=== PATIENT | male | born 1960 | race Caucasian/White ===

== ENCOUNTER 2017-12-25 15:15 | Emergency (ER) | payer OTHER ==
[~2017-12-25] VITALS: Ht 162.6 cm; Wt 74.8 kg
[~2017-12-25 15:15] MED LIST: ALLO100; AMLO10 PO; AMLO5 PO; AMLODIPINE-BEN1 EACH PO; CHLO10 PO; CHLO25 PO; Dilantin 100 m100 MG PO; LEVE500 PO; NIX59 ML EXT; PHENY100ER; THIA100 PO; Therapeutic M1 EAC5 PO
[2017-12-25] MEDS ORDERED: NIX59 ML TOP (15:50)
[2018-10-08] MEDS ORDERED: AMLO5 PO (09:29)
[2018-10-08] MEDS ORDERED: LEVE500 PO (09:29)
[2018-10-08] MEDS ORDERED: ZESTRIL40 MG PO (09:29)
[2018-10-08] MEDS ORDERED: AMIT75 PO (09:30)
[2018-10-08] MEDS ORDERED: MICROZIDE12.5 MG PO (09:30)
[2018-10-08] MEDS ORDERED: GABA300 (09:30)
[2018-10-08] MEDS ORDERED: Hair, Skin & N1 EACH PO (09:31)
[2018-10-08] MEDS ORDERED: VENL37.5ER PO (09:31)
[2018-10-08] MEDS ORDERED: Calci-Chew500 MG PO (09:31)
[2018-10-08] MEDS ORDERED: CRANBERRY250 MG PO (09:31)
== END 2017-12-25 16:00 | disposition home or self-care (01) ==
LOC: ER 15:15
DX: B86 Scabies (principal); F17.210 Nicotine dependence, cigarettes, uncomplicated; Z88.5 Allergy status to narcotic agent; Z59.0 Homelessness
CPT/HCPCS: 99283

== ENCOUNTER 2018-01-08 17:49 | Emergency (ER) | payer OTHER ==
[~2018-01-08] VITALS: Ht 172.7 cm; Wt 72.6 kg
[~2018-01-08 17:49] MED LIST changes: +NIX59 ML TOP
[2018-01-08] MEDS ORDERED: HYDHCL25 PO (17:59)
[2018-01-08] MEDS ORDERED: NIX59 ML EXT (17:59)
[2018-10-08] MEDS ORDERED: LEVE500 PO (09:29)
[2018-10-08] MEDS ORDERED: AMLO5 PO (09:29)
[2018-10-08] MEDS ORDERED: ZESTRIL40 MG PO (09:29)
[2018-10-08] MEDS ORDERED: GABA300 (09:30)
[2018-10-08] MEDS ORDERED: MICROZIDE12.5 MG PO (09:30)
[2018-10-08] MEDS ORDERED: AMIT75 PO (09:30)
[2018-10-08] MEDS ORDERED: VENL37.5ER PO (09:31)
[2018-10-08] MEDS ORDERED: CRANBERRY250 MG PO (09:31)
[2018-10-08] MEDS ORDERED: Hair, Skin & N1 EACH PO (09:31)
[2018-10-08] MEDS ORDERED: Calci-Chew500 MG PO (09:31)
== END 2018-01-08 18:15 | disposition home or self-care (01) ==
LOC: ER 17:49
DX: B85.2 Pediculosis, unspecified (principal); L29.9 Pruritus, unspecified; F17.210 Nicotine dependence, cigarettes, uncomplicated; Z88.5 Allergy status to narcotic agent; Z59.0 Homelessness
CPT/HCPCS: 99283

== ENCOUNTER 2018-01-26 00:13 | Emergency (ER) | payer OTHER ==
[~2018-01-26] VITALS: Ht 162.6 cm; Wt 63.5 kg
[~2018-01-26 00:13] MED LIST changes: +HYDHCL25 PO
[2018-01-26 00:48] LABS: BASOPHILS ABSOLUTE AUTO 0.09 K/mm3 (0.00-0.23); BASOPHILS PERCENT AUTO 1 % (0-2); EOSINOPHILS ABSOLUTE AUTO 0.71 K/mm3 (0.00-0.68); EOSINOPHILS PERCENT AUTO 7 % (0-6); Hematocrit 37.5 % (37.0-53.0); Hemoglobin 12.2 g/dL (13.5-17.5); IMMATURE GRAN PERCENT AUTO 2 % (0-1); LYMPHOCYTES PERCENT AUTO 20 % (21-46); MONOCYTES ABSOLUTE AUTO 0.83 K/mm3 (0.16-1.47); MONOCYTES PERCENT AUTO 9 % (4-13); Mean Corpuscular HGB 31.3 pg (26.0-34.0); Mean Corpuscular HGB Conc 32.5 g/dL (31.5-36.5); Mean Corpuscular Volume 96 fL (80-100); NEUTROPHILS ABSOLUTE AUTO 5.97 K/mm3 (1.96-9.15); NEUTROPHILS PERCENT AUTO 61 % (41-73); Platelet Count 527 K/mm3 (150-400); RDW Coefficient Variation 13.8 % (11.7-14.2); RDW Standard Deviation 49.1 fL (35.1-46.3)
[2018-01-26 01:02] LABS: International Normalized Ratio 1.02; Prothrombin Time Results 10.6 Sec (9.7-11.5)
[2018-01-26 01:11] LABS: Alanine Aminotransfer (ALT/SGP 22 U/L (12-78); Albumin, Blood 2.4 g/dL (3.4-5.0); Albumin/Globulin Ratio 0.4 (0.8-1.8); Alk Phos 78 U/L (50-136); Anion Gap 10 mmol/L (6-16); Aspartate Aminotrans (AST/SGOT 31 U/L (12-37); Bilirubin, Total 0.1 mg/dL (0.1-1.0); Blood Urea Nitrogen 15 mg/dL (8-24); CO2, Blood 26 mmol/L (21-32); Calcium, Blood 8.2 mg/dL (8.5-10.1); Chloride, Blood 104 mmol/L (98-108); Creatinine, Blood 0.83 mg/dL (0.60-1.20); Ethanol (Alcohol), Blood, Med 247 mg/dL; Globulin, Blood 5.9 g/dL (2.2-4.0); Glomerular Filtration Rate >60 (60-); Glucose, Blood 102 mg/dL (70-99); Potassium, Blood 3.8 mmol/L (3.5-5.5); Salicylate 2.7 mg/dL (2.8-20.0); Sodium, Blood 140 mmol/L (136-145); Total Protein, Blood 8.3 g/dL (6.4-8.2); Troponin I <0.015 ng/mL (0.000-0.040)
[2018-01-26 01:15] LABS: Thyroid Stimulating Hormone 0.892 uIU/mL (0.360-4.800)
[2018-01-26 01:22] LABS: Acetaminophen, Random <2.0 ug/mL (10.0-30.0)
[2018-01-26 04:37] LABS: Source, Urine Clean Catch
[2018-01-26 04:41] LABS: Bilirubin, Urine Neg (Neg); Blood, Urine Neg (Neg); Glucose Qualitative, Urine Neg (Neg); Ketones, Urine Neg (Neg); Leukocyte Esterase, Urine Neg (Neg); Nitrite, Urine Neg (Neg); Protein, Urine Neg (Neg); Urobilinogen, Urine NORM (Normal)
[2018-01-26 04:52] LABS: Appearance, Urine Clear (Clear); Color, Urine Yellow (P-Yellow)
[2018-01-26 04:59] LABS: U Amphetamine Screen Not Detected; U Barbituate Screen Not Detected; U Benzodiazapine Screen DETECTED; U Buprenorphine Screen Not Detected; U Cannabinoids Screen DETECTED; U Cocaine Screen Not Detected; U Methadone Screen Not Detected; U Methamphetamine Screen Not Detected; U Opiates Screen Not Detected; U Oxycodone Screen Not Detected; U Phencyclidine Screen Not Detected; U Propoxyphene Screen Not Detected
[2018-10-08] MEDS ORDERED: ZESTRIL40 MG PO (09:29)
[2018-10-08] MEDS ORDERED: LEVE500 PO (09:29)
[2018-10-08] MEDS ORDERED: AMLO5 PO (09:29)
[2018-10-08] MEDS ORDERED: AMIT75 PO (09:30)
[2018-10-08] MEDS ORDERED: MICROZIDE12.5 MG PO (09:30)
[2018-10-08] MEDS ORDERED: GABA300 (09:30)
[2018-10-08] MEDS ORDERED: CRANBERRY250 MG PO (09:31)
[2018-10-08] MEDS ORDERED: Hair, Skin & N1 EACH PO (09:31)
[2018-10-08] MEDS ORDERED: VENL37.5ER PO (09:31)
[2018-10-08] MEDS ORDERED: Calci-Chew500 MG PO (09:31)
== END 2018-01-26 06:06 | disposition home or self-care (01) ==
LOC: ER 00:13
PROVIDERS: Emergency Medicine
DX: T68.XXXA Hypothermia, initial encounter (principal); F10.129 Alcohol abuse with intoxication, unspecified; F17.210 Nicotine dependence, cigarettes, uncomplicated; Z88.5 Allergy status to narcotic agent; Y90.8 Blood alcohol level of 240 mg/100 ml or more
CPT/HCPCS: 36415; 80053; 81003; 82550; 83690; 84443; 84484; 85025; 85610; 85730; 96361; 96374; 99285; G0480; J2405; J7030

== ENCOUNTER 2018-02-08 14:08 | Inpatient (IN) | payer OTHER ==
[~2018-02-08] VITALS: Ht 162.6 cm; Wt 75.5 kg
[2018-02-08 15:45] LABS: BASOPHILS ABSOLUTE AUTO 0.06 K/mm3 (0.00-0.23); BASOPHILS PERCENT AUTO 1 % (0-2); EOSINOPHILS ABSOLUTE AUTO 0.26 K/mm3 (0.00-0.68); EOSINOPHILS PERCENT AUTO 2 % (0-6); Hematocrit 27.3 % (37.0-53.0); Hemoglobin 8.6 g/dL (13.5-17.5); IMMATURE GRAN ABSOLUTE AUTO 0.27 K/mm3 (0.00-0.10); IMMATURE GRAN PERCENT AUTO 2 % (0-1); LYMPHOCYTES ABSOLUTE AUTO 1.32 K/mm3 (0.84-5.20); LYMPHOCYTES PERCENT AUTO 11 % (21-46); MONOCYTES PERCENT AUTO 7 % (4-13); Mean Corpuscular HGB 29.5 pg (26.0-34.0); Mean Corpuscular HGB Conc 31.5 g/dL (31.5-36.5); Mean Corpuscular Volume 94 fL (80-100); Mean Platelet Volume 9.3 fL (9.1-12.4); NEUTROPHILS ABSOLUTE AUTO 8.93 K/mm3 (1.96-9.15); NEUTROPHILS PERCENT AUTO 77 % (41-73); Platelet Count 675 K/mm3 (150-400); RDW Coefficient Variation 16.2 % (11.7-14.2); RDW Standard Deviation 55.9 fL (35.1-46.3); Red Blood Cell Count 2.92 M/mm3 (4.30-5.90); White Blood Cell Count 11.64 K/mm3 (4.00-11.30)
[2018-02-08 15:57] LABS: Alanine Aminotransfer (ALT/SGP 28 U/L (12-78); Albumin, Blood 1.7 g/dL (3.4-5.0); Albumin/Globulin Ratio 0.3 (0.8-1.8); Alk Phos 120 U/L (50-136); Anion Gap 8 mmol/L (6-16); Aspartate Aminotrans (AST/SGOT 47 U/L (12-37); Bilirubin, Total 0.3 mg/dL (0.1-1.0); Blood Urea Nitrogen 21 mg/dL (8-24); Bun/Creatinine Ratio 16.8 (12.0-20.0); CO2, Blood 28 mmol/L (21-32); Calcium, Blood 8.5 mg/dL (8.5-10.1); Chloride, Blood 102 mmol/L (98-108); Creatinine, Blood 1.25 mg/dL (0.60-1.20); Glomerular Filtration Rate >60 (60-); Glucose, Blood 98 mg/dL (70-99); Potassium, Blood 3.7 mmol/L (3.5-5.5); Sodium, Blood 138 mmol/L (136-145); Total Protein, Blood 7.7 g/dL (6.4-8.2)
[2018-02-08 17:59] LABS: Percent Saturation 6.5 % (20.0-50.0)
[2018-02-09 05:01] LABS: BASOPHILS ABSOLUTE AUTO 0.06 K/mm3 (0.00-0.23); BASOPHILS PERCENT AUTO 1 % (0-2); EOSINOPHILS ABSOLUTE AUTO 0.27 K/mm3 (0.00-0.68); EOSINOPHILS PERCENT AUTO 2 % (0-6); Hematocrit 26.3 % (37.0-53.0); Hemoglobin 8.4 g/dL (13.5-17.5); IMMATURE GRAN ABSOLUTE AUTO 0.29 K/mm3 (0.00-0.10); IMMATURE GRAN PERCENT AUTO 3 % (0-1); LYMPHOCYTES ABSOLUTE AUTO 1.53 K/mm3 (0.84-5.20); LYMPHOCYTES PERCENT AUTO 13 % (21-46); MONOCYTES PERCENT AUTO 6 % (4-13); Mean Corpuscular HGB 29.3 pg (26.0-34.0); Mean Corpuscular HGB Conc 31.9 g/dL (31.5-36.5); Mean Corpuscular Volume 92 fL (80-100); Mean Platelet Volume 9.2 fL (9.1-12.4); NEUTROPHILS ABSOLUTE AUTO 8.79 K/mm3 (1.96-9.15); NEUTROPHILS PERCENT AUTO 76 % (41-73); Platelet Count 663 K/mm3 (150-400); RDW Coefficient Variation 16.5 % (11.7-14.2); Red Blood Cell Count 2.87 M/mm3 (4.30-5.90); White Blood Cell Count 11.64 K/mm3 (4.00-11.30)
[2018-02-09 05:13] LABS: Albumin, Blood 1.6 g/dL (3.4-5.0); Anion Gap 9 mmol/L (6-16); Blood Urea Nitrogen 14 mg/dL (8-24); Bun/Creatinine Ratio 16.5 (12.0-20.0); CO2, Blood 25 mmol/L (21-32); Calcium, Blood 8.1 mg/dL (8.5-10.1); Chloride, Blood 102 mmol/L (98-108); Creatinine, Blood 0.85 mg/dL (0.60-1.20); Glomerular Filtration Rate >60 (60-); Glucose, Blood 83 mg/dL (70-99); Potassium, Blood 3.7 mmol/L (3.5-5.5); Sodium, Blood 136 mmol/L (136-145)
[2018-02-10 04:53] LABS: BASOPHILS ABSOLUTE AUTO 0.06 K/mm3 (0.00-0.23); BASOPHILS PERCENT AUTO 1 % (0-2); EOSINOPHILS ABSOLUTE AUTO 0.23 K/mm3 (0.00-0.68); EOSINOPHILS PERCENT AUTO 2 % (0-6); Hematocrit 27.2 % (37.0-53.0); Hemoglobin 8.7 g/dL (13.5-17.5); IMMATURE GRAN ABSOLUTE AUTO 0.25 K/mm3 (0.00-0.10); IMMATURE GRAN PERCENT AUTO 2 % (0-1); LYMPHOCYTES PERCENT AUTO 15 % (21-46); MONOCYTES ABSOLUTE AUTO 0.79 K/mm3 (0.16-1.47); MONOCYTES PERCENT AUTO 6 % (4-13); Mean Corpuscular HGB 29.2 pg (26.0-34.0); Mean Corpuscular Volume 91 fL (80-100); NEUTROPHILS ABSOLUTE AUTO 9.22 K/mm3 (1.96-9.15); NEUTROPHILS PERCENT AUTO 75 % (41-73); Platelet Count 612 K/mm3 (150-400); RDW Coefficient Variation 16.7 % (11.7-14.2); RDW Standard Deviation 56.7 fL (35.1-46.3); Red Blood Cell Count 2.98 M/mm3 (4.30-5.90); White Blood Cell Count 12.35 K/mm3 (4.00-11.30)
[2018-02-10 05:17] LABS: Albumin, Blood 1.7 g/dL (3.4-5.0); Anion Gap 8 mmol/L (6-16); Blood Urea Nitrogen 10 mg/dL (8-24); Bun/Creatinine Ratio 13.5 (12.0-20.0); CO2, Blood 28 mmol/L (21-32); Calcium, Blood 8.1 mg/dL (8.5-10.1); Chloride, Blood 96 mmol/L (98-108); Creatinine, Blood 0.74 mg/dL (0.60-1.20); Glomerular Filtration Rate >60 (60-); Glucose, Blood 85 mg/dL (70-99); Potassium, Blood 3.4 mmol/L (3.5-5.5); Sodium, Blood 132 mmol/L (136-145)
[2018-02-11 05:47] LABS: BASOPHILS ABSOLUTE AUTO 0.06 K/mm3 (0.00-0.23); BASOPHILS PERCENT AUTO 1 % (0-2); EOSINOPHILS ABSOLUTE AUTO 0.31 K/mm3 (0.00-0.68); EOSINOPHILS PERCENT AUTO 4 % (0-6); Hematocrit 27.3 % (37.0-53.0); Hemoglobin 8.7 g/dL (13.5-17.5); IMMATURE GRAN PERCENT AUTO 2 % (0-1); LYMPHOCYTES ABSOLUTE AUTO 1.37 K/mm3 (0.84-5.20); LYMPHOCYTES PERCENT AUTO 15 % (21-46); MONOCYTES ABSOLUTE AUTO 0.61 K/mm3 (0.16-1.47); MONOCYTES PERCENT AUTO 7 % (4-13); Mean Corpuscular HGB 28.6 pg (26.0-34.0); Mean Corpuscular HGB Conc 31.9 g/dL (31.5-36.5); Mean Corpuscular Volume 90 fL (80-100); Mean Platelet Volume 9.8 fL (9.1-12.4); NEUTROPHILS ABSOLUTE AUTO 6.42 K/mm3 (1.96-9.15); NEUTROPHILS PERCENT AUTO 72 % (41-73); Platelet Count 545 K/mm3 (150-400); RDW Coefficient Variation 16.7 % (11.7-14.2); Red Blood Cell Count 3.04 M/mm3 (4.30-5.90); White Blood Cell Count 8.97 K/mm3 (4.00-11.30)
[2018-02-11 06:06] LABS: Albumin, Blood 1.8 g/dL (3.4-5.0); Anion Gap 8 mmol/L (6-16); Blood Urea Nitrogen 16 mg/dL (8-24); Bun/Creatinine Ratio 20.4 (12.0-20.0); CO2, Blood 26 mmol/L (21-32); Calcium, Blood 8.5 mg/dL (8.5-10.1); Chloride, Blood 97 mmol/L (98-108); Creatinine, Blood 0.78 mg/dL (0.60-1.20); Glomerular Filtration Rate >60 (60-); Glucose, Blood 85 mg/dL (70-99); Phosphorus, Blood 4.3 mg/dL (2.5-4.9); Potassium, Blood 3.9 mmol/L (3.5-5.5); Sodium, Blood 131 mmol/L (136-145)
[2018-02-12 05:38] LABS: BASOPHILS ABSOLUTE AUTO 0.09 K/mm3 (0.00-0.23); BASOPHILS PERCENT AUTO 1 % (0-2); EOSINOPHILS ABSOLUTE AUTO 0.44 K/mm3 (0.00-0.68); EOSINOPHILS PERCENT AUTO 5 % (0-6); Hematocrit 30.3 % (37.0-53.0); Hemoglobin 9.6 g/dL (13.5-17.5); IMMATURE GRAN ABSOLUTE AUTO 0.18 K/mm3 (0.00-0.10); IMMATURE GRAN PERCENT AUTO 2 % (0-1); LYMPHOCYTES ABSOLUTE AUTO 1.76 K/mm3 (0.84-5.20); LYMPHOCYTES PERCENT AUTO 19 % (21-46); MONOCYTES ABSOLUTE AUTO 0.77 K/mm3 (0.16-1.47); MONOCYTES PERCENT AUTO 8 % (4-13); Mean Corpuscular HGB 28.5 pg (26.0-34.0); Mean Corpuscular HGB Conc 31.7 g/dL (31.5-36.5); Mean Corpuscular Volume 90 fL (80-100); Mean Platelet Volume 9.4 fL (9.1-12.4); NEUTROPHILS ABSOLUTE AUTO 6.08 K/mm3 (1.96-9.15); NEUTROPHILS PERCENT AUTO 65 % (41-73); Platelet Count 671 K/mm3 (150-400); RDW Coefficient Variation 16.8 % (11.7-14.2); RDW Standard Deviation 55.4 fL (35.1-46.3); Red Blood Cell Count 3.37 M/mm3 (4.30-5.90); White Blood Cell Count 9.32 K/mm3 (4.00-11.30)
[2018-02-12 06:02] LABS: Albumin, Blood 2.1 g/dL (3.4-5.0); Anion Gap 6 mmol/L (6-16); Blood Urea Nitrogen 26 mg/dL (8-24); Bun/Creatinine Ratio 29.3 (12.0-20.0); CO2, Blood 30 mmol/L (21-32); Calcium, Blood 9.1 mg/dL (8.5-10.1); Chloride, Blood 96 mmol/L (98-108); Creatinine, Blood 0.89 mg/dL (0.60-1.20); Glomerular Filtration Rate >60 (60-); Glucose, Blood 88 mg/dL (70-99); Phosphorus, Blood 3.9 mg/dL (2.5-4.9); Potassium, Blood 4.5 mmol/L (3.5-5.5); Sodium, Blood 132 mmol/L (136-145)
[2018-02-14 14:17] LABS: Stool Occult Blood Guaiac 1 Neg (Neg)
[2018-02-15] MEDS ORDERED: HYDCHL25 PO (14:06)
[2018-02-15] MEDS ORDERED: GABA400 PO (14:07)
[2018-02-15] MEDS ORDERED: Juven1 EACH PO (14:07)
[2018-02-15] MEDS ORDERED: GABA100 PO (14:09)
[2018-02-15] MEDS ORDERED: NICO21TP TOP (14:10)
[2018-02-15] MEDS ORDERED: METO50 PO (14:13)
[2018-02-15] MEDS ORDERED: SACC250C PO (14:14)
[2018-02-15] MEDS ORDERED: Cleocin HCl300 MG PO (14:16)
== END 2018-02-15 15:13 | disposition home or self-care (01) | DRG 872 ==
LOC: ER 14:08 → MEDS 17:17
PROVIDERS: Family Medicine; Internal Medicine; Physician Assistant
DX: A41.9 Sepsis, unspecified organism (principal); L03.116 Cellulitis of left lower limb; L03.115 Cellulitis of right lower limb; N17.9 Acute kidney failure, unspecified; E87.1 Hypo-osmolality and hyponatremia; E44.1 Mild protein-calorie malnutrition; Z68.28 Body mass index [BMI] 28.0-28.9, adult; S91.001A Unspecified open wound, right ankle, initial encounter; D63.8 Anemia in other chronic diseases classified elsewhere; F10.20 Alcohol dependence, uncomplicated; M10.9 Gout, unspecified; I10 Essential (primary) hypertension; G62.9 Polyneuropathy, unspecified; B95.61 Methicillin susceptible Staphylococcus aureus infection as the cause of diseases classified elsewhere; B95.0 Streptococcus, group A, as the cause of diseases classified elsewhere; D47.3 Essential (hemorrhagic) thrombocythemia; F17.210 Nicotine dependence, cigarettes, uncomplicated; Z59.0 Homelessness; Z88.5 Allergy status to narcotic agent
CPT/HCPCS: 36415; 73701; 80053; 80069; 82272; 82607; 82728; 82746; 83540; 83550; 83605; 85025; 87070; 87075; 87077; 87147; 87186; 87205; 93970; 96365; 99285; J0360; J0690; J1650; J2060; J7030; Q2038; Q9967

== ENCOUNTER 2018-02-19 15:16 | Emergency (ER) | payer OTHER ==
[~2018-02-19] VITALS: Ht 157.5 cm; Wt 74.0 kg
[~2018-02-19 15:16] MED LIST changes: +Cleocin HCl300 MG PO; +GABA100 PO; +GABA400 PO; +HYDCHL25 PO; +Juven1 EACH PO; +METO50 PO; +NICO21TP TOP; +SACC250C PO
[2018-02-19] MEDS ORDERED: Percocet 5-3251 EACH PO (17:39)
[2018-02-19] MEDS ORDERED: IBUP800 PO (17:39)
== END 2018-02-19 17:50 | disposition home or self-care (01) ==
LOC: ER 15:16
DX: L03.116 Cellulitis of left lower limb (principal); L03.115 Cellulitis of right lower limb; L97.819 Non-pressure chronic ulcer of other part of right lower leg with unspecified severity; I10 Essential (primary) hypertension; G40.909 Epilepsy, unspecified, not intractable, without status epilepticus; G62.9 Polyneuropathy, unspecified; F17.210 Nicotine dependence, cigarettes, uncomplicated; Z88.5 Allergy status to narcotic agent; Z79.899 Other long term (current) drug therapy
CPT/HCPCS: 99283

== ENCOUNTER 2018-02-23 09:54 | Emergency (ER) | payer OTHER ==
[~2018-02-23] VITALS: Ht 157.5 cm; Wt 73.9 kg
[~2018-02-23 09:54] MED LIST changes: +IBUP800 PO; +Percocet 5-3251 EACH PO
[2018-02-23] MEDS ORDERED: Neurontin 100100 MG PO (10:33)
== END 2018-02-23 10:53 | disposition home or self-care (01) ==
LOC: ER 09:54
DX: L97.819 Non-pressure chronic ulcer of other part of right lower leg with unspecified severity (principal); L97.829 Non-pressure chronic ulcer of other part of left lower leg with unspecified severity; I87.2 Venous insufficiency (chronic) (peripheral); G62.9 Polyneuropathy, unspecified; F17.210 Nicotine dependence, cigarettes, uncomplicated; Z88.5 Allergy status to narcotic agent; Z79.899 Other long term (current) drug therapy
CPT/HCPCS: 99282

== ENCOUNTER 2018-02-27 11:18 | Emergency (ER) | payer OTHER ==
[~2018-02-27] VITALS: Ht 160 cm; Wt 73.9 kg
[~2018-02-27 11:18] MED LIST changes: +Neurontin 100100 MG PO
[2018-02-27 12:26] LABS: BASOPHILS ABSOLUTE AUTO 0.05 K/mm3 (0.00-0.23); BASOPHILS PERCENT AUTO 1 % (0-2); EOSINOPHILS ABSOLUTE AUTO 0.83 K/mm3 (0.00-0.68); EOSINOPHILS PERCENT AUTO 8 % (0-6); Hematocrit 32.4 % (37.0-53.0); Hemoglobin 10.2 g/dL (13.5-17.5); IMMATURE GRAN ABSOLUTE AUTO 0.04 K/mm3 (0.00-0.10); IMMATURE GRAN PERCENT AUTO 0 % (0-1); LYMPHOCYTES ABSOLUTE AUTO 2.02 K/mm3 (0.84-5.20); LYMPHOCYTES PERCENT AUTO 20 % (21-46); MONOCYTES ABSOLUTE AUTO 0.93 K/mm3 (0.16-1.47); MONOCYTES PERCENT AUTO 9 % (4-13); Mean Corpuscular HGB 28.7 pg (26.0-34.0); Mean Corpuscular HGB Conc 31.5 g/dL (31.5-36.5); Mean Corpuscular Volume 91 fL (80-100); Mean Platelet Volume 9.2 fL (9.1-12.4); NEUTROPHILS ABSOLUTE AUTO 6.51 K/mm3 (1.96-9.15); NEUTROPHILS PERCENT AUTO 63 % (41-73); Platelet Count 331 K/mm3 (150-400); RDW Coefficient Variation 16.8 % (11.7-14.2); RDW Standard Deviation 57.1 fL (35.1-46.3); Red Blood Cell Count 3.55 M/mm3 (4.30-5.90); White Blood Cell Count 10.38 K/mm3 (4.00-11.30)
[2018-02-27 12:53] LABS: Alanine Aminotransfer (ALT/SGP 23 U/L (12-78); Albumin, Blood 2.7 g/dL (3.4-5.0); Albumin/Globulin Ratio 0.4 (0.8-1.8); Alk Phos 73 U/L (50-136); Anion Gap 9 mmol/L (6-16); Aspartate Aminotrans (AST/SGOT 26 U/L (12-37); Bilirubin, Total 0.3 mg/dL (0.1-1.0); Blood Urea Nitrogen 21 mg/dL (8-24); Bun/Creatinine Ratio 18.1 (12.0-20.0); CO2, Blood 26 mmol/L (21-32); Calcium, Blood 8.4 mg/dL (8.5-10.1); Chloride, Blood 102 mmol/L (98-108); Creatinine, Blood 1.16 mg/dL (0.60-1.20); Globulin, Blood 6.3 g/dL (2.2-4.0); Glomerular Filtration Rate >60 (60-); Glucose, Blood 82 mg/dL (70-99); Potassium, Blood 3.5 mmol/L (3.5-5.5); Sodium, Blood 137 mmol/L (136-145)
[2018-02-27] MEDS ORDERED: IBUP800 PO (16:06)
[2018-02-27] MEDS ORDERED: Ultram50 MG PO (16:06)
== END 2018-02-27 16:21 | disposition home or self-care (01) ==
LOC: ER 11:18
PROVIDERS: Internal Medicine
DX: L97.929 Non-pressure chronic ulcer of unspecified part of left lower leg with unspecified severity (principal); L97.919 Non-pressure chronic ulcer of unspecified part of right lower leg with unspecified severity; L03.116 Cellulitis of left lower limb; L03.115 Cellulitis of right lower limb; F17.210 Nicotine dependence, cigarettes, uncomplicated; Z88.5 Allergy status to narcotic agent; Z79.899 Other long term (current) drug therapy
CPT/HCPCS: 36415; 80053; 85025; 99283

== ENCOUNTER 2018-03-04 07:53 | Inpatient (IN) | payer OTHER ==
[~2018-03-04] VITALS: Ht 157.5 cm; Wt 73.5 kg
[~2018-03-04 07:53] MED LIST changes: +Ultram50 MG PO
[2018-03-04 08:26] LABS: BASOPHILS ABSOLUTE AUTO 0.07 K/mm3 (0.00-0.23); BASOPHILS PERCENT AUTO 0 % (0-2); EOSINOPHILS ABSOLUTE AUTO 1.36 K/mm3 (0.00-0.68); EOSINOPHILS PERCENT AUTO 8 % (0-6); Hematocrit 36.1 % (37.0-53.0); Hemoglobin 11.4 g/dL (13.5-17.5); IMMATURE GRAN ABSOLUTE AUTO 0.22 K/mm3 (0.00-0.10); IMMATURE GRAN PERCENT AUTO 1 % (0-1); LYMPHOCYTES ABSOLUTE AUTO 1.73 K/mm3 (0.84-5.20); LYMPHOCYTES PERCENT AUTO 10 % (21-46); MONOCYTES ABSOLUTE AUTO 1.26 K/mm3 (0.16-1.47); MONOCYTES PERCENT AUTO 7 % (4-13); Mean Corpuscular HGB 27.9 pg (26.0-34.0); Mean Corpuscular HGB Conc 31.6 g/dL (31.5-36.5); Mean Corpuscular Volume 89 fL (80-100); Mean Platelet Volume 9.4 fL (9.1-12.4); NEUTROPHILS ABSOLUTE AUTO 12.64 K/mm3 (1.96-9.15); NEUTROPHILS PERCENT AUTO 73 % (41-73); Platelet Count 411 K/mm3 (150-400); RDW Coefficient Variation 16.7 % (11.7-14.2); RDW Standard Deviation 54.4 fL (35.1-46.3); Red Blood Cell Count 4.08 M/mm3 (4.30-5.90); White Blood Cell Count 17.28 K/mm3 (4.00-11.30)
[2018-03-04 08:50] LABS: Alanine Aminotransfer (ALT/SGP 14 U/L (12-78); Albumin, Blood 2.7 g/dL (3.4-5.0); Albumin/Globulin Ratio 0.4 (0.8-1.8); Alk Phos 88 U/L (50-136); Anion Gap 11 mmol/L (6-16); Aspartate Aminotrans (AST/SGOT 20 U/L (12-37); Bilirubin, Total 0.3 mg/dL (0.1-1.0); Blood Urea Nitrogen 17 mg/dL (8-24); CO2, Blood 21 mmol/L (21-32); Calcium, Blood 8.7 mg/dL (8.5-10.1); Chloride, Blood 105 mmol/L (98-108); Creatinine, Blood 1.06 mg/dL (0.60-1.20); Globulin, Blood 6.7 g/dL (2.2-4.0); Glomerular Filtration Rate >60 (60-); Glucose, Blood 91 mg/dL (70-99); Potassium, Blood 2.5 mmol/L (3.5-5.5); Sodium, Blood 137 mmol/L (136-145); Total Protein, Blood 9.4 g/dL (6.4-8.2)
[2018-03-04] MEDS ORDERED: TRAM50 PO (16:28)
[2018-03-04] MEDS ORDERED: OXYC1TAB11 (16:30)
[2018-03-04] MEDS ORDERED: Percocet 5-3251 EACH PO (16:37)
[2018-03-04] MEDS ORDERED: GABA400 PO (16:38)
[2018-03-04] MEDS ORDERED: GABA100 PO (16:40)
[2018-03-04] MEDS ORDERED: HYDCHL25 PO (16:41)
[2018-03-04] MEDS ORDERED: NICO21TP (16:42)
[2018-03-04] MEDS ORDERED: METO50ER PO (16:43)
[2018-03-05 05:21] LABS: BASOPHILS ABSOLUTE AUTO 0.08 K/mm3 (0.00-0.23); BASOPHILS PERCENT AUTO 1 % (0-2); EOSINOPHILS ABSOLUTE AUTO 1.75 K/mm3 (0.00-0.68); EOSINOPHILS PERCENT AUTO 15 % (0-6); Hematocrit 31.4 % (37.0-53.0); Hemoglobin 10.2 g/dL (13.5-17.5); IMMATURE GRAN PERCENT AUTO 3 % (0-1); LYMPHOCYTES ABSOLUTE AUTO 1.81 K/mm3 (0.84-5.20); LYMPHOCYTES PERCENT AUTO 15 % (21-46); MONOCYTES ABSOLUTE AUTO 0.96 K/mm3 (0.16-1.47); MONOCYTES PERCENT AUTO 8 % (4-13); Mean Corpuscular HGB 28.6 pg (26.0-34.0); Mean Corpuscular HGB Conc 32.5 g/dL (31.5-36.5); Mean Corpuscular Volume 88 fL (80-100); Mean Platelet Volume 9.4 fL (9.1-12.4); NEUTROPHILS ABSOLUTE AUTO 6.89 K/mm3 (1.96-9.15); NEUTROPHILS PERCENT AUTO 59 % (41-73); Platelet Count 401 K/mm3 (150-400); RDW Coefficient Variation 16.7 % (11.7-14.2); RDW Standard Deviation 54.3 fL (35.1-46.3); Red Blood Cell Count 3.57 M/mm3 (4.30-5.90); White Blood Cell Count 11.79 K/mm3 (4.00-11.30)
[2018-03-05 05:49] LABS: Anion Gap 8 mmol/L (6-16); Blood Urea Nitrogen 25 mg/dL (8-24); Bun/Creatinine Ratio 27.7 (12.0-20.0); CO2, Blood 22 mmol/L (21-32); Calcium, Blood 9.1 mg/dL (8.5-10.1); Chloride, Blood 110 mmol/L (98-108); Glomerular Filtration Rate >60 (60-); Glucose, Blood 108 mg/dL (70-99); Potassium, Blood 3.2 mmol/L (3.5-5.5); Sodium, Blood 140 mmol/L (136-145)
[2018-03-06 05:39] LABS: BASOPHILS PERCENT AUTO 1 % (0-2); EOSINOPHILS ABSOLUTE AUTO 1.82 K/mm3 (0.00-0.68); EOSINOPHILS PERCENT AUTO 20 % (0-6); Hematocrit 33.8 % (37.0-53.0); Hemoglobin 10.7 g/dL (13.5-17.5); IMMATURE GRAN PERCENT AUTO 4 % (0-1); LYMPHOCYTES ABSOLUTE AUTO 1.57 K/mm3 (0.84-5.20); LYMPHOCYTES PERCENT AUTO 17 % (21-46); MONOCYTES ABSOLUTE AUTO 0.96 K/mm3 (0.16-1.47); MONOCYTES PERCENT AUTO 11 % (4-13); Mean Corpuscular HGB 27.8 pg (26.0-34.0); Mean Corpuscular HGB Conc 31.7 g/dL (31.5-36.5); Mean Corpuscular Volume 88 fL (80-100); Mean Platelet Volume 9.2 fL (9.1-12.4); NEUTROPHILS ABSOLUTE AUTO 4.26 K/mm3 (1.96-9.15); NEUTROPHILS PERCENT AUTO 47 % (41-73); Platelet Count 395 K/mm3 (150-400); RDW Coefficient Variation 16.9 % (11.7-14.2); Red Blood Cell Count 3.85 M/mm3 (4.30-5.90); White Blood Cell Count 9.11 K/mm3 (4.00-11.30)
[2018-03-06 05:59] LABS: Anion Gap 5 mmol/L (6-16); Blood Urea Nitrogen 22 mg/dL (8-24); Bun/Creatinine Ratio 25.8 (12.0-20.0); CO2, Blood 25 mmol/L (21-32); Calcium, Blood 9.1 mg/dL (8.5-10.1); Chloride, Blood 111 mmol/L (98-108); Creatinine, Blood 0.85 mg/dL (0.60-1.20); Glomerular Filtration Rate >60 (60-); Glucose, Blood 87 mg/dL (70-99); Potassium, Blood 3.7 mmol/L (3.5-5.5); Sodium, Blood 141 mmol/L (136-145)
[2018-03-07 05:28] LABS: BASOPHILS ABSOLUTE AUTO 0.09 K/mm3 (0.00-0.23); BASOPHILS PERCENT AUTO 1 % (0-2); EOSINOPHILS PERCENT AUTO 17 % (0-6); Hematocrit 31.6 % (37.0-53.0); Hemoglobin 10.1 g/dL (13.5-17.5); IMMATURE GRAN ABSOLUTE AUTO 0.51 K/mm3 (0.00-0.10); IMMATURE GRAN PERCENT AUTO 5 % (0-1); LYMPHOCYTES ABSOLUTE AUTO 1.64 K/mm3 (0.84-5.20); LYMPHOCYTES PERCENT AUTO 15 % (21-46); MONOCYTES ABSOLUTE AUTO 1.14 K/mm3 (0.16-1.47); MONOCYTES PERCENT AUTO 11 % (4-13); Mean Corpuscular HGB 27.9 pg (26.0-34.0); Mean Corpuscular Volume 87 fL (80-100); Mean Platelet Volume 9.1 fL (9.1-12.4); NEUTROPHILS ABSOLUTE AUTO 5.69 K/mm3 (1.96-9.15); NEUTROPHILS PERCENT AUTO 52 % (41-73); Platelet Count 401 K/mm3 (150-400); RDW Coefficient Variation 16.6 % (11.7-14.2); RDW Standard Deviation 53.1 fL (35.1-46.3); Red Blood Cell Count 3.62 M/mm3 (4.30-5.90); White Blood Cell Count 10.87 K/mm3 (4.00-11.30)
[2018-03-07 05:55] LABS: Anion Gap 6 mmol/L (6-16); Blood Urea Nitrogen 22 mg/dL (8-24); Bun/Creatinine Ratio 29.1 (12.0-20.0); CO2, Blood 24 mmol/L (21-32); Chloride, Blood 109 mmol/L (98-108); Creatinine, Blood 0.76 mg/dL (0.60-1.20); Glomerular Filtration Rate >60 (60-); Glucose, Blood 90 mg/dL (70-99); Potassium, Blood 4.1 mmol/L (3.5-5.5); Sodium, Blood 139 mmol/L (136-145)
[2018-03-08 12:55] LABS: Vancomycin, Trough 11.9 ug/mL (5.0-10.0)
[2018-03-09] MEDS ORDERED: GABA100 PO (10:05)
[2018-03-09] MEDS ORDERED: Acetaminophen325 M1 PO (10:07)
[2018-03-09] MEDS ORDERED: Amlodipine Besyl5 MG PO (10:08)
[2018-03-09] MEDS ORDERED: LISI20 PO (10:09)
[2018-03-09] MEDS ORDERED: IBUP600 PO (10:09)
[2018-03-09] MEDS ORDERED: Bactrim Ds Tab1 EACH PO (10:10)
== END 2018-03-09 12:18 | disposition home or self-care (01) | DRG 853 ==
LOC: ER 07:53 → MEDS 11:17 → ENPENDDIS 03-09 10:58 → MEDS 03-09 12:18
PROVIDERS: Internal Medicine; Physician Assistant
PROC: 0KDS0ZZ Extraction of Right Lower Leg Muscle, Open Approach (ICD-10-PCS; principal; 2018-03-08)
DX: A40.0 Sepsis due to streptococcus, group A (principal); L89.514 Pressure ulcer of right ankle, stage 4; E43 Unspecified severe protein-calorie malnutrition; L03.116 Cellulitis of left lower limb; L03.115 Cellulitis of right lower limb; A41.02 Sepsis due to Methicillin resistant Staphylococcus aureus; F10.21 Alcohol dependence, in remission; I10 Essential (primary) hypertension; B86 Scabies; M10.9 Gout, unspecified; G62.9 Polyneuropathy, unspecified; Z59.0 Homelessness; B96.89 Other specified bacterial agents as the cause of diseases classified elsewhere; Z68.30 Body mass index [BMI] 30.0-30.9, adult; F17.210 Nicotine dependence, cigarettes, uncomplicated; R20.8 Other disturbances of skin sensation
CPT/HCPCS: 36415; 73610; 80048; 80053; 80202; 83605; 85025; 86141; 87040; 87070; 87075; 87077; 87147; 87186; 87205; 93922; 96361; 96365; 96366; 96375; 99285; J0360; J0690; J1650; J2001; J2250; J3010; J3370; J3411; J3475; J3480; J7030; J7042; J7120

== ENCOUNTER 2018-03-27 00:21 | Day surgery (SDC) | payer OTHER ==
[~2018-03-27 00:21] MED LIST changes: +Acetaminophen325 M1 PO; +Amlodipine Besyl5 MG PO; +Bactrim Ds Tab1 EACH PO; +IBUP600 PO; +LISI20 PO; +METO50ER PO; +NICO21TP; +OXYC1TAB11; +TRAM50 PO
== END 2018-03-27 10:12 | disposition home or self-care (01) ==
LOC: WOUND 00:21
DX: Z48.00 Encounter for change or removal of nonsurgical wound dressing (principal); S81.801A Unspecified open wound, right lower leg, initial encounter; S81.802A Unspecified open wound, left lower leg, initial encounter; L97.909 Non-pressure chronic ulcer of unspecified part of unspecified lower leg with unspecified severity; L03.119 Cellulitis of unspecified part of limb; F10.20 Alcohol dependence, uncomplicated; I10 Essential (primary) hypertension; R60.0 Localized edema; L97.322 Non-pressure chronic ulcer of left ankle with fat layer exposed; L97.312 Non-pressure chronic ulcer of right ankle with fat layer exposed
CPT/HCPCS: G0463

== ENCOUNTER 2018-04-03 13:40 | Day surgery (SDC) | payer OTHER | END 2018-04-03 22:43 | disposition home or self-care (01) | LOC: WOUND 13:40 | DX: Z48.00 Encounter for change or removal of nonsurgical wound dressing (principal); S81.801A Unspecified open wound, right lower leg, initial encounter; S81.802A Unspecified open wound, left lower leg, initial encounter; L97.909 Non-pressure chronic ulcer of unspecified part of unspecified lower leg with unspecified severity; L03.119 Cellulitis of unspecified part of limb; F10.20 Alcohol dependence, uncomplicated; I10 Essential (primary) hypertension; E43 Unspecified severe protein-calorie malnutrition; F17.210 Nicotine dependence, cigarettes, uncomplicated | CPT/HCPCS: G0463 ==

== ENCOUNTER 2018-04-12 10:45 | Day surgery (SDC) | payer OTHER | END 2018-04-12 12:26 | disposition home or self-care (01) | LOC: WOUND 10:45 | DX: Z48.00 Encounter for change or removal of nonsurgical wound dressing (principal); S81.802A Unspecified open wound, left lower leg, initial encounter; L97.909 Non-pressure chronic ulcer of unspecified part of unspecified lower leg with unspecified severity; L03.119 Cellulitis of unspecified part of limb; F10.20 Alcohol dependence, uncomplicated; I10 Essential (primary) hypertension; E43 Unspecified severe protein-calorie malnutrition; R60.0 Localized edema | CPT/HCPCS: G0463 ==

== ENCOUNTER 2018-04-18 07:56 | Day surgery (SDC) | payer OTHER | END 2018-04-18 22:54 | disposition home or self-care (01) | LOC: WOUND 07:56 | DX: Z48.00 Encounter for change or removal of nonsurgical wound dressing (principal); L97.318 Non-pressure chronic ulcer of right ankle with other specified severity; L03.119 Cellulitis of unspecified part of limb; F10.20 Alcohol dependence, uncomplicated; I10 Essential (primary) hypertension; E43 Unspecified severe protein-calorie malnutrition; R60.0 Localized edema | CPT/HCPCS: G0463 ==

== ENCOUNTER → 2018-04-21 | Outpatient (CLI) | payer OTHER | END | disposition home or self-care (01) | LOC: EDSTATUS 15:04 → LAB RH 20:40 | DX: L03.119 Cellulitis of unspecified part of limb (principal) | CPT/HCPCS: 87070; 87077; 87147; 87186; 87205 ==

== ENCOUNTER → 2018-04-23 | Outpatient (CLI) | payer OTHER ==
[2018-04-23 23:16] LABS: Bilirubin, Urine Neg (Neg); Blood, Urine Neg (Neg); Glucose Qualitative, Urine Neg (Neg); Ketones, Urine Neg (Neg); Leukocyte Esterase, Urine Neg (Neg); Nitrite, Urine Neg (Neg); Protein, Urine Neg (Neg); Specific Gravity, Urine 1.015 (1.003-1.022); Urobilinogen, Urine NORM (Normal)
[2018-04-23 23:20] LABS: Appearance, Urine Clear (Clear); Color, Urine Yellow (P-Yellow)
== END | disposition home or self-care (01) ==
LOC: EDSTATUS 15:05 → LAB RH 23:11
PROVIDERS: Nurse Practitioner Family
DX: N39.0 Urinary tract infection, site not specified (principal)
CPT/HCPCS: 81003

== ENCOUNTER 2018-04-26 10:57 | Day surgery (SDC) | payer OTHER | END 2018-04-26 11:52 | disposition home or self-care (01) | LOC: WOUND 10:57 | DX: Z48.00 Encounter for change or removal of nonsurgical wound dressing (principal); L97.318 Non-pressure chronic ulcer of right ankle with other specified severity; B95.7 Other staphylococcus as the cause of diseases classified elsewhere; B95.62 Methicillin resistant Staphylococcus aureus infection as the cause of diseases classified elsewhere; F10.20 Alcohol dependence, uncomplicated; I10 Essential (primary) hypertension; E43 Unspecified severe protein-calorie malnutrition; F17.210 Nicotine dependence, cigarettes, uncomplicated; R60.0 Localized edema | CPT/HCPCS: G0463 ==

== ENCOUNTER 2018-05-18 10:30 | Day surgery (SDC) | payer OTHER | END 2018-05-18 11:24 | disposition home or self-care (01) | LOC: WOUND 10:30 | DX: Z48.00 Encounter for change or removal of nonsurgical wound dressing (principal); S91.001A Unspecified open wound, right ankle, initial encounter; L97.909 Non-pressure chronic ulcer of unspecified part of unspecified lower leg with unspecified severity; L03.119 Cellulitis of unspecified part of limb; F10.20 Alcohol dependence, uncomplicated; I10 Essential (primary) hypertension; E43 Unspecified severe protein-calorie malnutrition; R60.0 Localized edema; F17.218 Nicotine dependence, cigarettes, with other nicotine-induced disorders | CPT/HCPCS: G0463 ==

== ENCOUNTER 2018-12-18 09:05 | Day surgery (SDC) | payer OTHER ==
[~2018-12-18] VITALS: Ht 157.5 cm; Wt 103.1 kg
[~2018-12-18 09:05] MED LIST changes: +ACET325 PO; +AMIT75 PO; +CRANBERRY250 MG PO; +Calci-Chew500 MG PO; +DIPH50 PO; +GABA300; +Hair, Skin & N1 EACH PO; +MICROZIDE12.5 MG PO; +Nicoderm Cq1 EAC1 TD; +VENL37.5ER PO; +ZESTRIL40 MG PO
--- NOTE | 2018-12-18 10:10 | NUR ---
12/18/18 1010 Maddy Smalls INJECTED MYLICON INTO BX PORT FOR IRRIGATION PER .
== END 2018-12-18 10:55 | disposition home or self-care (01) ==
LOC: ORSCSDS 09:05
PROVIDERS: Surgery
PROC: 0DJD8ZZ Inspection of Lower Intestinal Tract, Via Natural or Artificial Opening Endoscopic (ICD-10-PCS; principal; 2018-12-18 10:00)
DX: Z12.11 Encounter for screening for malignant neoplasm of colon (principal); Z86.010 Personal history of colon polyps; Z86.73 Personal history of transient ischemic attack (TIA), and cerebral infarction without residual deficits; E66.01 Morbid (severe) obesity due to excess calories; Z68.41 Body mass index [BMI] 40.0-44.9, adult; G47.33 Obstructive sleep apnea (adult) (pediatric); F17.210 Nicotine dependence, cigarettes, uncomplicated; Z79.899 Other long term (current) drug therapy
CPT/HCPCS: J0330; J1980; J2405; J7120

== ENCOUNTER 2018-12-21 12:05 | Emergency (ER) | payer OTHER ==
[~2018-12-21] VITALS: Ht 157.5 cm; Wt 103.4 kg
[2018-12-21] MEDS ORDERED: IBUP600 PO (13:32)
== END 2018-12-21 13:46 | disposition home or self-care (01) ==
LOC: ER 12:05
DX: L02.414 Cutaneous abscess of left upper limb (principal); Z88.5 Allergy status to narcotic agent; Z91.013 Allergy to seafood; Z79.899 Other long term (current) drug therapy; F17.210 Nicotine dependence, cigarettes, uncomplicated
CPT/HCPCS: 10060; 87070; 87075; 87077; 87147; 87186; 87205; 99283-25

== ENCOUNTER 2019-08-29 09:44 | Inpatient (IN) | payer OTHER ==
[~2019-08-29] VITALS: Ht 157.5 cm; Wt 77.2 kg
[2019-08-29 10:41] LABS: Hematocrit 42.8 % (37.0-53.0); Hemoglobin 15.1 g/dL (13.5-17.5); Mean Corpuscular HGB 32.6 pg (26.0-34.0); Mean Corpuscular HGB Conc 35.3 g/dL (31.5-36.5); Mean Corpuscular Volume 92 fL (80-100); Mean Platelet Volume 10.4 fL (9.1-12.4); Platelet Count 444 K/mm3 (150-400); RDW Coefficient Variation 14.5 % (11.7-14.2); RDW Standard Deviation 48.3 fL (35.1-46.3); Red Blood Cell Count 4.63 M/mm3 (4.30-5.90); White Blood Cell Count 25.95 K/mm3 (4.00-11.30)
[2019-08-29 10:45] LABS: Calcium, Ionized (POC) 0.93 mmol/L (1.10-1.46); Chloride (POC) 93 mmol/L (98-108); Glucose (ISTAT POC) 85 mg/dL (70-99); Hemoglobin (POC) 17.3 g/dL (13.5-17.5); Potassium (POC) 3.3 mmol/L (3.5-5.5); Sodium (POC) 125 mmol/L (135-148); Total CO2 (POC) 19 mmol/L (21-32)
[2019-08-29 10:47] LABS: Source, Urine Catheter
[2019-08-29 10:54] LABS: Blood, Urine 2+ (Neg); Glucose Qualitative, Urine Neg (Neg); Ketones, Urine Neg (Neg); Leukocyte Esterase, Urine Neg (Neg); Nitrite, Urine Neg (Neg); Protein, Urine 1+ (Neg); Specific Gravity, Urine 1.015 (1.003-1.022); Urobilinogen, Urine 2+ (Normal)
[2019-08-29 10:59] LABS: Ethanol (Alcohol), Blood, Med <3 mg/dL
[2019-08-29 11:00] LABS: International Normalized Ratio 1.25
[2019-08-29 11:10] LABS: BAND PERCENT MAN 9 % (0-8); BASOPHILS PERCENT MAN 0 % (0-2); EOSINOPHILS PERCENT MAN 0 % (0-6); LYMPHOCYTES ABSOLUTE MAN 0.25 K/mm3 (0.84-5.20); LYMPHOCYTES PERCENT MAN 1 % (21-46); MONOCYTES ABSOLUTE MAN 0.77 K/mm3 (0.16-1.47); MONOCYTES PERCENT MAN 3 % (4-13); NEUTROPHILS ABSOLUTE MAN 24.91 K/mm3 (1.96-9.15); SEG NEUTROPHILS PERCENT MAN 87 % (41-73); TOTAL CELLS COUNTED 100
[2019-08-29 11:11] LABS: Appearance, Urine Clear (Clear); Bilirubin, Urine 1+ (Neg); Color, Urine Yellow (P-Yellow)
[2019-08-29 11:15] LABS: Bacteria Rare /hpf; Squamous Epithelial Cells Rare /hpf (Few)
[2019-08-29 11:20] LABS: Albumin, Blood 2.4 g/dL (3.4-5.0); Albumin/Globulin Ratio 0.4 (0.8-1.8); Bilirubin, Total 2.4 mg/dL (0.1-1.0); Bun/Creatinine Ratio 66.3 (12.0-20.0); Calcium, Blood 8.8 mg/dL (8.5-10.1); Globulin, Blood 5.5 g/dL (2.2-4.0); Total Protein, Blood 7.9 g/dL (6.4-8.2)
[2019-08-29 11:24] LABS: U Amphetamine Screen DETECTED; U Barbituate Screen Not Detected; U Benzodiazapine Screen Not Detected; U Buprenorphine Screen Not Detected; U Cannabinoids Screen Not Detected; U Cocaine Screen Not Detected; U Methadone Screen Not Detected; U Methamphetamine Screen DETECTED; U Opiates Screen Not Detected; U Oxycodone Screen Not Detected; U Phencyclidine Screen Not Detected; U Propoxyphene Screen Not Detected
[2019-08-29 11:40] LABS: Creatine Kinase MB 76.8 ng/mL (0.0-3.6); Creatine Kinase MB Index 7.7 (0.0-4.0)
[2019-08-29 14:13] LABS: Phosphorus, Blood 8.1 mg/dL (2.5-4.9); Uric Acid, Blood 20.1 mg/dL (3.5-7.2)
[2019-08-29 16:55] LABS: Albumin, Blood 1.8 g/dL (3.4-5.0); Albumin/Globulin Ratio 0.5 (0.8-1.8); Bilirubin, Total 1.8 mg/dL (0.1-1.0); Bun/Creatinine Ratio 69.1 (12.0-20.0); Calcium, Blood 7.6 mg/dL (8.5-10.1); Creatinine, Blood 2.46 mg/dL (0.60-1.20); Globulin, Blood 3.9 g/dL (2.2-4.0); Potassium, Blood 2.6 mmol/L (3.5-5.5)
[2019-08-29 17:01] LABS: Total Protein, Blood 5.7 g/dL (6.4-8.2)
--- NOTE | 2019-08-29 18:47 | NUR ---
iNITIAL ASSESSMENT Pt A&O times 3, cooperative confused of location and easily reorient. Pt following simple commands, follows light from side to side with eyes. Hypothermic with blankets in place and warming procedures follwed. VSS, palp pulses in bilat UE and weak palp pulses in bilat LE, no edema. 2.5 liters in total given on admit. PIVs in place and infusing bannana bag and IVF. 40 of K given IV. Zosyn given. RA with sats WNL and no s/s of SOB, claer and dim bilat with weak non productive cough. Loose brown stool on admit with no c/o n/v, NPO. Q6 hour lactulose enemas. Extremely excoriated skin in the edgar area, coccyx and lower ABD bilat red, no drainage, MRSA swabbed, cleaned with pics in chart. stage 1 decub on coccyx with mepilex applied Will cont to monitor MRSA swabbed in throat, nares and wound
--- NOTE | 2019-08-29 18:55 | NUR ---
PT UPDATE SBP in the 180s and 190s MD advised and PRN labetolol ordered and given.
[2019-08-29 19:40] LABS: PCO2 Arterial 25.3 mmHg (35-45); PO2 Arterial 103 mmHg (80-100); pH Blood Arterial 7.36 (7.35-7.45)
--- NOTE | 2019-08-29 20:25 | NUR ---
BEGIN SHIFT TOOK REPORT FROM CARROL STAUFFER. PT APPEARS IN GOOD SPIRITS, VSS, NO C/O PAIN. SKIN EXAMINED WITH ASSISTANCE. DRAINAGE NOTED FROM EXCORIATED PERIANAL AREA, COVERED WITH APPROPRIATE OINTMENT. KCL, NS INFUSING IV APPROPRIATELY. PT REQUESTS FOR ICE CHIPS, OTHERWISE CALM AND COOPERATIVE.
[2019-08-30 03:01] LABS: Adenovirus F 40/41 Not Detected (NOT DETECT); Astrovirus Not Detected (NOT DETECT); Campylobacter Sp Not Detected (NOT DETECT); Cryptosporidium Not Detected (NOT DETECT); Cyclospora Cayetanensis Not Detected (NOT DETECT); E. Coli O157 Not Detected (NOT DETECT); Entamoeba Histolytica Not Detected (NOT DETECT); Enteroaggregative E. coli-EAEC Not Detected (NOT DETECT); Enteropathogenic E. coli-EPEC Detected (NOT DETECT); Enterotoxigenic E. coli-ETEC Not Detected (NOT DETECT); Giardia Lamblia Not Detected (NOT DETECT); Norovirus GI/GII Not Detected (NOT DETECT); Plesiomonas Shigelloides Not Detected (NOT DETECT); Rotavirus A Not Detected (NOT DETECT); Salmonella Sp Not Detected (NOT DETECT); Sapovirus Not Detected (NOT DETECT); Shiga Toxin-prod E. coli-STEC Not Detected (NOT DETECT); Shigella/Enteroin E. coli-EIEC Not Detected (NOT DETECT); Vibrio Cholerae Not Detected (NOT DETECT); Vibrio Sp Not Detected (NOT DETECT); Yersinia Enterocolitica Not Detected (NOT DETECT)
[2019-08-30 03:20] LABS: Hematocrit 34.6 % (37.0-53.0); Hemoglobin 12.1 g/dL (13.5-17.5); Mean Corpuscular HGB 32.4 pg (26.0-34.0); Mean Corpuscular Volume 93 fL (80-100); Mean Platelet Volume 10.4 fL (9.1-12.4); Platelet Count 364 K/mm3 (150-400); RDW Coefficient Variation 14.4 % (11.7-14.2); RDW Standard Deviation 47.8 fL (35.1-46.3); Red Blood Cell Count 3.73 M/mm3 (4.30-5.90); White Blood Cell Count 19.46 K/mm3 (4.00-11.30)
[2019-08-30 03:34] LABS: International Normalized Ratio 1.26; Prothrombin Time Results 13.1 Sec (9.7-11.5)
[2019-08-30 03:43] LABS: Alanine Aminotransfer (ALT/SGP 74 U/L (12-78); Albumin, Blood 1.8 g/dL (3.4-5.0); Albumin/Globulin Ratio 0.4 (0.8-1.8); Alk Phos 207 U/L (50-136); Anion Gap 14 mmol/L (6-16); Aspartate Aminotrans (AST/SGOT 90 U/L (12-37); Bilirubin, Total 1.7 mg/dL (0.1-1.0); Blood Urea Nitrogen 149 mg/dL (8-24); Bun/Creatinine Ratio 68.7 (12.0-20.0); CO2, Blood 16 mmol/L (21-32); CPK Creatine Kinase 731 U/L (39-308); Calcium, Blood 7.6 mg/dL (8.5-10.1); Chloride, Blood 107 mmol/L (98-108); Creatinine, Blood 2.17 mg/dL (0.60-1.20); Glomerular Filtration Rate 33 (60-); Glucose, Blood 87 mg/dL (70-99); Magnesium, Blood 1.7 mg/dL (1.6-2.4); Phosphorus, Blood 5.6 mg/dL (2.5-4.9); Sodium, Blood 137 mmol/L (136-145); Total Protein, Blood 5.8 g/dL (6.4-8.2); Uric Acid, Blood 14.7 mg/dL (3.5-7.2); Vancomycin, Random 17.9 ug/mL
[2019-08-30 05:22] LABS: BAND PERCENT MAN 13 % (0-8); BASOPHILS PERCENT MAN 0 % (0-2); EOSINOPHILS PERCENT MAN 0 % (0-6); LYMPHOCYTES ABSOLUTE MAN 0.19 K/mm3 (0.84-5.20); LYMPHOCYTES PERCENT MAN 1 % (21-46); MONOCYTES ABSOLUTE MAN 0.77 K/mm3 (0.16-1.47); MONOCYTES PERCENT MAN 4 % (4-13); MYELOCYTE ABSOLUTE MAN 0.19 K/mm3 (0.00-0.00); MYELOCYTE PERCENT MAN 1 % (0-0); NEUTROPHILS ABSOLUTE MAN 18.29 K/mm3 (1.96-9.15); SEG NEUTROPHILS PERCENT MAN 81 % (41-73); TOTAL CELLS COUNTED 100
--- NOTE | 2019-08-30 05:27 | NUR ---
SHIFT SUMMARY PT DID WELL THROUGH NIGHT. VSS, NO C/O PAIN UNLESS CLEANING RITU-AREA. SKIN HEAVILY EXCORIATED, KEPT CLEAN AND COVERED WITH ZINC CALAZIME CREAM. X2 BM, 1 IMMEDIATELY AFTER LACTULOSE ENEMA. STOOL SAMPLE RECOVERED, POSITIVE FOR E. COLI. INFORMED DR. ARNETT OF LABS, IMPROVING MENTAL STATUS, DECIDED TO HOLD 06:00 LACTULOSE DOSE. AMMONIA IMPROVED TO 37 (FROM 104.) CIWA INITIATED R/T INCREASED ACTIVITY, REMAINS BELOW 8. PT. CONVERSATIONAL, FREQUENTLY REQUESTING ICE CHIPS, MILK SHAKE, AND PEPSI. ELECTROLYTE REPLACEMENT ORDERED, KCL STARTED, STILL WAITING FOR CALCIUM AT THIS TIME. WILL CONTINUE TO MONITOR.
--- NOTE | 2019-08-30 08:30 | NUR ---
DR. HERRING AT BEDSIDE, VERBAL ORDER TO ADVANCE DIET, CHANGED TO MEDICAL STATUS, NO TELE. DROWSY BUT AROUSABLE TO SPEECH, FOLLOWS DIRECTIONS. NS INFUSING AT 150 ML/HR. KAPOOR DRAINING CLEAR YELLOW URINE. AFEBRILE, VSS.
--- NOTE | 2019-08-30 09:31 | NUR ---
PATIENT SPEECH DIFFICULT TO UNDERSTAND D/T IMPAIRED DENTITION. ON ASPIRATION PRECAUTIONS. BEDSIDE SWALLOW EVAL COMPLETED, PATIENT SAFE FOR LIQUIDS, NO SPEECH EVAL REQUIRED. ALSO, IS EXPERIENCING VISUAL IMPAIRMENT HE DOES NOT HAVE GLASSES WITH HIM AT THIS TIME.
--- NOTE | 2019-08-30 11:30 | NUR ---
PATIENT BREATH SOUNDS DIM THROUGHOUT, TIGHT, POOR AIR MOVEMENT. SPOKE TO DR. HERRING BY PHONE, REVEIVED TELEPHONE ORDER BD PROTOCOL. NOTIFIED SUZANNA WITH RT, WILL GIVE TREATMENT LIAT.
--- NOTE | 2019-08-30 16:31 | NUR ---
IV ZOSYN STARTED LATE, FINISHED AT 1530. NEXT DOSE DUE AT 1600. SPOKE TO PHARMACIST, WHO STATED TO HOLD 1600 DOSE UNTIL 1800, THEN GIVE ADDITIONAL DOSES AT SCHEDULED.
--- NOTE | 2019-08-30 16:33 | NUR ---
PATIENT SLEEPING, AROUSES TO SPEECH. LUNG SOUNDS CLEARER THAN EARLIER, CAN HEAR GOOD AIR MOVEMENT THROUGHOUT. DENIES PAIN, VSS, AFEBRILE. BED ASSIGNMENT RECIEVED ON MEDICAL FLOOR.
--- NOTE | 2019-08-30 17:05 | NUR ---
NOTIFIED OF MEDICAL FLOOR BED BY Carlos Eduardo CARLISLE RN. REPORT GIVEN TO ROSMERY BRANHAM. ALL PATIENT BELONGINGS IN ROOM GATHERED; PATIENT NOTIFIED THAT HIS W/C WAS NOT FOUND IN ED, BUT WAS PICKED UP BY HIS FRIENDS. PATIENT TRANSPORTED TO ROOM 308 BY Nicho REHMAN.
--- NOTE | 2019-08-30 17:57 | NUR ---
PT ARRIVED ON THE FLOOR FROM THE ICU AROUND 5PM THIS AFTERNOON. PT TRANSFERED TO THE BED BY SLIDING. PT ALERT WITH GARBLED, MUMBLED SPEECH. PT HAS KAPOOR CATHETER AND RECTAL TUBE IN PLACE. CALL LIGHT IN REACH, WILL CONTINUE TO MONITOR.
[2019-08-31 05:15] LABS: Hematocrit 32.2 % (37.0-53.0); Hemoglobin 11.1 g/dL (13.5-17.5); Mean Corpuscular HGB 33.1 pg (26.0-34.0); Mean Corpuscular HGB Conc 34.5 g/dL (31.5-36.5); Platelet Count 313 K/mm3 (150-400); RDW Coefficient Variation 14.8 % (11.7-14.2); RDW Standard Deviation 51.5 fL (35.1-46.3); Red Blood Cell Count 3.35 M/mm3 (4.30-5.90); White Blood Cell Count 11.83 K/mm3 (4.00-11.30)
[2019-08-31 05:16] LABS: Mean Corpuscular Volume 96 fL (80-100)
[2019-08-31 05:42] LABS: Anion Gap 11 mmol/L (6-16); Blood Urea Nitrogen 97 mg/dL (8-24); Bun/Creatinine Ratio 57.1 (12.0-20.0); CO2, Blood 19 mmol/L (21-32); Calcium, Blood 7.9 mg/dL (8.5-10.1); Chloride, Blood 110 mmol/L (98-108); Glomerular Filtration Rate 44 (60-); Glucose, Blood 111 mg/dL (70-99); Sodium, Blood 140 mmol/L (136-145); Vancomycin, Random 18.4 ug/mL
[2019-08-31 05:46] LABS: Potassium, Blood 2.4 mmol/L (3.5-5.5)
--- NOTE | 2019-08-31 05:57 | NUR ---
GI: PATIENT PULLED OUT RECTAL TBE, IT WAS FOUND LAYING ON THE BEDSIDE TABLE FULLY INFLATTED. THER IS BLOOD ON RECTAL AREA AND TUBE BUT NO ACTIVE BLEEDING SINCE TUBE WAS PULLED. PATIENT DENIES PAIN BUT REPORTS NAUSEA. CIWA SCORE AT THIS TIME WAS 9, IV ATIVAN 1MG WAS GIVEN. ZOFRAN WAS GIVEN FOR NAUSEA. DR BYRD WAS NOTIFIED, NO NEW ORDERS OBTAINED.
--- NOTE | 2019-08-31 06:10 | NUR ---
SHIFT SUMMARY: PATIENT HAD A LARGE LIQUID BROWN BM AFTER RECTAL TUBE WAS PULLED, NO BLEEDING OBSERVED. RECTUM IS EXCORIATED, BARRIER CREAM IS APPLIED, GROIN IS ALSO EXCORIATED. KAPOOR REMAINS IN PLACE. PATIENT HAD GOOD EFFECT FROM IV ATIVAN, LAST CIWA WAS 0, DOWN FROM 9. ALSO HAD GOOD EFFECT FRON ZOFRAN, NO VOMITING AND PATIENT IS SLEEPING AT THIS TIME. POTASIUM IS CRITICAL AT 2.[address] TENORIO IS CALLED AND MESSAGE WAS LEFT FOR RETURN CALL.
--- NOTE | 2019-08-31 06:41 | NUR ---
CRITICAL LAB RESULTS: ODERS OBTAINED FOR POTASIUM 20 MEQ IV X1 NOW WERE OBTAINED.
--- NOTE | 2019-08-31 15:01 | NUR ---
CIWA 9 1 MG ATIVAN GIVEN FROM CIWA OF 9.
--- NOTE | 2019-08-31 17:20 | NUR ---
SHIFT SUMMARY PT IN STABLE CONDITION. CONTINUES TO BE DISORIENTED WITH GARBLED SPEECH. UNCLEAR OF BASELINE. PT RECIEVED BED BATH, SKIN CARE, & DRESSING CHANGES THIS SHIFT. RITU AREA VERY PAINFUL TO TOUCH. PT RECIEVED 60MEQ K THIS SHIFT. ANTIBIOTICS PER EMAR. PT TOLERATING WELL. PT HAS SIGNIFICANT EXP WHEEZES WITH MOVEMENTS. PT STATES NO NEEDS AT THIS TIME. DENIES PAIN AT THIS TIME. STATES LITTLE NAUSEA. CIWAS 9 OR LESS. PT TREATED WITH 1MG PO ATIVAN ONCE THIS SHIFT. PT TACHYCARDIC, BUT HAS BEEN RUNNING THAT WAY THIS VISIT. OTHER VITALS STABLE. NO OTHER CHANGES IN ASSESSMENT AT THIS TIME.
[2019-09-01 04:50] LABS: Bun/Creatinine Ratio 50.8 (12.0-20.0); Calcium, Blood 7.9 mg/dL (8.5-10.1); Creatinine, Blood 1.32 mg/dL (0.60-1.20); Potassium, Blood 2.6 mmol/L (3.5-5.5)
--- NOTE | 2019-09-01 06:14 | NUR ---
SHIFT SUMMARY PT HAS APPEARED TO REST COMFORTABLY THROUGHOUT THE SHIFT. WE HAVE REPOSITIONED OR PT HAS MANAGED TO CHANGE POSITIONS SELF EVERY 2 HOURS AND KEPT HIS SKIN CLEAN AND DRY, BUT HE HAS SOME SEVERE EXCORIATION IN THE RITU AREA. HE FOLLOWS DIRECTIONS AND CAN ANSWER YES/NO QUESTIONS, BUT HAS DIFFICULTY COMMUNICATING VERBALLY WITH STAFF. WILL CONTINUE TO MONITOR.
--- NOTE | 2019-09-01 10:45 | NUR ---
RECTAL TUBE/STOOL SAMPLES TIMBER TREATMENT PLANT OPERATOR CALLED DR. HERRING FOR ORDER OF RECTAL TUBE DUE TO PT ESCORIATED SKIN WHICH HAS WORSENED OVERNIGHT DUE TO LIQUID STOOLS. PT STOOLS ARE BLACK & SLIGHTLY JELLY, SO ORDER FOR OCCULT STOOL SAMPLE & RULE OUT C.DIFF ALSO ORDERED PER DR. HERRING. SILVADINE APPLIED TO OPEN AREAS & BARRIER CREAM APPLIED TO INTACT SKIN THROUGHOUT RITU & BUTTOCK AREA. PT TOLERATED PROCEDURE WELL. IMMEDIATE OUTPUT SEEN IN TUBE. TUBE SECURED IN PLACE. PT EDUCATED ON LEAVING TUBE ALONE & REASON FOR PLACEMENT. WILL CONTINUE TO MONITOR.
[2019-09-01 13:51] LABS: Stool Occult Blood Guaiac 1 Pos (Neg)
--- NOTE | 2019-09-01 17:36 | NUR ---
SHIFT SUMMARY RECTAL TUBE PLACED & DRAINING DARK BROWNISH/BLACK LIQUID STOOL. SKIN AROUND TUBE APPLIED WITH SILVADINE & BARRIER CREAM. OCCULT STOOL POSITIVE. H&H STABLE AT THIS TIME. PT PULLED IV FROM L ARM. IV INTACT. NO BLEEDING/HEMATOMA NOTED. PT CONTINUES TO BE TACHYCARDIC AT 104. OTHER VITALS STABLE. DR. FRANCOIS CALLED & NOTIFIED OF POSITIVE OCCULT STOOL. PT MORE ALERT & MENTATION IMPROVING. SPEECH STILL GARBLED, BUT PT SPEAKING MORE CLEARLY. PT RECIEVED 2 20MEQ KCL IV BAGS & 1 MAG INFUSION. PO K ALSO ADDED. KAPOOR INTACT & DRAINING WELL. NO OTHER CHANGES IN ASSESSMENT AT THIS TIME. WILL CONTINUE TO MONITOR UNTIL TURNOVER IS COMPLETE.
--- NOTE | 2019-09-01 23:56 | NUR ---
ANXIETY/PAIN: PATIENT IS REPORTING BILATERAL FOOT PAIN WITH NUMBNESS AND TINGKING. SCORING A 3 ON CIWA SCALE FOR AGGITAION AND ANXIETY. RECTAL TUBE IS IN PLACE WITH NO LEAKING AT THIS TIME. ATIVAN IS GIVEN FOR ANXIETY, AGGITATION AND PAIN, HEAT THERAPY IS ALSO UTILIZED.
--- NOTE | 2019-09-02 00:22 | NUR ---
PAIN: DR PALOMINO IS NOTIFIED OF NEUROPATHIC FOOT PAIN CAUSING ANXIETY AND AGGITAION. GABAPENTIN 100MG PO TID IS ORDERED.
[2019-09-02 05:05] LABS: Anion Gap 10 mmol/L (6-16); Blood Urea Nitrogen 42 mg/dL (8-24); Bun/Creatinine Ratio 40.4 (12.0-20.0); CO2, Blood 23 mmol/L (21-32); Chloride, Blood 109 mmol/L (98-108); Creatinine, Blood 1.04 mg/dL (0.60-1.20); Glomerular Filtration Rate >60 (60-); Glucose, Blood 88 mg/dL (70-99); Sodium, Blood 142 mmol/L (136-145)
[2019-09-02 05:08] LABS: Magnesium, Blood 1.1 mg/dL (1.6-2.4)
--- NOTE | 2019-09-02 05:40 | NUR ---
CRITICAL LABS: MAG IS 1.1 DR PALOMINO IS NOTIFIED. ORDER FOR MAGNISIUM 2G IV X1 NOW IS OBTAINED.
--- NOTE | 2019-09-02 05:42 | NUR ---
SHIFT SUMMARY: PATIENT HAD GOOD EFFECT FROM ATIVAN. SPEECH HAS IMPROVED LESS GARBLED AND PATIENT IS ABLE TO MAKE NEEDS KNOWN. NO FURTHER LEAKING OBSERVED FROM RECTAL TUBE, WILL CONTINUE TO MONITOR. MAGNESIUM IS INFUSING PER MD ORDER FOPOR MAG LEVEL CRITICAL AT 1.0. BED ALARM IS ON FOR SAFETY.
[2019-09-02 08:30] LABS: Hematocrit 32.5 % (37.0-53.0); Hemoglobin 10.6 g/dL (13.5-17.5)
--- NOTE | 2019-09-02 15:51 | NUR ---
Initial Visit: Pt admitted 4 days ago. Seen by palliative care for symptom managment and advanced care planning. Pt with history of substance abuse and alcoholism. Positive UA for meth this hospitalization. Pt alert, appears to be oriented. His speech is garbled, however, I was able to make out a little of what he was saying in response to my questions. Pt is not sleeping at night. Reports that he has difficulty falling asleep and staying asleep. He has taken 2 doses of gabapentin for neuropathic foot pain - which he reports has not helped so far today. Pt has friends; he is unsure if they know if he is in the hospital. His friends do not have phones or phone numbers. Pt is short of breath; respirations 20+ at time of visit, wheezes evident. This may be a change from this morning and nurse notified for further assessment. Call placed to Dr. Cooper. Report of pain and insomnia. He will place orders for melatonin and later Tylenol if liver ultrasound permits. Updated nursing on conversation with Dr. Cooper and new medications RN can expect to see ordered for symptom management. Palliative to follow for symptoms; additionally discuss advanced care planning when appropriate. Pt appeared exhausted and ill.
--- NOTE | 2019-09-02 17:16 | NUR ---
Shift Summary A/O to self, president, and place. Does not call, but is not impulsive. Pt slept mostly through the day, easily awakens to name. Silvadine and creams applied to groin and buttocks. Rectal tube and loja patent and draining. Bowels continue to be black with a tint of red. Abd US done (see results). Pt states he uses recreational drugs (meth, marijuana, and alcohol) intermittently. Pt c/o 07/23 BLE pain r/t chronic neuropathy, medicated per EMAR. Pt also c/o insomnia, orders in EMAR for this. No other acute changes this shift.
--- NOTE | 2019-09-03 05:02 | NUR ---
SUMMARY: A/OX3 BUT CONFUSED TO DATE AND HAS GARBLED SPEECH MAKING IT DIFFICULT TO UNDERSTAND HIM AT TIMES. HE DOESN'T USE HIS CALL LIGHT BUT ISN'T IMPULSIVE EITHER. BED ALARM STILL ARMED FOR FALL RISK AND SAFETY. KAPOOR IS PATENT AND DRAINING, RECTAL TUBE DRAINING LIQ DARK BROWN/RED TINGED STOOL. BOTH ARE INTACT FOR FURTHER SBD PREVENTION. SILVADEEN CREAM APPLIED TO GROIN AND BUTTOCKS PER RX, NYSTATIN APPLIED TO PANNUS/SKIN FOLDS AND BARRIER CREAM APPLIED TO BUTTOCKS AND PEELING/EXCORIATED AREAS ON LEGS. IV ABX RECIEVED. UNABLE TO COLLECT SPUTUM SPECIMEN D/T POLITICAL ANTHROPOLOGIST COUGH. PT HAD FORCED EXP WHEEZE AT START OF SHIFT BUT IMPROVED T/O NOCTE. SPO2 WNL ON RA AND RESP SHALLOW BUT UNLABORED. PT DENIED PAIN/COMPLAINTS AND SLEPT MOST OF NOCTE. VSS/AFEBRILE, TACHY AT 100'S BPM IS BASELINE. NO ACUTE CHANGES. WCTM AND REPORT TO DAY RN.
[2019-09-03 05:18] LABS: Anion Gap 8 mmol/L (6-16); Blood Urea Nitrogen 25 mg/dL (8-24); Bun/Creatinine Ratio 26.6 (12.0-20.0); CO2, Blood 22 mmol/L (21-32); Calcium, Blood 7.9 mg/dL (8.5-10.1); Chloride, Blood 111 mmol/L (98-108); Creatinine, Blood 0.94 mg/dL (0.60-1.20); Glomerular Filtration Rate >60 (60-); Glucose, Blood 91 mg/dL (70-99); Magnesium, Blood 1.2 mg/dL (1.6-2.4); Sodium, Blood 141 mmol/L (136-145)
--- NOTE | 2019-09-03 08:43 | NUR ---
Physician notified Dr. Cooper notified RE no H&H ordered this morning. Also notified of this RN's decision to hold Heparin. Physician ok'd. Orders received.
[2019-09-03 09:27] LABS: Hematocrit 29.1 % (37.0-53.0); Hemoglobin 9.2 g/dL (13.5-17.5)
--- NOTE | 2019-09-03 15:25 | NUR ---
Physician notified Dr. Cooper notified of RR 31 HR 124 and 93% RA. Also about 300 cc dark red clots in rectal tube bag and about 150-200 on the bed. Orders for stat H&H received. Physician will be in to assess patient.
[2019-09-03 15:51] LABS: Hematocrit 25.4 % (37.0-53.0); Hemoglobin 8.2 g/dL (13.5-17.5)
--- NOTE | 2019-09-03 15:55 | NUR ---
Physician notified Dr. Cooper notified of stat H&H of 8.2. Morning H&H was 9.2. Orders to transfer to PCU.
--- NOTE | 2019-09-03 16:39 | NUR ---
Transferred to U-13 Gave report to CARROL Roque. Pt A/Ox3. 20g LH running WO LR. 20g RAC SL. Rectal tube is out and pt declining reinsertion, Dr. Cooper aware. Belongings, silvadine, and nystatin brought down by RN. Pt c/o dizziness when HOB is elevated and also requesting for warm blankets.
--- NOTE | 2019-09-03 18:21 | NUR ---
SHIFT SUMMARY ASSUMED CARE APPROXIMATELY 1430. PT ALERT AND ORIENTED TO SELF, SITUATION, PLACE, AND FOLLOWING DIRECTIONS. PT FORGETFUL AT TIMES AND WITHDRAWN. VS STABLE. PT DENIES PAIN. PT TRANSFERRED TO PCU DUE TO ACTIVE GI BLEED. FIRST UNIT OF PRBC IS TRANSFUSING. PT EDUCATED ON NEED FOR TRANSFUSION AND PT CONSENTED. PT INCONTINENT OF BOWEL WITH LIQUID MAROON STOOL. ATTENDS IN PLACE. KAPOOR PATENT AND DRAINING. MULTIPLE WOUNDS THROUGHOUT SEE PICTURES AND PREVIOUS ASSESSMENT. WILL CONTINUE TO MONITOR AND REPORT TO ONCOMING RN. CALL LIGHT IN REACH.
--- NOTE | 2019-09-03 20:04 | NUR ---
1930 FIRST UNIT BLOOD INFUSING WITHOUT ISSUE, DENIES PAIN OR NAUSEA, HAPPY AND COOPERATIVE.
[2019-09-04 05:25] LABS: Hematocrit 32.9 % (37.0-53.0); Hemoglobin 10.9 g/dL (13.5-17.5)
--- NOTE | 2019-09-04 05:34 | NUR ---
SHIFT SUMMARY: 58 Y/O OBESE MALE RESTED COMFORTABLY ALL SHIFT, PATIENT RECEIVED TWO UNITS PRBC THIS SHIFT, HG=10.9 THIS AM, THREE BLOODY STOOLS LAST NIGHT NOTED (ENTIRE LINEN AND ATTENDS CHANGED, ALERT AND ORIENTED X 4, ABLE TO FOLLOW ALL SIMPLE VERBAL COMMANDS, PT WAS GIVEN LASIX 40MG AFTER LAST UNIT PRBC (LUNG SOUNDS CLEAR, SLIGHT WHEEZING UPPER LOBES PRIOR WHICH SINCE HAS RESULTED IN LUNG SOUNDS CLEAR THROUGHOUT WITH PATIENT RESTING COMFORTABLY AND IN NO RESPIRATORY DISTRESS), TELEMETRY REFLECTS NSR PER DONTA CLAIMS AUDITOR, DENIES PAIN OR NAUSEA, KAPOOR OUTPUT 1000 ML AFTER LASIX, BED LOW POSITION WITH CALL LIGHT AT SIDE.
[2019-09-04 05:45] LABS: Anion Gap 6 mmol/L (6-16); Blood Urea Nitrogen 20 mg/dL (8-24); Bun/Creatinine Ratio 19.8 (12.0-20.0); CO2, Blood 26 mmol/L (21-32); Chloride, Blood 108 mmol/L (98-108); Creatinine, Blood 1.01 mg/dL (0.60-1.20); Glomerular Filtration Rate >60 (60-); Glucose, Blood 109 mg/dL (70-99); Magnesium, Blood 1.2 mg/dL (1.6-2.4); Potassium, Blood 3.8 mmol/L (3.5-5.5); Sodium, Blood 140 mmol/L (136-145)
--- NOTE | 2019-09-04 08:00 | NUR ---
PT LAYING IN BED AWAKE A/OX3, PLEASANT AND COOPERATIVE WITH CARE, FOLLOWS COMMANDS WELL, STATES HIS PAIN IS OK, SLEEPING WHEN LEFT UNDISTURBED, LUNGS ARE CLEAR DIM T/O, HAS A WET LOOSE COUGH, HRR, TELE IN PLACE RUNNING ST IN THE 120S PER MONITOR, SEE STRIP, EDEMA NOTED TO THIGHS, RITU AREA, SCROTUM, IV SITE X2 PIV, SITES ARE CLEAR AND PATENT, BTX4 ABD ROUND FIRM NONTENDER, VOIDS VIA KAPOOR CATH DRAINING CLEAR YELLOW URINE, SKIN HAS MUTIPLE WOUNDS, DRESSINGS IN PLACE EXCEPT FOR RITU AREA, MOVES UPPER EXT WELL, CAN MOVE LEGS BUT VERY WEAK, AND REPORTS HE CAN'T STAND, DOES HELP TURN HIMSELF, SHRUTHI, CALL LIGHT IN REACH.
--- NOTE | 2019-09-04 12:31 | NUR ---
PT HAD A LOOSE MAROON AND MARK RED STOOL, INCONT, MED SIZE, DR. HERRING NOTIFIED, HAD H&H DRAWN. PT DOING OK, VS STABLE, DOES HAVE A 100.0 TEMP. CALL LIGHT IN REACH.
[2019-09-04 12:35] LABS: Hematocrit 36.3 % (37.0-53.0); Hemoglobin 11.7 g/dL (13.5-17.5)
--- NOTE | 2019-09-04 14:48 | NUR ---
PT HAD ANOTHER LARGE LIQUID STOOL WITH MARK BLOOD, AND MAROON COLORED STOOL. NOTIFIED DR. HERRING, HE ORDERED H&H Q6HR. NEXT WILL BE AT 1800. PT HAD A BATH, LINEN CHANGE, AN ENSURE WAS GIVEN HE ISN'T EATING WELL. HE WILL TAKE A NAP A THIS TIME, WILL CONTINUE TO MONITOR. CALL LIGHT IN REACH.
[2019-09-04 18:27] LABS: Hematocrit 28.5 % (37.0-53.0); Hemoglobin 9.3 g/dL (13.5-17.5)
--- NOTE | 2019-09-04 19:29 | NUR ---
pt has a temp this evening of 101.0. heart rate is down to 123 this evening. he likes laying flat in bed for his back, but breaths easier sitting up more. his resp increased to 20, and was sating 89 % on r/a, put him on 2 liters o2 via n/c. no further changes this shift. call light in reach.
--- NOTE | 2019-09-04 19:31 | NUR ---
ASSSUMED CARE RECEIVED REPORT FROM CARROL DIETZ. PT IS LYING FLAT IN BED ASLEEP. PT HAS ATTENDS, DRY AND IN PLACE, AND A KAPOOR PATENT HANGING TO GRAVITY. LR AT 150ML/HR, AND NS TKO. BED IS LOW AND LOCKED, CALL LIGHT WITHIN REACH.
--- NOTE | 2019-09-04 23:27 | NUR ---
DR COPPOLA IN ROOM TO SEE PATIENT. RECOMMENDS DOING BOTH EGD AND COLONOSCOPY; PLANS TO DO EGD TOMORROW EVENING.
[2019-09-05 00:57] LABS: Hematocrit 29.1 % (37.0-53.0); Hemoglobin 9.3 g/dL (13.5-17.5)
--- NOTE | 2019-09-05 05:44 | NUR ---
SHIFT SUMMARY PT SLEPT FOR MAJORITY OF NIGHT. HE IS BASELINE PSYCHOLOGICALLY DELAYED, BUT MENTATION HAS BEEN IMPROVING PER DOCTOR'S/NURSE'S REPORT. HE STILL IS SLIGHTLY CONFUSED, AND IS HARD TO UNDERSTAND DUE TO GARBLED SPEECH. HE IS ON 1L NC AND SAT'S MID 90'S. HE IS IN SINUS TACH. PT IS INCONTINENT AND HAD A LARGE UNFORMED BM, THAT WAS BROWN (NOT MAROON OR RED). KAPOOR BAG IS PATENT AND DRAINED URINE, ADEQUATE AMMOUNT (SEE I/O'S). HIS RITU-AREA IS EXTREEMELY EXCORIATED AND IRRITATED, NYSTATIN POWDER, AND SILVADENE APPLIED, ALONG WITH MEPIPLEX DRESSING CHANGES. HE HAS NUMEROUS WOUNDS WITH CDI DRESSINGS. HE HAS DIFFICULTY COMMUNICATING AND DOES NOT KNOW TO CALL NURSE WHEN SOILING HIMSELF. ABDON SAW PT TODAY, AND WANTS TO ATTEMPT A EGD 09/05 EVENING, AND THEN IN A FEW DAYS ATTEMPT TO DO A COLONOSCOPY. PT SAID HE UNDERSTOOD AND DIDN'T HAVE ANY QUESTIONS, BUT UNSURE IF HE TRULEY UNDERSTANDS ISSUES. PT HAS HISTORY OF MRSA IN WOUNDS AND IS IN CONTACT PRECAUTIONS. BED IS LOW AND LOCKED. PT DENIES PAIN OR DISCOMFORT FOR MAJORITY OF NIGHT, BUT WHEN CLEANING UP - HE WAS WITHDRAWING HIPS TO PAIN. CALL LIGHT WITHIN REACH.
[2019-09-05 06:58] LABS: Hematocrit 27.6 % (37.0-53.0); Hemoglobin 8.9 g/dL (13.5-17.5); Mean Corpuscular HGB 31.6 pg (26.0-34.0); Mean Corpuscular HGB Conc 32.2 g/dL (31.5-36.5); Mean Corpuscular Volume 98 fL (80-100); Mean Platelet Volume 10.8 fL (9.1-12.4); Platelet Count 193 K/mm3 (150-400); RDW Coefficient Variation 16.6 % (11.7-14.2); Red Blood Cell Count 2.82 M/mm3 (4.30-5.90); White Blood Cell Count 8.81 K/mm3 (4.00-11.30)
[2019-09-05 07:19] LABS: Anion Gap 4 mmol/L (6-16); Blood Urea Nitrogen 14 mg/dL (8-24); Bun/Creatinine Ratio 16.2 (12.0-20.0); CO2, Blood 26 mmol/L (21-32); Calcium, Blood 7.6 mg/dL (8.5-10.1); Chloride, Blood 108 mmol/L (98-108); Creatinine, Blood 0.87 mg/dL (0.60-1.20); Glomerular Filtration Rate >60 (60-); Glucose, Blood 84 mg/dL (70-99); Potassium, Blood 3.3 mmol/L (3.5-5.5); Sodium, Blood 138 mmol/L (136-145)
--- NOTE | 2019-09-05 07:30 | NUR ---
REC'D BEDSIDE FROM CISCO BRANHAM AND AM NOW ASSUMING CARE OF THIS PT.
[2019-09-05 07:32] LABS: Magnesium, Blood 1.1 mg/dL (1.6-2.4)
--- NOTE | 2019-09-05 07:57 | NUR ---
DR FRANCOIS HERE TO ASSES PT. SEE NEW ORDERS.
--- NOTE | 2019-09-05 11:36 | NUR ---
Late Entry: Pt seen and assessed last night, 09/04 @ 1600 for symptoms. He reports that he has not been sleeping well, reports 9.5/10 pain level. States that he has extreme pain in his feet and legs due to neuropathy. He states that it is distracting and does not allow him to rest. He is able to communicate better at this time. His speech is garbled, but less so than last time. There are times that are instructions are given to him to slow his speech and try to speak more clearly. He does follow directions. He makes his needs known to nurses, but does not appropriately use the call light. Pt having significant anxiety related to his illness and states that he has never been so sick before in his life. He reports feelings of hopelessness, fear, distress. His feet hurt and he is in constant pain: even if he is able to sleep for a period of time, he wakes up related to foot pain. Pt is now having a fever and nurse will give Tylenol. He has GI consult later. With pt's difficulties with low mood, continued neuropathy, anxiety, consider nortriptyline or Cymbalta to help with symptoms; if appropriate. Pt expresses desire to be more comfortable than he is currently. Will follow up with pt.
[2019-09-05 12:47] LABS: Hematocrit 29.3 % (37.0-53.0); Hemoglobin 9.3 g/dL (13.5-17.5)
--- NOTE | 2019-09-05 14:04 | NUR ---
PT UPDATE: ROUNDING ON PT TO FIND PT WAS INCONTINENT OF BOWEL. WHEN ASKING PT IF HE WAS AWARE, PT REPORTS, "SOMETIMES IT JUST HAPPENS WHEN I'M SLEEPING AND I DON'T KNOW. I DIDN'T CALL YOU BECAUSE I WASN'T SURE IF I WAS DONE YET." EDUCATED PT TO CALL IF HE IS ABLE TO PRIOR AND HOW HAVE STOOL SITTING ON THE SKIN AFFECTS SKIN INTEGRITY/WOUND HEALING. RITU AREA/CATH CARE DONE. MEDICATED CREAM/NYSTATION APPLIED. LINENS/GOWN/ATTENDS CHANGED. DRSG TO LT FLANK AREA CHANGED. REMINDED PT THAT A SPUTUM SPECIMEN IS STILL NEEDED. AT THIS TIME, PT HAS A WET, NON-PRODUCTIVE COUGH. PT MADE NPO AT THIS TIME FOR EXPECTED EGD THIS EVENING.
--- NOTE | 2019-09-05 16:23 | NUR ---
EGD: PT BEING TAKEN PER LEILA TO HAVE EGD DONE.
--- NOTE | 2019-09-05 17:38 | NUR ---
09/05/19 1731 Berhane Chaudhry See Anesthesia record MONITOR INTACT WITH CONTINUOUS PULSE OXIMETRY AND INTERMITTENT BP. Patient to ENDO 1History, Chart, Medications and Allergies reviewed before start of procedure.O2 VIA N/C INTACT THROUGHOUT SEDATION/PROCEDURE.
--- NOTE | 2019-09-05 18:10 | NUR ---
PT RETURNED FROM DAY SURGERY. POST EGD. NO SIGNS OF GASTRIC BLEEDING. VSS AT THIS TIME. PT REMAINS DROWSY. CALL LIGHT WITHIN REACH. HOLDING PO POTASSIUM R/T DROWSINESS.
--- NOTE | 2019-09-05 19:00 | NUR ---
REPORTED OFF TO CARROL WELSH WHOM WILL NOW BE ASSUMING CARE OF THIS PT.
[2019-09-05 19:42] LABS: Hematocrit 28.1 % (37.0-53.0); Hemoglobin 9.1 g/dL (13.5-17.5)
[2019-09-06 01:25] LABS: Hematocrit 27.9 % (37.0-53.0)
--- NOTE | 2019-09-06 06:17 | NUR ---
SHIFT SUMMARY ASSUMED CARE OF PT AT 1900 HRS W PT AWAKE AND ALERT LYING IN BED, BUT SHOWING SIGNS OF AND REPORTING SIGNIFICANT PAIN. PER REPORT PT WAS RECENTLY ARRIVED ON UNIT, AND ENDOSCOPY REGISTERED NURSE PUMP WAS IN PROCESS OF BEING SET UP. PT ORIENTED TO FUNCTIONING ENDOSCOPY REGISTERED NURSE PUMP BY 2000 HRS, AND VERBALIZED RELIEF SOON AFTER. PT'S BP REMAINED ELEVATED T/O SHIFT, CONSISTENT W/ HIS HX WHILE HOSPITALIZED. ALL OTHER VSS. PATIENT MEDICATED AND TREATED PER MD ORDER AND UNIT PROTOCOL, WITH ALL WOUND DRESSINGS DRY AND INTACT. WILL CONTINUE TO MONITOR UNTIL PASSING CARE AND REPORT TO ONCOMING SHIFT. BED LOW AND LOCKED, CALL LIGHT W/IN REACH, NO ISSUES AT THIS TIME.
[2019-09-06 06:18] LABS: Hematocrit 26.5 % (37.0-53.0); Hemoglobin 8.5 g/dL (13.5-17.5); Mean Corpuscular HGB 31.7 pg (26.0-34.0); Mean Corpuscular HGB Conc 32.1 g/dL (31.5-36.5); Mean Corpuscular Volume 99 fL (80-100); Mean Platelet Volume 10.6 fL (9.1-12.4); Platelet Count 227 K/mm3 (150-400); RDW Coefficient Variation 16.2 % (11.7-14.2); RDW Standard Deviation 57.9 fL (35.1-46.3); Red Blood Cell Count 2.68 M/mm3 (4.30-5.90)
[2019-09-06 06:33] LABS: Anion Gap 5 mmol/L (6-16); Blood Urea Nitrogen 9 mg/dL (8-24); Bun/Creatinine Ratio 11.9 (12.0-20.0); CO2, Blood 25 mmol/L (21-32); Calcium, Blood 7.4 mg/dL (8.5-10.1); Chloride, Blood 106 mmol/L (98-108); Creatinine, Blood 0.76 mg/dL (0.60-1.20); Glomerular Filtration Rate >60 (60-); Glucose, Blood 67 mg/dL (70-99); Potassium, Blood 3.6 mmol/L (3.5-5.5); Sodium, Blood 136 mmol/L (136-145)
--- NOTE | 2019-09-06 07:41 | NUR ---
SHIFT SUMMARY ASSUMED CARE OF PT AT 1900, PT AWAKE LYING IN BED W/ NO SIGNS OF DISTRESS. MEDICATED AND TREATED PT PER MD ORDER AND UNIT PROTOCOL W/ NO ISSUES. PT IS INCONTINENT OF BOWEL AND STATES HE DOES NOT KNOW WHEN HE HAS PASSED FECES. WOUNDS AND REDNESS TO GROIN AND RITU-AREA TREATED WITH BOTH ANTIBIOTIC CREAM AND ANTIFUNGAL POWDER. ALL WOUND DRESSINGS REMAINED INTACT AND DRY. PASSED CARE AND REPORT TO ONCOMING SHIFT, BED LOCKED AND LOW, CALL LIGHT W/IN REACH
--- NOTE | 2019-09-06 16:53 | NUR ---
PATIENT IS ALERT AND ORIENTED AND COOPERATIVE WITH CARE. HE IS SPEAKING CLEARLY TODAY. HE MAKES HIS NEEDS KNOWN. HE STARTED A CARDIAC DIET TODAY. HE IS INCONTINENT OF STOOL. HIS STOOL IS LOOSE AND MAROON. LR WAS DC'D SINCE HE IS DRINKING ON HIS OWN. HE HAD AN EPISODE OF HIGH BLOOD PRESSURE THIS AFTERNOON. RN CALLED DR. GONZALES TO SEE IF HE WANTED THE IV FLUIDS DC'D TO LOWER HIS BP, HE GAVE THE ORDER TO DC THE LR. THE PATIENT'S DRESSING ARE C/D/I AND WERE CHANGED TODAY. WILL CONTINUE TO MONITOR.
[2019-09-07 03:43] LABS: Hematocrit 25.1 % (37.0-53.0); Mean Corpuscular HGB 31.5 pg (26.0-34.0); Mean Corpuscular HGB Conc 31.9 g/dL (31.5-36.5); Mean Corpuscular Volume 99 fL (80-100); Mean Platelet Volume 10.7 fL (9.1-12.4); Platelet Count 267 K/mm3 (150-400); RDW Coefficient Variation 15.4 % (11.7-14.2); RDW Standard Deviation 55.7 fL (35.1-46.3); Red Blood Cell Count 2.54 M/mm3 (4.30-5.90); White Blood Cell Count 8.56 K/mm3 (4.00-11.30)
[2019-09-07 03:58] LABS: Anion Gap 5 mmol/L (6-16); Blood Urea Nitrogen 12 mg/dL (8-24); Bun/Creatinine Ratio 13.6 (12.0-20.0); CO2, Blood 27 mmol/L (21-32); Calcium, Blood 7.2 mg/dL (8.5-10.1); Chloride, Blood 106 mmol/L (98-108); Creatinine, Blood 0.88 mg/dL (0.60-1.20); Glomerular Filtration Rate >60 (60-); Glucose, Blood 144 mg/dL (70-99); Potassium, Blood 3.4 mmol/L (3.5-5.5); Sodium, Blood 138 mmol/L (136-145)
[2019-09-07 04:16] LABS: Magnesium, Blood 1.1 mg/dL (1.6-2.4)
--- NOTE | 2019-09-07 07:33 | NUR ---
SHIFT SUMMARY ASSUMED CARE OF PT AT 1900 HRS, PT AWAKE AND ALERT IN BED, NO SIGNS OF DISTRESS. MEDICATED AND TREATED PT PER UNIT PROTOCOL AND MD ORDER, INCLUDING TURN/REPOSITION Q2HR, AND FREQUENT INCONTINENCE CHECKS. PT WAS INCONTINENT OF BLOODY LOOSE STOOL 4 TIMES THIS SHIFT, EACH TIME WIPED CLEAN AND DRY, AND NEW APPLICATIONS OF SULFA CREAM AND NYSTANTIN POWDER. PT'S O2 WAS TITRATED IN RESPONSE TO SATURATION LEVELS BETWEEN 0-4 L IN NO APPARENT PATTERN, TO MAINTAIN SATURATION AT OR ABOVE 92%. PT'S URINE FROM CATHETER WAS CLEAR AND OSBALDO-YELLOW. AROUND MIDNGHT PT C/O PRESSURE/PAIN/BLOATING IN ABD; MD ORDERED MEDICATION PROVIDED RELIEF. OTHERWISE, NO ISSUES. PASSED CARE AND REPORT TO ONCOMING SHIFT W/ PT'S BED LOCKED AND LOW, AND CALL LIGHT IN REACH.
--- NOTE | 2019-09-07 08:00 | NUR ---
pt pleasant coop talkative here with gi bleed. pain in foot r/t gout per pt. 07/23, wants down to 5 if can. states gabapentin helps most. med per emar. h/r. reg, no murmer noted. per tele s/tach at 109. lungs wheezy t/o with dim bases. on r.a. at this time. resp shallow, at 20/min. bt x4 last bm this am.some dark bloody stool noted. wheel chair at baseline. homeless. bed in low position, call lite in reach, call approp
--- NOTE | 2019-09-07 13:05 | NUR ---
SPOKE TO DR GONZALES PT BP 166/97 P 114, PT BELIEVES PROB FROM PAIN IN ABD. MEDICATED FOR PAIN. WILL MONITOR. PT RESP 28-30. LUNGS TIGHT WHEEZY DIM BASES, DOES NOT SOUND MUCH AIR MOVEMENT. ORDERS FOR BP PROTOCOL. CALLED RT TO SEE LIAT. ON 2L 02 AND SAT 92% AT THIS TIME.
[2019-09-07 16:08] LABS: Hemoglobin 8.2 g/dL (13.5-17.5)
--- NOTE | 2019-09-07 17:18 | NUR ---
called dr farnsworth re [facility]. orders pending
--- NOTE | 2019-09-07 17:59 | NUR ---
PT PLEASANT TODAY. GOT HIM SET UP ON BREATHING TX. DOING BETTER. LUNGS OPENED UP. HAD SOMEWHAT PANIC ATTACK THIS AM. PRESENTS R/T SOB FEELING. BREATHING TX IMPROVED PROBLEM. STATES BETTER TODAY. HAD MORE BM THIS JUSTIN. LOOSE, BUT BROWN/GREEN THIS JUSTIN. NO BLOOD RED OR BLACK SEEN. ORDERS PENDING FOR DIFFERENT MED FOR RED RITU AREA EXCORIATED SKIN. NO OTHER CONCERNS AT THIS TIME. BED IN LOW POSITION, CALL LITE IN [facility], CALLS APPROP.
[2019-09-08 03:56] LABS: Anion Gap 6 mmol/L (6-16); Blood Urea Nitrogen 12 mg/dL (8-24); Bun/Creatinine Ratio 15.6 (12.0-20.0); CO2, Blood 28 mmol/L (21-32); Calcium, Blood 7.7 mg/dL (8.5-10.1); Chloride, Blood 106 mmol/L (98-108); Creatinine, Blood 0.77 mg/dL (0.60-1.20); Glomerular Filtration Rate >60 (60-); Glucose, Blood 124 mg/dL (70-99); Potassium, Blood 3.9 mmol/L (3.5-5.5); Sodium, Blood 140 mmol/L (136-145)
[2019-09-08 04:00] LABS: Magnesium, Blood 1.1 mg/dL (1.6-2.4)
--- NOTE | 2019-09-08 06:19 | NUR ---
SHIFT SUMMARY ASSUMED CARE OF PT AT 1900 HRS, PT AWAKE LYING IN BED W/ NO SIGNS OF DISTRESS. MEDICATED AND TREATED PT PER UNIT PROTOCOL AND MD ORDER. PT TURNED AND REPOSITIONED Q2 HRS PER PROTOCOL EXCEPT WHEN PT REPOSITIONED SELF. PT WAS INCONTINENT OF BOWEL 3X THIS SHIFT, FECES ARE LOOSE, BROWN W/ SCANT SIGNS OF MARK BLOOD. AT 2320 PT WAS ADAMANT ABOUT GETTING SLEEP AND REFUSED ABX TX AT THAT TIME, BUT WAS PLEASANT AND COOPERATIVE AT ALL OTHER INTERVENTIONS. PT RECEIVED ONE BREATHING TREATMENT AROUND 0400 FOR SOB. WILL CONTINUE TO MONITOR AND WILL PASS CARE AND REPORT TO ONCOMING SHIFT. BED LOW AND LOCKED, CALL LIGHT W/IN REACH
--- NOTE | 2019-09-08 10:15 | NUR ---
ASSUMED CARE APPROXIMATELY 0700; PT ALERT; NEEDS SOME TIME TO RESPOND TO QUESTIONS, BUT RESPONDS APPROPRIATELY; PT WILL BE ON FULL LIQUIDS AFTER BREAKFAST TRAY AND IS SCHEDULED FOR SCOPE PROCEDURE FOR 09/09/19; PT IN WC BASELINE; STATES HE IS ON RA BASELINE; PT ON 1L NC, BUT FREQUENTLY HAS IT ON HIS HEAD HE SATES IT BOTHERS HIM; CALL LIGHT IN REACH; BED IN LOWEST POSITION
--- NOTE | 2019-09-08 10:23 | NUR ---
STATUS CHANGE PT BEING TRANSFERRED TO MEDICAL FLOOR; REPORT CALLED TO RUBEN Husain RN
--- NOTE | 2019-09-08 10:50 | NUR ---
PATIENT TRANSFERRED FROM PCU 13 TO ROOM 354. REPORT RECIVED FROM CARROL HEDRICK. PATIENT IS W/C BOUND AT BASELINE AND A Q2 TURN. SKIN IS DRY AND PEELING, MULTIPLE MEPILEX'S IN PLACE COVERING WOUNDS TO ELBOWS AND BUTTOCKS. KAPOOR IN PLACE AND PATENT. 20G IV TO R HAND WNL, TKO BETWEEN ABX. ST ON TELE PER PCU NURSE, RATE 110-120. VSS, ON RA. ORIENTED TO ROOM AND USE OF CALL LIGHT. FALL PRECAUTIONS IN PLACE PER UNIT PROTOCOL. NICOTINE PATCH PLACED TO L SHOULDER. PATIENT DENIES ANY NEEDS AT THIS TIME.
--- NOTE | 2019-09-08 11:42 | NUR ---
PATIENT HAD LOOSE STOOL WITH LARGE AMOUNT OF BRIGHT RED BLOOD. DR. GONZALES NOTIFIED OF THIS AND HE PLANS TO RECHECK HEMOGLOBIN LATER TODAY.
[2019-09-08 14:20] LABS: Hematocrit 23.9 % (37.0-53.0); Hemoglobin 7.4 g/dL (13.5-17.5)
--- NOTE | 2019-09-08 20:22 | NUR ---
TRANSFER TO PCU AT 2015 ACCOMPANIED BY MEDICAL UNIT CHARGE NURSE AND PROCEDURE NURSE.
--- NOTE | 2019-09-09 00:10 | NUR ---
PCU ARRIVAL / CARE ASSUMPTION PT BROUGHT TO PCU RM 04 FROM MEDICAL FLOOR BY HOSP BED @ APPROX 2014 D/T CONERN R/T PRE EXISTING GIB. PT A&O X4, PLEASANT AND COOPERATIVE. VSS. SPO2 > 92% ON 1L NC. MONITOR SHOWS ST, HR 100-110. PT W/ SMALL, LOOSE MAROON COLORED BM UPON ARRIVAL TO UNIT. RITU CARE & ATTENDS CHANGE PROVIDED. PT'S GROIN AREA NOTED TO BE RED, CREAM APPLIED PER EMAR. WILL CONTINUE TO MONITOR AND PROVIDE CARE.
[2019-09-09 03:36] LABS: Hemoglobin 8.7 g/dL (13.5-17.5); Mean Corpuscular HGB 31.6 pg (26.0-34.0); Mean Corpuscular HGB Conc 31.1 g/dL (31.5-36.5); Mean Corpuscular Volume 102 fL (80-100); Mean Platelet Volume 10.4 fL (9.1-12.4); NRBC ABSOLUTE 0.03 K/mm3 (0.00-0.02); NRBC Auto 0.4 /100 WBC (0.0-0.2); Platelet Count 357 K/mm3 (150-400); RDW Standard Deviation 59.7 fL (35.1-46.3); Red Blood Cell Count 2.75 M/mm3 (4.30-5.90); White Blood Cell Count 8.03 K/mm3 (4.00-11.30)
[2019-09-09 03:55] LABS: Anion Gap 3 mmol/L (6-16); Blood Urea Nitrogen 11 mg/dL (8-24); Bun/Creatinine Ratio 16.3 (12.0-20.0); CO2, Blood 31 mmol/L (21-32); Calcium, Blood 8.3 mg/dL (8.5-10.1); Chloride, Blood 105 mmol/L (98-108); Creatinine, Blood 0.68 mg/dL (0.60-1.20); Glomerular Filtration Rate >60 (60-); Glucose, Blood 90 mg/dL (70-99); Magnesium, Blood 1.3 mg/dL (1.6-2.4); Potassium, Blood 4.7 mmol/L (3.5-5.5); Sodium, Blood 139 mmol/L (136-145)
--- NOTE | 2019-09-09 06:21 | NUR ---
SHIFT SUMMARY PT A&O X4. VSS. 1 SMALL MAROON COLORED BM UPON ARRIVAL TO UNIT FROM MEDICAL FLOOR W/ NO FURTHER BM'S OR BLEEDING THIS SHIFT. HGB STABLE. PT GROIN RED W/ OPEN AREAS, SKIN CARE W/ CREAMS PER EMAR. PT SKIN T/O EXTREMITIES PEELING. SKIN CARE PERFORMED T/O. PT DENIES PAIN/DISCOMFORT. PT FULL LIQUID DIET UNTTIL 0600 THIS AM, NOW WATER AND ICE ONLY W/ PLAN FOR NPO @ 1400 FOR SCOPE. WILL CONTINUE TO MONITOR AND PROVIDE CARE UNTL REPORT OFF TO DAY SHIFT RN.
--- NOTE | 2019-09-09 12:08 | NUR ---
[facility] visit conducted. Patient is lying in bed and alert. Patient mumbles and is very hard to understand. I was able to understand that patient is open to having a prayer. I gladly provided prayer. Patient would agress with certain places in the prayer by saying, "Yes." Patient then mumbled after the prayer but about all I picked up is that patient said he is "sick." I will continue to remain available to patient and family.
--- NOTE | 2019-09-09 13:30 | NUR ---
PT AWAKE DURING SHIFT REPORT. NPO EXCEPT WATER AND ICE CHIPS TO PREPARE FOR SCOPE PREP. BOWEL PREP STARTED AT 0900, BUT PT NONCOMPLIANT AND WANTING TO "REST" BEFORE STARTING IT. ATTEMPTED EVERY FEW MINUTES TO ENCOURAGE PT TO DRINK. PT ONLY DRINKING 1/2 GOLYTELY AND HAVING FIRST BM; SOFT STOOL. 1328 DR COPPOLA NOTIFIED OF PT'S NONCOMPLIANCE. DR COPPOLA TO COME IN AND TALK WITH PT.
--- NOTE | 2019-09-09 15:40 | NUR ---
ASSUMED CARE: PT CODED IN PCU. VISUAL COMMUNICATIONS INSTRUCTOR REPORTS THAT COMPUTER TECHNOLOGY TEACHER TOLD HER TO CHECK PT DUE TO ASYSTOLE ON MONITOR. WHEN SHE ARRIVED PT WAS AGONAL BREATHING, CODE CALLED. REPORT RECIEVED FROM CARROL GARCIA. JOSE STATES SHE WILL NOTIFY DR COPPOLA DUE TO PT SUPPOSED TO HAVE SCOPE THIS AFTERNOON. WHEN PT ARRIVED TO ICU 10 HE HAD ETT IN PLACE 7.5, 25 AT TEETH. AC 14/500/5/25%. OG DROPPED WITH GREEN GASTRIC SECRETIONS NOTED. KAPOOR IN PLACE. RECTAL TUBE IN PLACE WITH ADELA RED LIQUID STOOL NOTED. PT WITH WOUNDS BILATERAL INNER THIGHS. BILATERAL WRIST RESTRAINTS PLACED AND LEVOPHED STARTED PER VERBAL ORDER FROM DR CORREA DUE TO HYPOTENSION. DR CORREA AWARE AND PLANNING TO PLACE CENTRAL LINE. PROPOFOL HELD AT THIS TIME DUE TO BLOOD PRESSURES.
--- NOTE | 2019-09-09 16:07 | NUR ---
1406 DR COPPOLA NOTIFIED OF PT STATUS AND TX TO ICU. PT WILL NOT BE HAVING SCOPE TODAY, PREVIOUSLY SCHEDULED.
--- NOTE | 2019-09-09 17:30 | NUR ---
DR CORREA CAME TO BEDSIDE AND ATTEMPTED CENTRAL LINE TO BILATERAL JUGULAR BETWEEN 1545 AND 1630. COULD NOT FEED CATHETER ON RIGHT SIDE DUE TO RESISTANCE. LEFT SIDE WAS ABLE TO FEED CATH BUT NO BLOOD RETURN. RT NOTED WHEEZING, 1ST UNIT PRBCS RUNNING. ADMINISTERED NEB TREATMENT WHILE DR CORREA ORDER STAT CXR. DR HERE TO VIEW XRAY, NO PNEUMO NOTED. DR REQUESTED PICC LINE. PICC RN NOTIFIED. GUEVARA RN, PLACED PICC LINE TO LEFT ARM. LEVOPHED SWITCHED TO PICC LINE AND TITRATING PER AFFECT. TITRATING PROPOFOL TO AFFECT
[2019-09-09 17:39] LABS: Hematocrit 26.8 % (37.0-53.0); Hemoglobin 8.5 g/dL (13.5-17.5); Mean Corpuscular HGB 30.8 pg (26.0-34.0); Mean Corpuscular HGB Conc 31.7 g/dL (31.5-36.5); Mean Corpuscular Volume 97 fL (80-100); Mean Platelet Volume 10.3 fL (9.1-12.4); NRBC ABSOLUTE 0.09 K/mm3 (0.00-0.02); NRBC Auto 0.9 /100 WBC (0.0-0.2); Platelet Count 390 K/mm3 (150-400); RDW Coefficient Variation 16.2 % (11.7-14.2); RDW Standard Deviation 57.1 fL (35.1-46.3); Red Blood Cell Count 2.76 M/mm3 (4.30-5.90)
[2019-09-09 17:58] LABS: Alanine Aminotransfer (ALT/SGP 26 U/L (12-78); Albumin, Blood 1.2 g/dL (3.4-5.0); Albumin/Globulin Ratio 0.3 (0.8-1.8); Alk Phos 183 U/L (50-136); Anion Gap 5 mmol/L (6-16); Aspartate Aminotrans (AST/SGOT 37 U/L (12-37); Bilirubin, Total 0.5 mg/dL (0.1-1.0); Blood Urea Nitrogen 9 mg/dL (8-24); CO2, Blood 32 mmol/L (21-32); Calcium, Blood 7.6 mg/dL (8.5-10.1); Chloride, Blood 102 mmol/L (98-108); Creatinine, Blood 0.69 mg/dL (0.60-1.20); Globulin, Blood 4.2 g/dL (2.2-4.0); Glomerular Filtration Rate >60 (60-); Glucose, Blood 98 mg/dL (70-99); Potassium, Blood 4.9 mmol/L (3.5-5.5); Sodium, Blood 139 mmol/L (136-145); Total Protein, Blood 5.4 g/dL (6.4-8.2)
[2019-09-09 18:05] LABS: BAND PERCENT MAN 9 % (0-8); BASOPHILS PERCENT MAN 0 % (0-2); EOSINOPHILS PERCENT MAN 1 % (0-6); LYMPHOCYTES ABSOLUTE MAN 0.73 K/mm3 (0.84-5.20); LYMPHOCYTES PERCENT MAN 7 % (21-46); METAMYELOCYTE ABSOLUTE MAN 1.26 K/mm3 (0.00-0.00); METAMYELOCYTE PERCENT MAN 12 % (0-0); MONOCYTES ABSOLUTE MAN 0.42 K/mm3 (0.16-1.47); MONOCYTES PERCENT MAN 4 % (4-13); MYELOCYTE ABSOLUTE MAN 0.42 K/mm3 (0.00-0.00); MYELOCYTE PERCENT MAN 4 % (0-0); NEUTROPHILS ABSOLUTE MAN 7.35 K/mm3 (1.96-9.15); PROMYELOCYTE ABSOLUTE MAN 0.21 K/mm3 (0.00-0.00); PROMYELOCYTE PERCENT MAN 2 % (0-0); SEG NEUTROPHILS PERCENT MAN 61 % (41-73); TOTAL CELLS COUNTED 100
[2019-09-09 18:07] LABS: Magnesium, Blood 1.1 mg/dL (1.6-2.4)
--- NOTE | 2019-09-09 19:01 | NUR ---
Post cardiac arrest. pt to ICU review of patients history with staff and physicians. Past contact with patient he does not have family but friends who do not always have their phones turned on. Prognosis poor. Review with intesivist etical care if decisions need to be made for end of life.
--- NOTE | 2019-09-09 19:33 | NUR ---
SHIFT SUMMARY: PT IN ICU 10 POST CODE. INTUBATED, VENT SETTINGS AC 14/500/5/35%. PROPOFOL AT 25 MCG/KG/MIN. LEVOPHED OFF. SECOND UNIT OF BLOOD RUNNING AT THIS TIME. OG AND RECTAL TUBES IN PLACE. KAPOOR CATH IN PLACE. PT HAS FLUTTERED EYE LIDS AND AND MOVED HAND WHEN PRESSED, OTHERWISE NONRESPONSIVE TO STIMULI. BILATERAL WRIST RESTRAINTS IN PLACE. DR CORREA DISCUSSED CASE WITH PALLIATIVE CARE AND AWARE THAT ETHICS CONSULT MAY BE NEEDED DUE TO BEING UNABLE TO FIND FAMILY AT THIS TIME. REPORT GIVEN TO NIGHT RN, AWARE THAT SCDS NEED PLACED.
[2019-09-09 21:09] LABS: Hematocrit 27.8 % (37.0-53.0); Hemoglobin 9.4 g/dL (13.5-17.5)
[2019-09-10 03:51] LABS: Hematocrit 27.7 % (37.0-53.0); Hemoglobin 9.4 g/dL (13.5-17.5); LYMPHOCYTES ABSOLUTE AUTO 1.65 K/mm3 (0.84-5.20); LYMPHOCYTES PERCENT AUTO 18 % (21-46); MONOCYTES ABSOLUTE AUTO 0.95 K/mm3 (0.16-1.47); MONOCYTES PERCENT AUTO 10 % (4-13); Mean Corpuscular HGB 31.5 pg (26.0-34.0); Mean Corpuscular HGB Conc 33.9 g/dL (31.5-36.5); NRBC ABSOLUTE 0.06 K/mm3 (0.00-0.02); NRBC Auto 0.7 /100 WBC (0.0-0.2); Platelet Count 355 K/mm3 (150-400); RDW Coefficient Variation 17.2 % (11.7-14.2); RDW Standard Deviation 57.8 fL (35.1-46.3); Red Blood Cell Count 2.98 M/mm3 (4.30-5.90)
[2019-09-10 03:54] LABS: BASOPHILS ABSOLUTE AUTO 0.04 K/mm3 (0.00-0.23); BASOPHILS PERCENT AUTO 0 % (0-2); EOSINOPHILS ABSOLUTE AUTO 0.15 K/mm3 (0.00-0.68); EOSINOPHILS PERCENT AUTO 2 % (0-6); IMMATURE GRAN ABSOLUTE AUTO 1.85 K/mm3 (0.00-0.10); IMMATURE GRAN PERCENT AUTO 20 % (0-1); Mean Corpuscular Volume 93 fL (80-100); NEUTROPHILS ABSOLUTE AUTO 4.46 K/mm3 (1.96-9.15); NEUTROPHILS PERCENT AUTO 49 % (41-73)
[2019-09-10 04:06] LABS: Anion Gap 8 mmol/L (6-16); Blood Urea Nitrogen 8 mg/dL (8-24); Bun/Creatinine Ratio 10.4 (12.0-20.0); CO2, Blood 31 mmol/L (21-32); Calcium, Blood 7.4 mg/dL (8.5-10.1); Chloride, Blood 104 mmol/L (98-108); Creatinine, Blood 0.77 mg/dL (0.60-1.20); Glomerular Filtration Rate >60 (60-); Glucose, Blood 72 mg/dL (70-99); Magnesium, Blood 1.2 mg/dL (1.6-2.4); Potassium, Blood 3.9 mmol/L (3.5-5.5); Sodium, Blood 143 mmol/L (136-145)
[2019-09-10 04:27] LABS: BAND PERCENT MAN 6 % (0-8); BASOPHILS ABSOLUTE MAN 0.18 K/mm3 (0.00-0.23); BASOPHILS PERCENT MAN 2 % (0-2); BLASTS PERCENT MAN 1 % (0-0); EOSINOPHILS ABSOLUTE MAN 0.09 K/mm3 (0.00-0.68); EOSINOPHILS PERCENT MAN 1 % (0-6); LYMPHOCYTES ABSOLUTE MAN 1.82 K/mm3 (0.84-5.20); LYMPHOCYTES PERCENT MAN 20 % (21-46); METAMYELOCYTE ABSOLUTE MAN 0.36 K/mm3 (0.00-0.00); METAMYELOCYTE PERCENT MAN 4 % (0-0); MONOCYTES ABSOLUTE MAN 0.81 K/mm3 (0.16-1.47); MONOCYTES PERCENT MAN 9 % (4-13); MYELOCYTE ABSOLUTE MAN 0.18 K/mm3 (0.00-0.00); MYELOCYTE PERCENT MAN 2 % (0-0); NEUTROPHILS ABSOLUTE MAN 5.36 K/mm3 (1.96-9.15); PROMYELOCYTE ABSOLUTE MAN 0.18 K/mm3 (0.00-0.00); PROMYELOCYTE PERCENT MAN 2 % (0-0); SEG NEUTROPHILS PERCENT MAN 53 % (41-73); TOTAL CELLS COUNTED 100
--- NOTE | 2019-09-10 07:14 | NUR ---
ASSUMED CARE: PT RESTING QUIETLY AT THIS TIME. INTUBATED, VENT SETTINGS AC 14/500/5/35%. OG, RECTAL TUBES, KAPOOR CATH, BILATERAL WRIST RESTRAINTS. RT AT BEDSIDE. NO ACUTE NEEDS OR CONCERNS AT THIS TIME.
--- NOTE | 2019-09-10 07:30 | NUR ---
SHIFT SUMMARY PT HAD AN UNEVENTFUL NIGHT. RECEIVED 2ND UNIT OF BLOOD, REPEAT HEMOGLOBIN = 9.4, AM LAB THE SAME. DID REQUIRE MAGNESIUM REPLACEMENT, OTHERWISE LABS IN GOOD CONDITION. BLOOD PRESSURE 130S-150S OVER 80S-90S AFTER 2ND UNIT OF BLOOD, DID NOT REQUIRE LEVOPHED DRIP THE REST OF NIGHT. PT REMAINED SEDATED THROUGH NIGHT, DID HAVE TO INCREASE MIMIMNALLY FOR VENTILATOR COMPLIANCE. NO S/S OF BLEEDING THROUGH RECTAL TUBE NOR NG. AT LOWER SEDATION LEVEL, PT. WAS LOCALIZING TO PRESSURE APPLIED TO FINGERNAILS, MOVING ALL EXTREMETIES, TRACKING MY VOICE I MOVE AROUND ROOM. VSS. NO S/S OF PAIN. IT HAS BEEN A PLEASURE TAKING CARE OF THIS PATIENT.
--- NOTE | 2019-09-10 10:12 | NUR ---
SEDATION VACATION DONE WHILE REPOSITIONING PT. EYES OPEN AND BLINKS BUT DOES NOT TRACK. EYES MOVE WHEN TURNING HEAD BUT DOES NOT SEEM PURPOSEFUL. IS NOT FOLLOWING INSTRUCTIONS. DISCUSSED WITH DR CORREA WHO INSTRUCTS TO KEEP SEDATION OFF AT THIS TIME FOR FURTHER MONITORING OF RESPONSIVENESS. SOCCER PLAYER AWARE
--- NOTE | 2019-09-10 10:34 | NUR ---
PROPOFOL REMAINS OFF, BLINKING EYES, NOT TRACKING OR RESPONDING TO PRESSURE OR STIMULI. NOT FOLLOWING COMMANDS OR MOVING FINGERS OR HANDS. WILL MOVE FEET WHEN STIMULI APPLIED TO SOLE OF FOOT. LOCALIZES AND PULLS AWAY FOOT.
--- NOTE | 2019-09-10 11:22 | NUR ---
DR CORREA MADE AWARE OF PT'S CONTINUING DESATURATION AT 88-LOW 90S. INSTRUCTED TO INCREASE FIO2 TO 40%. DR WENT INTO ROOM TO DO NEURO EXAM AND GRIMACING AND LOCALIZING TO STIMULUS NOTED IN FACE AND FEET. DR AWARE OF INCREASING BLOOD PRESSURES AND INSTRUCTED TO RESTART PROPOFOL. GTT RUNNING AT 30MCG/KG/MIN AT THIS TIME. CALL TO INFECTION CONTROL TO CONFIRM NEED FOR ISOLATION. INSTRUCTED THAT ISOLATION NEEDS TO REMAIN UNTIL SECOND SWAB CLEARED
--- NOTE | 2019-09-10 18:04 | NUR ---
SHIFT SUMMARY: PT REMAINING ON VENT, AC 14/500/5/35%. PROPOFOL AT 40 MCG/KG/MIN. HYPERTENSIVE WITH STIMULATION. LARGE AMOUNTS OF ORAL SECRETIONS. ORAL BLEEDING NOTED, DRS AWARE. PLAN IS FOR COLONOSCOPY TOMORROW AFTERNOON WITH PREP TO START TOMORROW AM. DR CORREA TOLD CHARGE THAT HE WAS PLANNING TO HOLD OFF FEEDS UNTIL TOMORROW. DR COPPOLA AWARE AND STATES WE CAN START WATER FLUSHES TOMORROW THEN NPO IN AFTERNOON. PALLIATIVE CARE TO SPEAK WITH [facility] JACOBS IN PREPARATION FOR ETHICS CONSULT NEEDED IF PT'S NEURO STATUS REMAINS DIMINISHED. CONTINUES TO BE REACTIVE TO NOXIOUS STIMULI, GRIMACE OF BROWS NOTED AND LOCALIZING OF FEET. NO MOVEMENT OF HANDS NOTED
--- NOTE | 2019-09-10 19:00 | NUR ---
ASSUMED CARE ASSUMED CARE OF PATIENT. REMAINS INTUBATED- AC 14, TV 500, PEEP 5, FIO2 30%. RR 14. COPIOUS THICK ORAL SECRETIONS NOTED. SEDATED WITH PROPOFOL @ 45MCG/KG/MIN. WITHDRAWS BLE AND OPENS EYES SLIGHTLY TO NOXIOUS STIMULI. NO REPSONSE NOTED IN UPPER EXTREMITIES. PUPILS 2MM, SLUGGISH WITH DOWNWARD GAZE NOTED. BILATERAL SOFT WRIST RESTRAINTS IN PLACE TO PREVENT SELF-EXTUBATION. MONITOR SHOWS NSR, RATE 90s. BP STABLE AT THIS TIME, BUT PT HAS HAD PERIODS OF HYPERTENSION. AFEBRILE. OG TO LIS WITH SCANT DRAINAGE. KAPOOR PATENT AND DRAINING YELLOW URINE. RECTAL TUBE IN PLACE WITH BROWN LIQUID STOOL. PAS TO BLE. LR INFUSING @ 100CC/HR PER ORDER. 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 SEE SHIFT ASSESSMENT FOR FULL ASSESSMENT.
--- NOTE | 2019-09-11 04:17 | NUR ---
SEDATION VACATION PROPOFOL TITRATED DOWN TO 20MCG/KG/MIN AT THIS TIME. WILL CONTINUE TO TITRATE DOWN FOR WEANING TRIAL TOLERATED.
[2019-09-11 04:32] LABS: BASOPHILS ABSOLUTE AUTO 0.16 K/mm3 (0.00-0.23); BASOPHILS PERCENT AUTO 2 % (0-2); Hematocrit 28.7 % (37.0-53.0); Hemoglobin 9.3 g/dL (13.5-17.5); LYMPHOCYTES ABSOLUTE AUTO 0.98 K/mm3 (0.84-5.20); LYMPHOCYTES PERCENT AUTO 11 % (21-46); MONOCYTES ABSOLUTE AUTO 0.59 K/mm3 (0.16-1.47); MONOCYTES PERCENT AUTO 6 % (4-13); Mean Corpuscular HGB 30.6 pg (26.0-34.0); Mean Corpuscular HGB Conc 32.4 g/dL (31.5-36.5); Mean Corpuscular Volume 94 fL (80-100); Mean Platelet Volume 10.2 fL (9.1-12.4); NRBC ABSOLUTE 0.05 K/mm3 (0.00-0.02); NRBC Auto 0.5 /100 WBC (0.0-0.2); Platelet Count 390 K/mm3 (150-400); RDW Coefficient Variation 16.5 % (11.7-14.2); RDW Standard Deviation 56.7 fL (35.1-46.3); Red Blood Cell Count 3.04 M/mm3 (4.30-5.90); White Blood Cell Count 9.28 K/mm3 (4.00-11.30)
[2019-09-11 04:33] LABS: EOSINOPHILS ABSOLUTE AUTO 0.22 K/mm3 (0.00-0.68); EOSINOPHILS PERCENT AUTO 2 % (0-6); IMMATURE GRAN ABSOLUTE AUTO 1.63 K/mm3 (0.00-0.10); IMMATURE GRAN PERCENT AUTO 18 % (0-1); NEUTROPHILS PERCENT AUTO 61 % (41-73)
[2019-09-11 04:45] LABS: Anion Gap 8 mmol/L (6-16); Blood Urea Nitrogen 8 mg/dL (8-24); Bun/Creatinine Ratio 8.8 (12.0-20.0); CO2, Blood 30 mmol/L (21-32); Calcium, Blood 7.6 mg/dL (8.5-10.1); Chloride, Blood 105 mmol/L (98-108); Creatinine, Blood 0.91 mg/dL (0.60-1.20); Glomerular Filtration Rate >60 (60-); Glucose, Blood 80 mg/dL (70-99); Potassium, Blood 3.5 mmol/L (3.5-5.5); Sodium, Blood 143 mmol/L (136-145)
--- NOTE | 2019-09-11 04:50 | NUR ---
SEDATION PT WITH INCREASED WORK OF BREATHING NOTED AND HYPERTENSION. WILL HOLD OFF ON SPONTANEOUS BREATHING TRIAL FOR NOW. PROPOFOL INCREASED TO 50MCG/KG/MIN.
[2019-09-11 04:53] LABS: BAND PERCENT MAN 9 % (0-8); BASOPHILS PERCENT MAN 0 % (0-2); EOSINOPHILS ABSOLUTE MAN 0.27 K/mm3 (0.00-0.68); EOSINOPHILS PERCENT MAN 3 % (0-6); LYMPHOCYTES ABSOLUTE MAN 1.11 K/mm3 (0.84-5.20); LYMPHOCYTES PERCENT MAN 12 % (21-46); METAMYELOCYTE ABSOLUTE MAN 0.09 K/mm3 (0.00-0.00); METAMYELOCYTE PERCENT MAN 1 % (0-0); MONOCYTES ABSOLUTE MAN 0.09 K/mm3 (0.16-1.47); MONOCYTES PERCENT MAN 1 % (4-13); NEUTROPHILS ABSOLUTE MAN 7.51 K/mm3 (1.96-9.15); PROMYELOCYTE ABSOLUTE MAN 0.18 K/mm3 (0.00-0.00); PROMYELOCYTE PERCENT MAN 2 % (0-0); SEG NEUTROPHILS PERCENT MAN 72 % (41-73); TOTAL CELLS COUNTED 100
--- NOTE | 2019-09-11 06:26 | NUR ---
SHIFT SUMMARY NO ACUTE CHANGES DURING NOC. REMAINS INTUBATED- AC 14, TV 500, PEEP 5, FIO2 30%. SEDATED WITH PROPOFOL BETWEEN 20-50MCG/KG/MIN DURING SHIFT- NOW INFUSING @ 50MCG/KG/MIN. WITHDRAWS BLE TO NOXIOUS STIMULI AND OPENS EYES MINIMALLY. NO OTHER SPONTANEOUS MOVEMENT NOTED. EYES WITH DOWNWARD GAZE. NO GAG REFLEX. SLIGHT COUGH NOTED WITH SUCTIONING. BILATERAL SOFT WRIST RESTRAINTS REMAIN IN PLACE. OG TO LIS WITH 200CC LIGHT PINKISH DRAINAGE. RECTAL TUBE WITH SMALL AMOUNT OF RUST-COLORED LIQUID STOOL. KAPOOR PATENT AND DRAINING TO GRAVITY. LR INFUSING @ 100CC/HR PER ORDER. OCCASIONALLY HYPERTENSIVE DURING NOC. MONITOR SHOWS NSR-ST, 80S-100s. AFEBRILE. WILL REPORT TO DAY SHIFT RN WHEN AVAILABLE.
--- NOTE | 2019-09-11 08:01 | NUR ---
CARE OF PT ASSUMED AT 0710. PT SEDATED ON PROPOFOL AT 50MCG FOR MECH VENT. PT SPONT OPENS EYES. CORNEAL REFLEX INTACT. PT DOES NOT MAKE ANY PURPOSEFUL MOVEMENTS, DOES NOT RESPOND TO STERNAL RUB. PT HAS INTACT PLANTAR REFLEX. PT HAS COUGH, GAG, AND SWALLOW. EYES DO NOT TRACT, EYES IN EITHER UPWARD OR DOWNWARD GAZE. PROPOFOL PLACED ON STANDBY TO FURTHER EVALUATE NEURO STATUS. LUNGS COARSE T/O WITH RHONCHI. GOLYTELY TO START AT 0900 TODAY FOR COLONOSCOPY. STOOL IS MAROON/ORANGE COLORED PER RECTAL TUBE. BT'S ARE HYPERACTIVE.
--- NOTE | 2019-09-11 08:44 | NUR ---
PROPOFOL PLACED ON STANDBY TO ASSESS NEUROLOGICAL STATUS. AFTER 10MIN, PT HYPERTENSIVE, NO PURPOSEFUL MOVEMENT, DOES NOT TRACK W EYES, RIGID, FLUSHED WITH HTN (SBP 190). TACHYCARDIA 110. SATS 88%. PT DOES HOWEVER RESPOND TO PAIN (WITHDRAWAL). COPIOUS AMT OF THICKER WHITE SPUTUM SX'D FROM ETT. PROPOFOL PLACED AT 30MCG. UNA INQUIRE ABOUT PRN FENT/ATIVAN TO SUPPLIMENT PROPOFOL. PT DID APPEAR TO BE IN PAIN WHEN OFF PROPOFOL.
--- NOTE | 2019-09-11 09:18 | NUR ---
DR VELASCO AT BEDSIDE. FULL UPDATE GIVEN. EEG TO BE ORDERED. COLONSCOPY PLANNED FOR AFTER 4, PREP STARTED.
--- NOTE | 2019-09-11 13:01 | NUR ---
THERE HAS BEEN AN INCREASE IN ETT SECRETIONS WITH IN PROPOFOL DOSE, WHICH IS AT 30MCG. PT MOVES LEGS SPONT. NO MOVEMENT IN ARMS NOTED, MOVEMENT TO HEAD AND SHOULDERS NOTED. GOLYTELY GIVEN OVER 3 OVERS VIA OG TUBE. SMALL AMT OF DARK MAROON BLOOD TO RECTAL TUBE. ABD FIRM AND DISTENDED W HYPERACTIVE BT'S T/O.
[2019-09-11 14:35] LABS: Hematocrit 33.8 % (37.0-53.0); Hemoglobin 10.7 g/dL (13.5-17.5)
--- NOTE | 2019-09-11 14:45 | NUR ---
DURING 1400 PRIOR TO TURN PT HAD COPIOUS AMT OF DARK EMESIS. OG PLACED TO CONT SUCTION; 2L VERY DARK ADELA RED GASTRIC CONTENTS SX'D OVER JUST 5MIN. THERE IS APPROX 1L BLACK/RED STOOL TO RECTAL TUBE. DR COPPOLA CALLED AND NOTIFIED. COLONOSCOPY CANCELLED FOR TODAY, REGLAN TO BE ORDERED ALONG WITH PREP REPEATED TOMORROW OVER A LONGER PERIOD OF TIME; 6 HRS. PT W TMAX OF 102.7. TYLENOL GIVEN BUT LATER SX'D D/T EMESIS. ICE PACKS TO UNDERARMS, NECK, AND GROIN. GOWN REMOVED. DR VELASCO NOTIFIED. BLOOD CX'S ORDERED AND SENT. H&H CHECKED; WNL. PROPOFOL INCREASED TO 45MCG PT WAS MORE RIDGID AND APPEARED UNCOMFORTABLE. FENT IVP GIVEN WELL.
--- NOTE | 2019-09-11 16:28 | NUR ---
TEMP DOWN TO 101.8, HEART RATE 120'S, BP STABLE. DR VELASCO HAS BEEN IN SEVERAL TIMES TO CHECK ON PT. OG TO LIS; OUTPUT HAS SLOWED DOWN; REMAINS DARK RED/BROWN. NEW PICTURES OF WOUNDS TAKEN TODAY. PROPOFOL AT 45MCG. NO NEW NEURO CHANGES. LUNGS REMAIN COARSE T/O WITH RHONCHI.
--- NOTE | 2019-09-11 18:05 | NUR ---
SHIFT SUMMARY NO CHANGES IN NEURO STATUS. PT MINIMALLY RESPONSIVE, RESPONDS TO PAIN;WITHDRAWALS. TMAX 102.7. ICE PACKS REMAIN ON PT. TEMP 101.8. VERY DARK BLACK/MAROON BLOOD TO OG AND FLEXISEAL BAG; APPEARS TO BE OLD BLOOD. DR COPPOLA TO COME BY LATER AND SEE PT AND ALSO WILL WRITE NEW ORDERS FOR POSSIBLE COLONSCOPY TOMORROW. MESSAGE LEFT W HAND SANDER, WELL PAGING TECH; DID NOT DEV BACK FROM HAND SANDER TODAY. NO CHANGES TO VENT SETTINGS. PT REMAINS COARSE T/O W RHONCHI. THICK COPIOUS WHITE SECRETIONS FROM ETT. AWAITING BLOOD CX RESULTS. RHYTHM TACHY T/O SHIFT, BP LABILE WITH HTN BUT WNL NOW. PROPOFOL AT 45MCG.
--- NOTE | 2019-09-11 19:00 | NUR ---
ASSUMED CARE ASSUMED CARE OF PATIENT. REMAINS INTUBATED- AC 14, TV 500, PEEP 5, FIO2 30%. CONTINUES WITH THICK ETT AND ORAL SECRETIONS. SEDATED WITH PROPOFOL @ 45MCG/KG/MIN. OPENS EYES TO NOXIOUS STIMULI. DOWNWARD GAZE NOTED. WITHDRAWS BILATERAL LOWER EXTREMITIES TO STIMULI. NO OTHER RESPONSE. NO SPONTANEOUS MOVEMENT. BILATERAL SOFT WRIST RESTRAINTS IN PLACE. FERNANDO, 2MM, SLUGGISH. NO GAG NOTED. SLIGHT COUGH REFLEX NOTED. MONITOR SHOWS ST, RATE 110-115. BP STABLE. TEMP 101.6F VIA KAPOOR TEMP PROBE. OG TO LIS WITH DARK BLACKISH-BROWN DRAINAGE. RECTAL TUBE IN PLACE WITH DARK RUST-COLORED LIQUID STOOL. KAPOOR PATENT AND DRAINING YELLOW URINE. SEE PICS ON CHART FOR SKIN ASSESSMENT. VINICIUS PICC NOTED. LR INFUSING @ 100CC/HR PER ORDER. SEE SHIFT ASSESSMENT FOR FULL ASSESSMENT.
[2019-09-12 04:38] LABS: Hematocrit 21.2 % (37.0-53.0); Hemoglobin 6.9 g/dL (13.5-17.5); Mean Corpuscular HGB 31.4 pg (26.0-34.0); Mean Corpuscular HGB Conc 32.5 g/dL (31.5-36.5); Mean Corpuscular Volume 96 fL (80-100); Platelet Count 356 K/mm3 (150-400); RDW Coefficient Variation 16.2 % (11.7-14.2); RDW Standard Deviation 56.5 fL (35.1-46.3); White Blood Cell Count 9.97 K/mm3 (4.00-11.30)
[2019-09-12 04:54] LABS: Anion Gap 8 mmol/L (6-16); Blood Urea Nitrogen 14 mg/dL (8-24); Bun/Creatinine Ratio 14.5 (12.0-20.0); CO2, Blood 29 mmol/L (21-32); Calcium, Blood 7.1 mg/dL (8.5-10.1); Chloride, Blood 107 mmol/L (98-108); Creatinine, Blood 0.96 mg/dL (0.60-1.20); Glomerular Filtration Rate >60 (60-); Glucose, Blood 102 mg/dL (70-99); Potassium, Blood 2.9 mmol/L (3.5-5.5); Sodium, Blood 144 mmol/L (136-145)
[2019-09-12 05:06] LABS: BAND PERCENT MAN 13 % (0-8); BASOPHILS ABSOLUTE MAN 0.09 K/mm3 (0.00-0.23); BASOPHILS PERCENT MAN 1 % (0-2); EOSINOPHILS ABSOLUTE MAN 0.19 K/mm3 (0.00-0.68); EOSINOPHILS PERCENT MAN 2 % (0-6); LYMPHOCYTES ABSOLUTE MAN 0.79 K/mm3 (0.84-5.20); LYMPHOCYTES PERCENT MAN 8 % (21-46); METAMYELOCYTE ABSOLUTE MAN 0.29 K/mm3 (0.00-0.00); METAMYELOCYTE PERCENT MAN 3 % (0-0); MONOCYTES ABSOLUTE MAN 0.59 K/mm3 (0.16-1.47); MONOCYTES PERCENT MAN 6 % (4-13); MYELOCYTE ABSOLUTE MAN 0.59 K/mm3 (0.00-0.00); MYELOCYTE PERCENT MAN 6 % (0-0); NEUTROPHILS ABSOLUTE MAN 7.17 K/mm3 (1.96-9.15); PROMYELOCYTE ABSOLUTE MAN 0.19 K/mm3 (0.00-0.00); PROMYELOCYTE PERCENT MAN 2 % (0-0); SEG NEUTROPHILS PERCENT MAN 59 % (41-73); TOTAL CELLS COUNTED 100
--- NOTE | 2019-09-12 06:00 | NUR ---
SHIFT SUMMARY REMAINS INTUBATED- AC 14, TV 500, PEEP 5, FIO2 30%. SEDATED WITH PROPOFOL @ 45MCG/KG/MIN T/O NOC. SHORT SEDATION VACATION DONE DURING SHIFT- PT WITH INCREASED COUGHING. RECTAL TUBE WITH 700 DARK BROWNISH TO RUST-COLORED STOOL. OG TO LIS WITH DARK BLACKISH-BROWN DRAINAGE. KAPOOR PATENT AND DRAINING YELLOW URINE. PAS TO BLE. NO CHANGE IN NEURO STATUS- PT IS STILL MINIMALLY RESPONSIVE TO NOXIOUS STIMULI. DOES OCCASIONALLY OPEN EYES SPONTANEOUSLY, BUT NOT TRACKING. CONTINUES WITH DOWNWARD GAZE. LR INFUSING @ 100CC/HR PER ORDER REGLAN IVP AND GOLYTELY PER OG STARTED PER ORDER. POSSIBLE COLONOSCOPY THIS AFTERNOON PER DR. COPPOLA. 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 WILL REPORT TO DAY SHIFT RN WHEN AVAILABLE.
--- NOTE | 2019-09-12 06:52 | NUR ---
HGB DR. COPPOLA NOTIFIED OF HGB OG 6.9. NEW ORDER RECEIVED TO TRANSFUSE 3UNITS PRBC.
--- NOTE | 2019-09-12 09:55 | NUR ---
DR VELASCO IN UNIT; FULL UPDATE GIVEN. FIRST UNIT OF THREE [facility] TRANSFUSING W/O ADVERSE REACTION. KCL 60MEQ INFUSING. PT MORE REACTIVE TO STIMULI THIS AM, BUT NO PURPOSEFUL MOVEMENT NOTED. EYES OPEN SPONT BUT DO NOT TRACK, REFLEXES INTACT. GOLYTELY STARTED AND IS BEING ADMINISTERED OVER 6HRS, REGLAN GIVEN WELL TO FACILITATE GOLYTELY.
--- NOTE | 2019-09-12 11:55 | NUR ---
SECOND UNIT OF THREE STARTED W/O ANY ADVERSE REACTION. PT SHAVED AND ETT RETAPED W RT ASSISTANCE. GOLYTELY APPEARS TO MOVING THROUGH GI TRACT THERE IS AN INCREASE IN RECTAL TUBE OUTPUT.
--- NOTE | 2019-09-12 14:28 | NUR ---
3RD UNIT OF PRBC'S STARTEDW/O ADVERSE AFFECT. PT PASSING LARGE BLOOD CLOTS AROUND RECTAL TUBE. DARK MAROON BLOOD PASSING INTO RECTAL TUBE. VS REMAIN STABLE. LUNGS COARSE T/O; NO CRACKLES NOTED
--- NOTE | 2019-09-12 15:16 | NUR ---
DR VELASCO IN TO CHECK ON PT; UPDATE GIVEN. EEG TO BE DONE TONIGHT. SOME SCATTERED WHEEZES TO R LOBE; RT AT BEDSIDE GIVEN UDN TX. PT CONT TO HAVE DARK MAROON OUTPUT; BP/HR REMAINS STABLE
--- NOTE | 2019-09-12 15:59 | NUR ---
[facility] INITIAL REFERRAL MADE TO [facility]. THEY DECLINE AT THIS TIME AND STATE TO RE-REFER THE PT IF DECISION IS MADE TO WITHDRAW PT FROM [facility].
--- NOTE | 2019-09-12 16:54 | NUR ---
KENNEDY SEDATED IN ICU 10 VENTED AND UNABLE TO PARTICIPATE IN DESCUSION FOR PROCEDURE
--- NOTE | 2019-09-12 17:07 | NUR ---
09/12/19 1707 Berhane Chaudhry History, Chart, Medications and Allergies reviewed before start of procedure. MONITOR INTACT WITH CONTINUOUS PULSE OXIMETRY AND INTERMITTENT BP. PATIENT VENTED AND ON PROPOFOL DRIP.
--- NOTE | 2019-09-12 17:13 | NUR ---
DAY SURGERY AT BEDSIDE, DR COPPOLA AT BEDSIDE. COLONOSCOPY TO START SHORTLY. PROPOFOL INCREASED TO 60MCG FOR PROCEDURE.
--- NOTE | 2019-09-12 19:00 | NUR ---
ASSUMED CARE ASSUMED CARE OF PATIENT. REMAINS INTUBATED- AC 14, TV 500, PEEP 5, FIO2 30%. SEDATED WITH PROPOFOL @ 60MCG/KG/MIN DURING COLONOSCOPY, BUT NOW THAT COLONOSCOPY IS DONE, PROPOFOL TITRATED DOWN TO 50MCG/KG/MIN. MINIMAL RESPONSIVENESS AT THIS TIME. MONITOR SHOWS NSR-ST, RATE 90-100s. BP STABLE. OG TO LIS WITH SMALL AMOUNT BROWNISH-YELLOW DRAINAGE. RECTAL TUBE DISCONTINUED DURING SCOPE. KAPOOR PATENT AND DRAINING YELLOW URINE. PAS TO BLE. FRAGILE SKIN WITH MULTIPLE ULCERATED AND EXCORIATED AREAS NOTED- SEE PICS. LR INFUSING @ 100CC/HR PER ORDER. 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 SEE SHIFT ASSESSMENT FOR FULL ASSESSMENT.
--- NOTE | 2019-09-12 19:18 | NUR ---
PT TOLERATED COLONOSCOPY WELL. SEVERAL BIOPSIES TAKEN OF ULCERATED AREAS T/O COLON AND T.I. DR COPPOLA WILL START STEROIDS IN A COUPLE DAYS. PROPOFOL AT 50MCG. NO CHANGES IN VENT SETTINGS. BEDSIDE REPORT GIVEN. DR VELASCO AT BEDSIDE; UPDATE GIVEN.
[2019-09-12 19:33] LABS: Hematocrit 30.7 % (37.0-53.0); Hemoglobin 10.2 g/dL (13.5-17.5)
[2019-09-13 04:29] LABS: Hematocrit 28.7 % (37.0-53.0); Hemoglobin 9.5 g/dL (13.5-17.5); Mean Corpuscular HGB 30.8 pg (26.0-34.0); Mean Corpuscular HGB Conc 33.1 g/dL (31.5-36.5); Mean Platelet Volume 10.1 fL (9.1-12.4); Platelet Count 423 K/mm3 (150-400); RDW Coefficient Variation 16.2 % (11.7-14.2); RDW Standard Deviation 54.7 fL (35.1-46.3); Red Blood Cell Count 3.08 M/mm3 (4.30-5.90); White Blood Cell Count 10.02 K/mm3 (4.00-11.30)
[2019-09-13 04:32] LABS: Mean Corpuscular Volume 93 fL (80-100)
[2019-09-13 04:44] LABS: Anion Gap 6 mmol/L (6-16); Blood Urea Nitrogen 10 mg/dL (8-24); CO2, Blood 28 mmol/L (21-32); Calcium, Blood 7.7 mg/dL (8.5-10.1); Chloride, Blood 111 mmol/L (98-108); Creatinine, Blood 0.91 mg/dL (0.60-1.20); Glomerular Filtration Rate >60 (60-); Glucose, Blood 77 mg/dL (70-99); Potassium, Blood 3.6 mmol/L (3.5-5.5); Sodium, Blood 145 mmol/L (136-145)
[2019-09-13 04:46] LABS: BAND PERCENT MAN 7 % (0-8); BASOPHILS PERCENT MAN 2 % (0-2); EOSINOPHILS PERCENT MAN 4 % (0-6); LYMPHOCYTES PERCENT MAN 10 % (21-46); METAMYELOCYTE PERCENT MAN 5 % (0-0); MONOCYTES PERCENT MAN 5 % (4-13); MYELOCYTE PERCENT MAN 11 % (0-0); NEUTROPHILS ABSOLUTE MAN 6.31 K/mm3 (1.96-9.15); SEG NEUTROPHILS PERCENT MAN 56 % (41-73); TOTAL CELLS COUNTED 100
--- NOTE | 2019-09-13 05:40 | NUR ---
EEG ASSOCIATE WEB DEVELOPER IN ROOM AT THIS TIME.
--- NOTE | 2019-09-13 05:50 | NUR ---
SHIFT SUMMARY NO ACUTE CHANGES DURING NOC. REMAINS INTUBATED- AC 14, TV 500, PEEP 5, FIO2 30%. RR 14-20s. CONTINUES WITH THICK SECRETIONS ORALLY AND FROM ETT. MONITOR SHOWS NSR-ST, RATE 90-100s. BP STABLE. TMAX 99.1F VIA KAPOOR TEMP PROBE. SEDATED WITH PROPOFOL @ 45MCG/KG/MIN. WITHDRAWS ALL EXTREMITES TO STIMULI. BILATERAL SOFT WRIST RESTRAINTS TO PREVENT SELF-EXTUBATION. OG TO LIS WITH LIQUID BROWN STOOL. NO STOOL DURING SHIFT. KAPOOR PATENT AND DRAINING CLEAR YELLOW URINE. PAS TO BLE. SKIN ASSESSMENT UNCHANGED. NO S/S OF BLEEDING DURING SHIFT. LR INFUSING @ 100CC/HR. EEG BEING DONE AT THIS TIME. WILL REPORT TO DAY SHIFT RN WHEN AVAILABLE.
--- NOTE | 2019-09-13 09:52 | NUR ---
0730- CARE ASSUMED FOR PT. PT RESTING WITH EYES CLOSED, ASSESSMENT COMPLETED, VENT CONTINUES AT CURRENT SETTINGS, VERBAL EDUCATION R/T ORIENTATION AND ACTIVITIES PROVIDED BY RN. SEDATION VACATION GIVEN AND PT MORE ALERT SHOWN BY OPENING EYES, MOVING FEET & LEGS, BUT DID NOT FOLLOW COMMANDS OR FOLLOW NURSE WITH EYES. EYES WERE MORE FORWARD FOCUSED AND PT BREATHING OVER VENT SO SEDATION RESTARTED AT SAME RATE.
--- NOTE | 2019-09-13 11:00 | NUR ---
PICC LINE WAS PULLED 4CM LINE BY GUEVARA PICC RN, PER DR CLAUDINE ORNELAS.
--- NOTE | 2019-09-13 15:18 | NUR ---
PT CARES DONE WITH TURNS Q2HRS, DRSG CHANGES DONE NEEDED.
--- NOTE | 2019-09-13 15:25 | NUR ---
HEART TONES DIMINISHED
--- NOTE | 2019-09-13 18:37 | NUR ---
SHIFT SUMMARY- PT IS CURRENTLY ON SPONTANEOUS BREATHING TRIALS TOLERATING WELL WITH THESE SETTINGS 27/03. LR AND PROPOFOL STOPPED AT 1030. WHILE PT WAS IN AC PT WAS TOLERATING OFF SEDATION FOR FOUR HOURS BEFORE SWITCHING TO PRESSURE SUPPORT. PT NOTED TO HAVE DECORICATE POSTURING WITH STIMULATION/TURNS. DISCUSSED POSTURING WITH DOCTOR CHOW- DR TO ROOM TO EVALUATE PT. DR CHOW DOES NOT WANT SEDATION RESTARTED BUT TO CONTINUE WITH PRESSURE SUPPORT LONG PT ABLE TO TOLERATE. DR AWARE OF INCREASED HR AND B/P AND NEW ORDERS RECEIVED. TUBE FEEDINGS STARTED WITH HVP- NOW AT GOAL RATE OF 30ML/HR. PT DOES NOT TRACK OR FOLLOW COMMANDS, STARES AT CEILING OR STRAIGHT AHEAD. PT HAS INCREASED ORAL SECRETIONS THAN ET SECRETIONS. PT GIVEN ONE TIME DOSE OF LASIX AND HAD VERY GOOD OUTPUT OF CLEAR YELLOW URINE. NO BM TODAY.
--- NOTE | 2019-09-13 20:30 | NUR ---
INITIAL ASSESSMENT PATIENT VERY AGITATED, TACHYCARDIC, TACHYPNEIC, HYPERTENSIVE SHORTLY AFTER FIRST ARRIVING ON SHIFT. NURSE TRIED TO CALM PATIENT WITH VOICE AND REASSURANCE. PATIENT SBP INCREASED UP TO 160S TO 170S, HR INCREASED UP TO 150S TO 160S, AND RRS INCREASED UP TO 40S TO 50S. PATIENT COUGHING ON VENTILATOR AND FACIAL EXPRESSION APPEARED CONCERNED. PATIENT RESTARTED ON PROPOFOL AT 20 MCG/ KG/ MINUTE. NOW PATIENT RESTING QUIETLY IN BED AND APPEARS MUCH MORE COMFORTABLE. PATIENT REMAINS RESPONSIVE TO NURSING CARE/ TOUCH. PATIENT LOCALIZING MOVEMENT TO BILAT FEET WHEN NURSE TOUCHES THEM. NO MOVEMENTS IN ARMS NOTED TO PAINFUL STIMULI. PATIENT GRIMACES SLIGHTLY WITH ORAL/ FACIAL CARE. EYE OPENING SPONTANEOUS. PATIENT DOES NOT TRACK. PUPILS 3+ AND REACT BRISKLY TO LIGHT. DOLLS EYES +. STARTLE REFLEX NOTED. COUGH AND GAG REFLEXES INTACT. PATIENT HAS NO SIGNS OF PAIN OR DISCOMFORT AT THIS TIME. PATIENT CURRENTLY HAS TEMP OF 101.1 DEGREES FAHRENHEIT. RHONCHI AUSCULTATED IN UPPER LUNGS LOBES. LOWER LUNG LOBES DIMINISHED. MODERATE AMOUNT OF THIN, CLEAR SECRETIONS BEING SUCTIONED FROM ETT. PATIENT ON SPONTANEOUS PRESSURE SUPPORT VENT SETTINGS OF 15/5, 30% FIO2 WHEN FIRST ARRIVED ON SHIFT. PATIENT PLACED ON AC 14, TV 500, PEEP 5, AND 30% FIO2 WHEN RESTARTED ON SEDATION. PATIENT IN ST, HR NOW IN THE 130S. SBP NOW IN THE 1-TEENS. PULSES STRONG. SCDS IN PLACE. 2+ EDEMA NOTED IN BILAT HANDS. 1+ EDEMA NOTED IN R ARM. ABDOMEN MODERATELY DISTENDED, SOFT, WITH HYPOACTIVE BS. OG IN PLACE. VITAL HIGH PROTEIN TF INFUSING AT GOAL RATE OF 30 MLS/ HOUR WITH 30 ML WATER FLUSH Q4H. RESIDUAL OF 85 MLS OBTAINED AND REINSTILLED. TEMP PROBE KAPOOR IN PLACE DRAINING CLEAR, YELLOW URINE. SKIN IS DRY AND PEELING. EXCORIATIONS NOTED T/O BODY BUT THE WORST ON RITU/ GROIN AREAS. NS INFUSING TKO. BED LOW, CALL LIGHT IN REACH. WILL CONTINUE TO MONITOR PATIENT FREQUENTLY THROUGHOUT SHIFT.
--- NOTE | 2019-09-14 | NUR ---
PATIENT RESTING QUIETLY UPON ENTERING ROOM. PATIENT REMAINS RESPONDING TO NURSING CARE. PATIENT REMAINS ONLY LOCALIZING MOVEMENTS TO FEET AND HEAD. NO CHANGES IN NEURO STATUS FROM INITIAL ASSESSMENT. PATIENT HAS NO SIGNS OF PAIN OR DISCOMFORT AT THIS TIME. PATIENT HAS TEMP OF 101.4 DEGREES FAHRENHEIT. PATIENT GIVEN PRN TYLENOL FOR FEVER. PATIENT REMAINS SATTING 90% AND GREATER ON SAME AC SETTINGS. LUNGS CLEAR IN UPPER LOBES AND DIMINISHED IN LOWER LOBES. SMALL AMOUNT OF THIN, CLEAR SECRETIONS BEING SUCTIONED FROM ETT. PATIENT REMAINS IN ST. HR 1-TEENS TO 120S. SBP IN THE 1-TEENS. TF RESIDUAL OF ZERO. BLOOD SUGAR 103. NO OTHER ACUTE CHANGES TO NOTE ON AT THIS TIME. WILL CONTINUE TO MONITOR.
--- NOTE | 2019-09-14 04:00 | NUR ---
NEURO STATUS REMAINS UNCHANGED. PATIENT HAS TEMP OF 100.4 DEGREES FAHRENHEIT. NO SIGNS OF PAIN OR DISCOMFORT AT THIS TIME. PATIENT REMAINS SATTING 90% AND GREATER ON SAME VENT SETTINGS. PATIENT REMAINS IN ST, HR 110 TO 1-TEENS. SBP IN THE 130S. TF RESIDUAL OF 15 MLS OBTAINED AND REINSTILLED. NO OTHER ACUTE CHANGES TO NOTE ON AT THIS TIME. WILL CONTINUE TO MONITOR.
[2019-09-14 04:42] LABS: Hematocrit 22.5 % (37.0-53.0); Hemoglobin 7.4 g/dL (13.5-17.5); Mean Corpuscular HGB 31.9 pg (26.0-34.0); Mean Corpuscular HGB Conc 32.9 g/dL (31.5-36.5); Mean Corpuscular Volume 97 fL (80-100); Mean Platelet Volume 9.6 fL (9.1-12.4); NRBC ABSOLUTE 0.03 K/mm3 (0.00-0.02); NRBC Auto 0.3 /100 WBC (0.0-0.2); Platelet Count 423 K/mm3 (150-400); RDW Coefficient Variation 15.7 % (11.7-14.2); RDW Standard Deviation 55.1 fL (35.1-46.3); Red Blood Cell Count 2.32 M/mm3 (4.30-5.90); White Blood Cell Count 9.88 K/mm3 (4.00-11.30)
[2019-09-14 04:57] LABS: Anion Gap 6 mmol/L (6-16); Blood Urea Nitrogen 16 mg/dL (8-24); Bun/Creatinine Ratio 16.4 (12.0-20.0); CO2, Blood 28 mmol/L (21-32); Calcium, Blood 7.5 mg/dL (8.5-10.1); Chloride, Blood 114 mmol/L (98-108); Creatinine, Blood 0.98 mg/dL (0.60-1.20); Glomerular Filtration Rate >60 (60-); Glucose, Blood 95 mg/dL (70-99); Magnesium, Blood 1.4 mg/dL (1.6-2.4); Phosphorus, Blood 4.2 mg/dL (2.5-4.9); Potassium, Blood 2.9 mmol/L (3.5-5.5); Sodium, Blood 148 mmol/L (136-145)
[2019-09-14 05:01] LABS: PO2 Arterial 70.6 mmHg (80-100)
--- NOTE | 2019-09-14 05:20 | NUR ---
DR. CHOW CALLED AND INFORMED OF SODIUM OF 148, POTASSIUM OF 2.9, MAG OF 1.4. STATED TO USE ELECTROLYTE PROTOCOL ORDER. DOCTOR ALSO INFORMED THAT H&H DECREASED FROM 9.5 AND 28.7 TO 7.4 AND 22.5 THIS AM. NO ORDER RECEIVED FOR H&H LEVELS.
[2019-09-14 05:33] LABS: BAND PERCENT MAN 5 % (0-8); BASOPHILS PERCENT MAN 0 % (0-2); EOSINOPHILS ABSOLUTE MAN 0.09 K/mm3 (0.00-0.68); EOSINOPHILS PERCENT MAN 1 % (0-6); LYMPHOCYTES ABSOLUTE MAN 1.38 K/mm3 (0.84-5.20); LYMPHOCYTES PERCENT MAN 14 % (21-46); METAMYELOCYTE ABSOLUTE MAN 0.29 K/mm3 (0.00-0.00); METAMYELOCYTE PERCENT MAN 3 % (0-0); MONOCYTES ABSOLUTE MAN 0.59 K/mm3 (0.16-1.47); MONOCYTES PERCENT MAN 6 % (4-13); MYELOCYTE ABSOLUTE MAN 0.39 K/mm3 (0.00-0.00); MYELOCYTE PERCENT MAN 4 % (0-0); NEUTROPHILS ABSOLUTE MAN 7.11 K/mm3 (1.96-9.15); SEG NEUTROPHILS PERCENT MAN 67 % (41-73); TOTAL CELLS COUNTED 100
--- NOTE | 2019-09-14 06:30 | NUR ---
SHIFT SUMMARY PATIENT REMAINED INTUBATED AND ON SEDATION T/O NIGHT. PATIENT CONTINUED TO RESPOND TO NURSING CARE BY MOVING HEAD, EYES AND BILAT FEET. PATIENT IS NOT TRACKING WITH EYES OR FOLLOWING ANY COMMANDS. PUPILS ARE REACTING BRISKLY TO LIGHT AND + DOLL'S EYES NOTED. STARTLE REFLEX, GAG AND COUGH INTACT. PATIENT HAD TMAX OF 102.2 DEGREES FAHRENHEIT. PATIENT CHANGED FROM SPONTANEOUS PS AT BEGINNING OF SHIFT TO AC SETTINGS AND HAS REMAINED SATTING 90% AND GREATER ON SAME SETTINGS OF AC 14, TV 500, PEEP 5, 30% FIO2. PATIENT REMAINED IN ST, HR 110 TO 160S. SBP 116 TO 170S. VHP TF REMAINED INFUSING AT GOAL RATE OF 30 MLS PER HOUR WITH 30 ML WATER FLUSH Q4H. RESIDUALS 0 TO 85 THIS SHIFT. PATIENT HAD TWO BMS THIS SHIFT. FIRST BM, BROWN AND LOOSE. SECOND BM, MEDIUM IN SIZE, MARK RED LIQUID AND BLACK JELLY. TEMP PROBE KAPOOR DRAINING CLEAR, YELLOW URINE. NO CHANGE IN SKIN. PATIENT HAD COMPLETE BED BATH THIS SHIFT. NS INFUSING TKO. PROPOFOL AT 15 MCG/ KG/ MINUTE, WHICH WAS STARTED AROUND 1999 FOR INCREASED PATIENT AGITATION, RRS, HR, BP AND COUGHING ON ETT. PATIENT CURRENTLY RECEIVING REPLACEMENTS FOR POTASSIUM OF 2.9 AND MAG OF 1.4 THIS AM. PATIENT HAS NO SIGNS OF PAIN OR DISCOMFORT AT THIS TIME. BED LOW, CALL LIGHT IN REACH. WILL CONTINUE TO MONITOR PATIENT FREQUENTLY UNTIL REPORT GIVEN TO ONCOMING DAY SHIFT NURSE SHORTLY.
--- NOTE | 2019-09-14 07:15 | NUR ---
BEGINNING OF SHIFT Assumed care at 0700. Bedside report received from Mya BRANHAM. Pt on 15 mcg/kg/min propofol. Pt laying in bed, eyes open. Does not track staff. Moves extremities and grimaces with painful stimulus. No posturing noted. Corneal reflex present. Cough and gag present. Doll eyes present. 7.5 cm ETT present, 25 cm at lip. Ventilator settings AC 14, vT 500, PEEP 5, FiO2 30%. RR 18-20. SpO2 90% or greater. Small amount of thin, white secretions suctioned from ETT. Mcclain catheter in place, draining clear, corey urine. No visitors present at bedside.
--- NOTE | 2019-09-14 09:01 | NUR ---
DR CHOW IN ROOM Notified provider that pt had liquid red BM this AM, with black gelatinous chunks. Discussed decrease in H&H. Will continue to closely reassess. Discussed ventilator on AC and propofol dosing. Provider stated to turn propofol off and keep pt on AC settings. Discussed fentanyl or ativan for agitation, no new orders at this time. Will notify provider if pt becomes agitated.
--- NOTE | 2019-09-14 10:15 | NUR ---
DR CHOW IN ROOM Propofol remains off. Provider changed ventilator settings, now AC 12, vT 400, PEEP 5, FiO2 30%.
--- NOTE | 2019-09-14 10:20 | NUR ---
DR GARZON IN ROOM - DR COPPOLA NOTIFIED Provider calls this RN in room because pt had large liquid red BM that saturated most of bed. This was not present when Dr Naylor in room 5 minutes prior. This RN called Dr Naylor into room. Provider requested Dr Coppola notified. Call placed to Dr Coppola by pharmacist in charge owner, Rosalba. Plan to start IV steroids and transfuse as needed. Provider stated rectal bleeding is expected due to ulcerative colitis and no additional intervention is needed from GI standpoint.
--- NOTE | 2019-09-14 10:43 | NUR ---
DR. COPPOLA CALL TO DR. COPPOLA REGARDING MARK BLOOD FROM RECTUM. DISCUSSED SCOPE FROM 2 DAYS AGO. AWAITING BIOPSY RESULTS AT THIS TIME TO DIAGNOSE OR RULE OUT CROHN'S DISEASE. AT THIS TIME GIVEN MARK BLEEDING, PLAN TO START SOLU-MEDROL IV. TRANSFUSE NEEDED. DR COPPOLA STATES PT WILL CONTINUE TO BLEED GIVEN THE ULCERS AND TO CONTINUE TO TRANSFUSE BLOOD PRODUCTS.
--- NOTE | 2019-09-14 11:00 | NUR ---
UPDATE Rectal tube inserted. Pt immediately had 500 mL of dark red/black liquid output into tube. Pt also had a large amount of dark red/black output around the tube, unmeasured. Dr Naylor aware.
[2019-09-14 11:01] LABS: Hematocrit 25.3 % (37.0-53.0); Hemoglobin 8.1 g/dL (13.5-17.5)
--- NOTE | 2019-09-14 11:58 | NUR ---
DR GARZON IN ROOM - DR COPPOLA NOTIFIED Provider calls this RN in room because pt had large liquid red BM that saturated most of bed. This was not present when Dr Naylro in room 5 minutes prior. This RN called Dr Naylor into room. Provider requested Dr Coppola notified. Call placed to Dr Coppola by propellant charge loader, Rosalba. Plan to start IV steroids and transfuse as needed. Provider stated rectal bleeding is expected due to ulcerative colitis and no additional intervention is needed from GI standpoint.
[2019-09-14 13:43] LABS: Hemoglobin 7.7 g/dL (13.5-17.5)
[2019-09-14 13:48] LABS: Magnesium, Blood 2.2 mg/dL (1.6-2.4); Potassium, Blood 3.9 mmol/L (3.5-5.5)
--- NOTE | 2019-09-14 14:30 | NUR ---
UPDATE Pt agitated. Coughing, tachypnic, pulling on restraints with both arms. This RN notified Dr Naylor. Pt remains off propofol. Vent settings changed to pressure support 10/17. Tidal volumes consistently 350-450 mL. RR 28-32. SpO2 90% or greater.
--- NOTE | 2019-09-14 20:11 | NUR ---
DR. CHOW NOTIFIED: PT TRACKING, SMILING ON COMMAND, SQUEEZING HANDS. PT RESPONDED TO PAIN TO RITU AREA WHEN RITU CARE PROVIDED. FENTANYL 25mcg Q2' PRN ORDERED. VERBAL TO CONTINUE PROPOFOL IF NEED BUT PLACE PT BACK ON A/C VENT WHEN PROPOFOL STARTED.
[2019-09-15 03:37] LABS: BASOPHILS ABSOLUTE AUTO 0.02 K/mm3 (0.00-0.23); BASOPHILS PERCENT AUTO 0 % (0-2); EOSINOPHILS PERCENT AUTO 0 % (0-6); Hematocrit 19.7 % (37.0-53.0); Hemoglobin 6.3 g/dL (13.5-17.5); IMMATURE GRAN PERCENT AUTO 10 % (0-1); LYMPHOCYTES ABSOLUTE AUTO 1.71 K/mm3 (0.84-5.20); LYMPHOCYTES PERCENT AUTO 18 % (21-46); MONOCYTES ABSOLUTE AUTO 0.38 K/mm3 (0.16-1.47); MONOCYTES PERCENT AUTO 4 % (4-13); Mean Corpuscular HGB 31.5 pg (26.0-34.0); Mean Corpuscular Volume 99 fL (80-100); NEUTROPHILS ABSOLUTE AUTO 6.45 K/mm3 (1.96-9.15); NEUTROPHILS PERCENT AUTO 68 % (41-73); NRBC ABSOLUTE 0.02 K/mm3 (0.00-0.02); NRBC Auto 0.2 /100 WBC (0.0-0.2); Platelet Count 458 K/mm3 (150-400); RDW Coefficient Variation 15.3 % (11.7-14.2); RDW Standard Deviation 54.9 fL (35.1-46.3); White Blood Cell Count 9.46 K/mm3 (4.00-11.30)
[2019-09-15 03:51] LABS: Magnesium, Blood 1.9 mg/dL (1.6-2.4); Phosphorus, Blood 4.1 mg/dL (2.5-4.9)
[2019-09-15 04:05] LABS: BAND PERCENT MAN 3 % (0-8); BASOPHILS ABSOLUTE MAN 0.18 K/mm3 (0.00-0.23); BASOPHILS PERCENT MAN 2 % (0-2); EOSINOPHILS ABSOLUTE MAN 0.09 K/mm3 (0.00-0.68); EOSINOPHILS PERCENT MAN 1 % (0-6); LYMPHOCYTES ABSOLUTE MAN 1.79 K/mm3 (0.84-5.20); LYMPHOCYTES PERCENT MAN 19 % (21-46); METAMYELOCYTE ABSOLUTE MAN 0.18 K/mm3 (0.00-0.00); METAMYELOCYTE PERCENT MAN 2 % (0-0); MONOCYTES ABSOLUTE MAN 0.28 K/mm3 (0.16-1.47); MONOCYTES PERCENT MAN 3 % (4-13); MYELOCYTE ABSOLUTE MAN 0.18 K/mm3 (0.00-0.00); MYELOCYTE PERCENT MAN 2 % (0-0); NEUTROPHILS ABSOLUTE MAN 6.71 K/mm3 (1.96-9.15); SEG NEUTROPHILS PERCENT MAN 68 % (41-73); TOTAL CELLS COUNTED 100
[2019-09-15 05:06] LABS: PCO2 Arterial 35.5 mmHg (35-45); PO2 Arterial 66.1 mmHg (80-100); pH Blood Arterial 7.47 (7.35-7.45)
--- NOTE | 2019-09-15 06:42 | NUR ---
END OF SHIFT: PT REMAINED ON PROPOFOL WHILE ON A/C MODE T/O NOC. PT TOLERATED WELL. VSS. PT WOULD STILL OPEN EYES AND LOOK AT RN DURING ADL'S AND WEAKLY WOULD DISTRICT SALES COORDINATOR WITH HANDS. VENT SETTING: A/C 12, Vt 400, PEEP 5, FiO2 30%. PT WITH TWO MAROON/RED SMALL STOOLS-200cc MAROON/RED LIQUID OUT OF RECTAL TUBE. DR. CHOW NOTIFIED RE: H&H OF 6.3/ 19.7-NEW ORDER TO TRANSFUSE 1u PRBC NOW. PT TO BE OFF SEDATION AND PLACED BACK ON SPONTANEOUS DURING DAYS-WILL REPORT OFF TO DAY RN.
--- NOTE | 2019-09-15 07:35 | NUR ---
BEGINNING OF SHIFT Assumed care at 0700. Bedside report received from Karen BRANHAM. Pt on 35 mcg/kg/min propofol (dosing weight 72 kg). Pt laying in bed, eyes open, looking at staff. Ventilator settings AC 12/400/5/30%. Oral care performed, pt gagging with deep subglottic suctioning. Coughing noted. Propofol placed on standby. RT at bedside changed vent settings to PS 12/5, 30%. Tidal volumes consistently between 350 and 450. RR 24-28. SpO2 93%. Dr Naylor in room to see pt. Potential plan for extubation today. Vent settings changed to PS 7/5, 30% per Dr Naylor. Will continue to reassess.
--- NOTE | 2019-09-15 08:15 | NUR ---
UPDATE Dr Naylor in room. Pt tachypnic, rate 30-34. Provider changed vent settings to PS 12/5, FiO2 30%. Pt's RR decreased to 22-24. Pt is not following directions for provider. Propofol remains off.
--- NOTE | 2019-09-15 11:41 | NUR ---
UPDATE Pt still not following commands. When pt is asleep, RR decreases as slow as 12. SpO2 remains 90% or greater. Tidal volumes 400-500.
--- NOTE | 2019-09-15 13:45 | NUR ---
REPORT GIVEN TO ARGELIA BRANHAM
--- NOTE | 2019-09-15 14:06 | NUR ---
CARE ASSUMED CARE AND REPORT ASSUMED FROM OFELIA BRANHAM AT 1330. PT INTUBATED WITHOUT SEDATION AT THIS TIME. VSS. WILL CONTINUE TO MONITOR.
[2019-09-15 16:15] LABS: Hematocrit 22.9 % (37.0-53.0); Hemoglobin 7.4 g/dL (13.5-17.5)
--- NOTE | 2019-09-15 16:34 | NUR ---
REASSESSMENT PT REMAINS INTUBATED ON VENT PS 12/5, FIO2 30%. LUNG SOUNDS CLEAR AT THIS TIME. BUE RESTRAINED. PT STARING AND MOVING LEGS AROUND BUT IS NOT TRACKING AND NOT FOLLOWING COMMANDS. PROPOFOL GTT STARTED AT 20 MCG FOR SOME RELAXATION FOR PT. TOLERATING TF AT GOAL RATE WITH MINIMAL RESIDUAL. RITU CARE DONE, PT TURNED, AND HOB ELEVATED. H/H REDRAWN; RESULTS CALLED TO MD CHOW; NO NEW ORDERS. VSS. REMAINS IN NSR, HR 105. BP WNL. WILL CONTINUE TO MONITOR.
--- NOTE | 2019-09-15 17:32 | NUR ---
SHIFT SUMMARY PT INTUBATED AND PROPOFOL INFUSING AT 20 MCG. NSR, HR 90S. AFEBIRLE DURING SHIFT. TOLERATING TF AT GOAL RATE. SCOTUM ELEVATED WITH PILLOWCASE TO AID IN SKIN CARE. RECTAL TUBE OUTPUT WAS 700 ML RUNNING, BLACK STOOL. HOB ELEVATED AND PT TURNED Q2H. PT CONTINUES TO STARE AROUND BUT IS UNABLE TO FOLLOW ANY COMMANDS OR TRACK WITH EYES. VENT PS 12/5, FIO2 30%. BUE REMAIN RESTRAINED. WILL CONTINUE MONITORING AND GIVE BEDSIDE, HANDOFF REPORT TO NOC RN.
--- NOTE | 2019-09-15 21:32 | NUR ---
HYPOTENSIVE: DR. CHOW NOTIFIED RE: SUDDEN HYPOTENSION. PT WITH CONSISTANT BP 70'S/40'S MAPS 50'S. DR. CHOW UPDATED ON PT. NEW ORDERS FOR STAT H&H-CALL IF LESS THAN 7.0. GIVE ONE LITER LR NOW. CALL IF BP DOES NOT IMPROVE.
[2019-09-15 22:03] LABS: Hemoglobin 5.5 g/dL (13.5-17.5)
[2019-09-15 22:04] LABS: Hematocrit 17.6 % (37.0-53.0)
--- NOTE | 2019-09-15 22:08 | NUR ---
CRITICAL VALUE/DR. CHOW NOTIFIED: H&H CV CALLED FROM LAB 5.5/.6. DR. CHOW NOTIFIED AT 2205. NEW ORDERS TO TRANSFUSE TWO UNITS AT RATE OF 999 EACH THEN DO AN H&H.
--- NOTE | 2019-09-15 22:58 | NUR ---
UPDATE: AT TIME OF DR. CHOW NOTIFICATION, PT WITH GROSS AMOUNT OF MAROON LIQUID IN THE BED AND DRAINING INTO RECTAL TUBE. FIRST UNIT OF PRBC STARTED PER DR. ORNELAS. PT TURNED AND RECTAL TUBE BALOON DEFLATED AND BALOON REMOVED. SEVERAL LARGE BLOOD CLOTS AND MAROON LIQUID OUT OF RECTUM. PT RITU AREA CLEANSED WITH DRI-SALVADOR AND ATTENDS PLACED FOR FURTHER DRAINAGE. PROPOFOL RESTARTED AT 10mcg/kg/min FOR PT AGITATION. WILL CONTINUE TO MONITOR. ADMINISTER SECOND UNIT PRBC.
[2019-09-16 01:29] LABS: Hematocrit 24.2 % (37.0-53.0); Hemoglobin 7.9 g/dL (13.5-17.5)
--- NOTE | 2019-09-16 01:32 | NUR ---
PT BECOMING MORE AWAKE. PT TRACKING WHEN RN CLOSE. PT RECRUITER ACCOUNT MANAGER RIGHT HAND, AND IS MOVING BOTH LEGS. PT MORE STRONG ON RIGHT THAN LEFT. PROPOFOL HAS BEEN OFF DUE TO BLOOD PRESSURE. H&H POST BLOOD TRANSFUSION SENT WAITING RESULTS. WILL CALL DR. CHOW IF Hbg <7.
[2019-09-16 03:53] LABS: BASOPHILS ABSOLUTE AUTO 0.09 K/mm3 (0.00-0.23); BASOPHILS PERCENT AUTO 1 % (0-2); EOSINOPHILS ABSOLUTE AUTO 0.07 K/mm3 (0.00-0.68); EOSINOPHILS PERCENT AUTO 0 % (0-6); Hematocrit 23.7 % (37.0-53.0); Hemoglobin 7.8 g/dL (13.5-17.5); IMMATURE GRAN ABSOLUTE AUTO 2.21 K/mm3 (0.00-0.10); IMMATURE GRAN PERCENT AUTO 12 % (0-1); LYMPHOCYTES ABSOLUTE AUTO 3.63 K/mm3 (0.84-5.20); LYMPHOCYTES PERCENT AUTO 20 % (21-46); MONOCYTES PERCENT AUTO 9 % (4-13); Mean Corpuscular HGB 30.6 pg (26.0-34.0); Mean Corpuscular HGB Conc 32.9 g/dL (31.5-36.5); Mean Corpuscular Volume 93 fL (80-100); Mean Platelet Volume 9.8 fL (9.1-12.4); NEUTROPHILS ABSOLUTE AUTO 10.55 K/mm3 (1.96-9.15); NEUTROPHILS PERCENT AUTO 58 % (41-73); NRBC ABSOLUTE 0.15 K/mm3 (0.00-0.02); NRBC Auto 0.8 /100 WBC (0.0-0.2); Platelet Count 417 K/mm3 (150-400); RDW Coefficient Variation 15.4 % (11.7-14.2); Red Blood Cell Count 2.55 M/mm3 (4.30-5.90); White Blood Cell Count 18.25 K/mm3 (4.00-11.30)
[2019-09-16 04:09] LABS: BAND PERCENT MAN 6 % (0-8); BASOPHILS PERCENT MAN 0 % (0-2); EOSINOPHILS PERCENT MAN 0 % (0-6); LYMPHOCYTES PERCENT MAN 17 % (21-46); METAMYELOCYTE ABSOLUTE MAN 1.64 K/mm3 (0.00-0.00); METAMYELOCYTE PERCENT MAN 9 % (0-0); MONOCYTES ABSOLUTE MAN 0.73 K/mm3 (0.16-1.47); MONOCYTES PERCENT MAN 4 % (4-13); NEUTROPHILS ABSOLUTE MAN 12.77 K/mm3 (1.96-9.15); SEG NEUTROPHILS PERCENT MAN 64 % (41-73); TOTAL CELLS COUNTED 100
[2019-09-16 04:12] LABS: Alanine Aminotransfer (ALT/SGP 20 U/L (12-78); Albumin, Blood 1.2 g/dL (3.4-5.0); Albumin/Globulin Ratio 0.4 (0.8-1.8); Alk Phos 75 U/L (50-136); Anion Gap 7 mmol/L (6-16); Aspartate Aminotrans (AST/SGOT 40 U/L (12-37); Bilirubin, Direct 0.3 mg/dL (0.0-0.3); Bilirubin, Indirect 0.1 mg/dL (0.1-0.7); Bilirubin, Total 0.4 mg/dL (0.1-1.0); Blood Urea Nitrogen 29 mg/dL (8-24); Bun/Creatinine Ratio 26.9 (12.0-20.0); CO2, Blood 24 mmol/L (21-32); Calcium, Blood 7.5 mg/dL (8.5-10.1); Chloride, Blood 123 mmol/L (98-108); Creatinine, Blood 1.08 mg/dL (0.60-1.20); Glomerular Filtration Rate >60 (60-); Glucose, Blood 105 mg/dL (70-99); Magnesium, Blood 1.6 mg/dL (1.6-2.4); Phosphorus, Blood 4.3 mg/dL (2.5-4.9); Sodium, Blood 154 mmol/L (136-145); Total Protein, Blood 4.2 g/dL (6.4-8.2)
[2019-09-16 04:27] LABS: PCO2 Arterial 30.6 mmHg (35-45); PO2 Arterial 60.6 mmHg (80-100); pH Blood Arterial 7.48 (7.35-7.45)
--- NOTE | 2019-09-16 05:01 | NUR ---
XLARGE MAROON/RED CLOTTED STOOL. PT WITH INCREASED AGITATION TRYING TO SIT UP IN BED. HR 150'S. PT WITH MAROON/RED STOOL COVERING ENTIRE RITU AREA. RITU AREA CLEANSED, BARRIER CREAM APPLIED, LINEN CHANGED. BP STABLE. PROPOFOL RESTARTED FOR AGITATION. WILL CONTINUE TO MONITOR.
--- NOTE | 2019-09-16 05:47 | NUR ---
DR. CHOW NOTIFIED: RE: UPDATE POST TRANSFUSION AND XXLARGE MAROON/RED CLOTTED STOOL. POTASSIUM 3.0. NEW ORDERS TO TRANSFUSE 2 UNITS PRBC. REPLACE POTASSIUM C/ 20mEq IV. CONTACT DR. COPPOLA IN am AND UPDATE.
--- NOTE | 2019-09-16 08:00 | NUR ---
ASSUMED CARE: REPORT RECEIVED FROM FLORIDALMA Cadet RN. ASSUMED CARE OF THIS PT AT APPROX 0700. ON ASSESSMENT, THE PT REMAINS SEDATED & INTUBATED. SEDATION VACATION PERFORMED THIS AM & PT IS FOLLOWING COMMANDS & TRACKING W/ EYES INTERMITTENTLY. HE JALLOH, BUT MORE MOVEMENT IS NOTED ON PT's R SIDE. LS ARE CLEAR T/O, VENT SETTINGS: AC 12, TV 400, PEEP 5 & FIO2 30%. MONITOR SHOWS ST W/ HR 110s. BP STABLE, HYPOTENSION W/ SBP 90s NOTED AT TIMES. FOURTH UNIT OF PRBCs TRANSFUSING CURRENTLY. PT TOLERATING WELL. BT HYPOACTIVE W/ TUBE FEEDS INFUSING AT GOAL PER ORDERS, LOW RESIDUALS CHARTED. KAPOOR PATENT/ DRAINING. SKIN OVERALL IN POOR CONDITION, PLEASE SEE ASSESSMENT REGARDING DETAILS. WILL CONTINUE TO MONITOR & UPDATE NEEDED.
--- NOTE | 2019-09-16 09:40 | NUR ---
DR FERRER / DR GARZON: DR FERRER AT BEDSIDE TO EVAL PT. ORDERS FOR ELECTROLYTE REPLETION, FREE WATER FLUSH & F/U H&H CHECK HAVE BEEN ORDERED. SHE WOULD LIKE THIS RN TO PROVIDE DR COPPOLA W/ AN UPDATE ON THE PT's CONDITION & CONTINUED PASSING OF BLOOD CLOTS/ HEMODYNAMIC INSTABILITY T/O THE NIGHT. PT's VENT SETTINGS HAVE BEEN CHANGED TO SPONTANEOUS W/ PS [address] FERRER. HE IS TOLERATING THIS WELL W/ RR 12-25 & TV > 400. DR GARZON AT BEDSIDE. NO CHANGES AT THIS TIME, CONTINUE W/ POC PER HISTOTECHNOLOGIST SERVICE. WILL CONTINUE TO MONITOR & UPDATE NEEDED.
--- NOTE | 2019-09-16 12:37 | NUR ---
VISITOR: SOFIYA CASTRO, PT's FRIEND, IS AT BEDSIDE. SHE HAS REQUESTED TO SEE HIM & HAS NOT BEEN ALLOWED TO BY PRIOR STAFF MEMBERS ON INVESTMENT SPECIALIST. NO PATIENT INFO HAS BEEN PROVIDED TO THIS VISITOR. ONCE AT THE BEDSIDE, SHE IS KISSING ON THE PT & STATING THAT SHE LOVES HIM. SHE TELLS THIS RN THAT THEY HAVE BEEN "BEST FRIENDS" FOR 20 YRS & THAT SHE HAS NOT BEEN ABLE TO SEE HIM OTHERWISE SINCE ADMISSION BECAUSE SHE HAS BEEN IN [place]. SHE STS THAT SHE WOULD LIKE US TO CONTACT JESSICA DAN, THE PATIENT's SON. APPARENTLY THE PT & HIS SON HAVE BEEN ESTRANGED FOR APPROX 5 YEARS WHEN THE PT WENT TO [place] & JESSICA SOLD THE PT's HOME, LEAVING HIM HOMELESS. SOFIYA DOES NOT HAVE ANY WAY TO CONTACT JESSICA BUT SHE STS THAT HE LIVES IN [place] AND IS THE "PRESIDENT OF THE FIRST [employer]" IN [place]. THE VISITOR HAS LEFT UNEVENTFULLY & IS VERY THANKFUL TO STAFF FOR ALLOWING HER TO SEE THE PT BRIEFLY. CASE MANAGEMENT HAS BEEN NOTIFIED OF THIS UPDATE. THE VISITOR, SOFIYA, HAS LEFT HER MOTHER's PHONE NUMBER FOR US TO CONTACT HER IF NEEDED: .
[2019-09-16 12:44] LABS: Hematocrit 26.7 % (37.0-53.0); Hemoglobin 9.1 g/dL (13.5-17.5)
--- NOTE | 2019-09-16 15:48 | NUR ---
Clinical Visit; Pt looks better today than last week. He has his eyes open. His son, Philip, is at bedside. Philip is minimally interactive with me. He is not making eye contact and when I am describing his care, he is ignoring what I am saying. He continues talking with his dad, who is intubated and not responding to him. He is saying, "I'm not making these choices for you, I don't know what to do." and "Stop fucking doing drugs you stupid bastard." Attempted to re-engage with Philip. 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 Will follow up if needed. I would question Philip's decision making abilities, and do not think he would be willing to make decisions regarding goals or plan of care. No other concerns - besides Philip's ongoing appropriateness to be in the hospital setting. He made some very inappropriate comments directed toward me when I was in the room.
--- NOTE | 2019-09-16 15:56 | NUR ---
PT's SON, JESSICA: PT's SON IS AT BEDSIDE & HAS VERBALIZED THAT HE IS THE OLDEST CHILD, HE BELIEVES THE PT HAS "SOMETHING LIKE [address] FERRER HAS SPOKEN W/ JESSICA BRIEGLY REGARDING PT's WISHES & CURRENT CONDITION. HE DOES NOT SEEM TO GRASP FULLY WHAT HAS BEEN DISCUSSED HE CONTINUES TO ASK THE SAME QUESTIONS REPEATEDLY & ALSO STS "HE's JUST A REALLY BAD ALCOHOLIC" NUMEROUS TIMES. JESSICA THEN BEGAN TALKING TO THE PT & HAVING A CONVERSATION IF THE PT WAS RESPONDING. HE THEN BECAME SOMEWHAT ANGRY & WAS BEATING ON HIS OWN CHEST WHILE TALKING TO THE PT SAYING THINGS LIKE "IF THIS IS HOW YOU WANT TO , HOOKED TO ALL THESE MACHINES THEN FINE, THAT IS ON YOU!" HE THEN PROCEEDED TO ADJUST THE PT's PILLOW IN A MANNER THAT WAS QUITE AGRESSIVE. THIS RN REQUESTED THAT HE PLEASE ONLY TOUCH THE PT CAREFULLY THE ETT & OTHER CORDS COULD BE PULLED OUT OTHERWISE. HE IS AGREEABLE TO THIS & STS THAT HE IS "SORRY." ÁNGEL Lynn, PALLIATIVE CARE, HAS BEEN TO DISCUSS ADVANCED CARE PLANNING W/ JESSICA & HAS GOTTEN LITTLE INFORMATION, SEE NOTE. WILL CONTINUE TO MONITOR & UPDATE NEEDED.
[2019-09-16 17:18] LABS: Hematocrit 25.8 % (37.0-53.0); Hemoglobin 8.9 g/dL (13.5-17.5)
[2019-09-16 18:05] LABS: Anion Gap 5 mmol/L (6-16); Blood Urea Nitrogen 29 mg/dL (8-24); Bun/Creatinine Ratio 26.4 (12.0-20.0); CO2, Blood 23 mmol/L (21-32); Calcium, Blood 7.8 mg/dL (8.5-10.1); Chloride, Blood 124 mmol/L (98-108); Glomerular Filtration Rate >60 (60-); Glucose, Blood 122 mg/dL (70-99); Magnesium, Blood 1.9 mg/dL (1.6-2.4); Phosphorus, Blood 3.9 mg/dL (2.5-4.9); Potassium, Blood 4.4 mmol/L (3.5-5.5); Sodium, Blood 152 mmol/L (136-145)
--- NOTE | 2019-09-16 18:28 | NUR ---
DR FERRER: CALL TO PROVIDER REGARDING PT's NEW COARSENESS ON AUSCULTATION OF LUNGS. LS ARE NOW COARSE T/O, MORE SO IN UPPER LOBES. BP HAS BEEN STABLE & PT's FLUID BALANCE IS POSITIVE BY APPROX 1.7 LITERS. ORDERS FOR ONE TIME DOSE LASIX PLACED. ELECTROLYTE VALUES FROM F/U LAB DRAW HAVE ALSO BEEN DISCUSSED & ORDERS FOR MAGNESIUM REPLETION ALSO PLACED. WILL CONTINUE TO MONITOR & UPDATE NEEDED.
--- NOTE | 2019-09-16 19:30 | NUR ---
SHIFT SUMMARY: NO ACUTE CHANGES SINCE PRIOR UPDATES. PT CONTINUES TO BE ALERT INTERMITTENTLY, FOLLOWING COMMANDS & TRACKING W/ EYES. LS REMAIN COARSE W/ LASIX TO BE GIVEN PER EMAR. O2 SATS > 92%. MONITOR SHOWS ST W/ HR 100s. BP STABLE. RECTAL TUBE REMAINS PATENT & DRAINING DARK MAROON LIQUID STLS. TUBE FEEDS INFUSING AT GOAL RATE W/ LOW RESIDUALS. KAOPOR PATENT/ DRAINING DARK YELLOW URINE. SKIN REMAINS EXCORIATED T/O, BARRIER CREAM APPLIED TO RITU AREA. WILL CONTINUE TO MONITOR & REPORT OFF TO ONCOMING RN.
--- NOTE | 2019-09-16 20:49 | NUR ---
ASSUMPTION OF CARE RECEIVED REPORT FROM AMARILIS RN @ 8194. PT IS FULL CODE. PATIENT IS RESTING QUIET. WILL OPEN EYES ON OCCASSION AND TRACK STAFF AND RESPOND TO DISCOMFORT. HR CONTINUES TO BE OVER 100. ON VENT WITH SETTINGS 12/400/5/30%. 25CM AT LIP WITH ETT @7.5CM. CONTINUOUS TUBE FEED @30ML/HR (GOAL). PROPOFOL AT START OF SHIFT WAS 30MCG/MIN, INCREASED TO 35MCG/MIN. PICC LINE FLUSHED W/20ML NS AND IS PATENT. PICC MEASURED AT 8CM, DRESSING C/D/I KAPOOR IS PATENT, DRAINING, AND INTACT. RECTAL TUBE IS PATENT, DRAINING, AND INTACT. RIGHT TWO ABD QUADS ACTIVE, LEFT TWO ARE HYPOACTIVE. WILL CONTINUE TO MONITOR AND CARE FOR PATIENT. DIANE FERMIN
--- NOTE | 2019-09-16 21:33 | NUR ---
ASSUMPTION OF CARE RECEIVED REPORT FROM AMARILIS RN @4774. PT IS FULL CODE. PT IS RESTING QUIET. WILL OPEN EYES ON OCCASSION AND TRACT STAFF AND RESPOND TO DISCOMFORT. HR CONTNUES TO BE OVER 100. ON VENT WITH SETTINGS 12/400/5/30%. 25CM AT LIP WITH ETT @ 7.5CM. CONTINUOUS FEED AT GOAL (30ML/HR). PROPOFOL AT START OF SHIFT 30MCG/MIN INCREASED TO 35MCG/MIN DUE TO PATIENT DISCOMFORT. PICC LINE FLUSHED W/20ML NS AND IS PATENT. DRESSING C/D/I. PATENT IS KAPOOR, DRAINING, AND INTACT. RECTAL TUBE DRAINING VERY DARK FLUID, PATENT, AND INTACT. RIGHT TWO ABD HYPOACTIVE, LEFT TWO ACTIVE. WILL CONTINUE TO MONITOR AND CARE FOR PATIENT DIANE WEBBER
[2019-09-16 22:35] LABS: BASOPHILS ABSOLUTE AUTO 0.09 K/mm3 (0.00-0.23); BASOPHILS PERCENT AUTO 0 % (0-2); EOSINOPHILS ABSOLUTE AUTO 0.06 K/mm3 (0.00-0.68); EOSINOPHILS PERCENT AUTO 0 % (0-6); Hematocrit 20.7 % (37.0-53.0); IMMATURE GRAN ABSOLUTE AUTO 2.61 K/mm3 (0.00-0.10); IMMATURE GRAN PERCENT AUTO 13 % (0-1); LYMPHOCYTES ABSOLUTE AUTO 3.91 K/mm3 (0.84-5.20); LYMPHOCYTES PERCENT AUTO 19 % (21-46); MONOCYTES ABSOLUTE AUTO 1.49 K/mm3 (0.16-1.47); MONOCYTES PERCENT AUTO 7 % (4-13); Mean Corpuscular HGB 31.3 pg (26.0-34.0); Mean Corpuscular HGB Conc 33.8 g/dL (31.5-36.5); Mean Corpuscular Volume 92 fL (80-100); Mean Platelet Volume 10.2 fL (9.1-12.4); NEUTROPHILS ABSOLUTE AUTO 12.03 K/mm3 (1.96-9.15); NEUTROPHILS PERCENT AUTO 60 % (41-73); NRBC ABSOLUTE 0.65 K/mm3 (0.00-0.02); NRBC Auto 3.2 /100 WBC (0.0-0.2); Platelet Count 380 K/mm3 (150-400); RDW Coefficient Variation 16.5 % (11.7-14.2); RDW Standard Deviation 52.8 fL (35.1-46.3); Red Blood Cell Count 2.24 M/mm3 (4.30-5.90); White Blood Cell Count 20.19 K/mm3 (4.00-11.30)
[2019-09-16 22:48] LABS: International Normalized Ratio 1.19; Prothrombin Time Results 12.4 Sec (9.7-11.5)
[2019-09-16 22:52] LABS: BAND PERCENT MAN 4 % (0-8); BASOPHILS PERCENT MAN 0 % (0-2); EOSINOPHILS PERCENT MAN 0 % (0-6); LYMPHOCYTES ABSOLUTE MAN 2.22 K/mm3 (0.84-5.20); LYMPHOCYTES PERCENT MAN 11 % (21-46); METAMYELOCYTE ABSOLUTE MAN 1.41 K/mm3 (0.00-0.00); METAMYELOCYTE PERCENT MAN 7 % (0-0); MONOCYTES PERCENT MAN 5 % (4-13); NEUTROPHILS ABSOLUTE MAN 15.54 K/mm3 (1.96-9.15); SEG NEUTROPHILS PERCENT MAN 73 % (41-73); TOTAL CELLS COUNTED 100
[2019-09-17 03:53] LABS: Hematocrit 25.6 % (37.0-53.0); Hemoglobin 8.7 g/dL (13.5-17.5); Mean Corpuscular HGB 30.2 pg (26.0-34.0); Mean Platelet Volume 10.4 fL (9.1-12.4); NRBC ABSOLUTE 1.12 K/mm3 (0.00-0.02); NRBC Auto 4.6 /100 WBC (0.0-0.2); Platelet Count 319 K/mm3 (150-400); RDW Coefficient Variation 14.8 % (11.7-14.2); RDW Standard Deviation 46.5 fL (35.1-46.3); Red Blood Cell Count 2.88 M/mm3 (4.30-5.90)
[2019-09-17 03:54] LABS: BASOPHILS PERCENT AUTO 0 % (0-2); EOSINOPHILS ABSOLUTE AUTO 0.02 K/mm3 (0.00-0.68); EOSINOPHILS PERCENT AUTO 0 % (0-6); IMMATURE GRAN ABSOLUTE AUTO 3.51 K/mm3 (0.00-0.10); IMMATURE GRAN PERCENT AUTO 14 % (0-1); LYMPHOCYTES ABSOLUTE AUTO 4.85 K/mm3 (0.84-5.20); LYMPHOCYTES PERCENT AUTO 20 % (21-46); MONOCYTES ABSOLUTE AUTO 1.75 K/mm3 (0.16-1.47); MONOCYTES PERCENT AUTO 7 % (4-13); Mean Corpuscular Volume 89 fL (80-100); NEUTROPHILS ABSOLUTE AUTO 14.37 K/mm3 (1.96-9.15); NEUTROPHILS PERCENT AUTO 58 % (41-73)
[2019-09-17 04:08] LABS: International Normalized Ratio 1.2; Prothrombin Time Results 12.5 Sec (9.7-11.5)
[2019-09-17 04:10] LABS: BAND PERCENT MAN 3 % (0-8); BASOPHILS PERCENT MAN 0 % (0-2); EOSINOPHILS PERCENT MAN 0 % (0-6); LYMPHOCYTES ABSOLUTE MAN 1.72 K/mm3 (0.84-5.20); LYMPHOCYTES PERCENT MAN 7 % (21-46); METAMYELOCYTE ABSOLUTE MAN 1.47 K/mm3 (0.00-0.00); METAMYELOCYTE PERCENT MAN 6 % (0-0); MONOCYTES ABSOLUTE MAN 0.24 K/mm3 (0.16-1.47); MONOCYTES PERCENT MAN 1 % (4-13); NEUTROPHILS ABSOLUTE MAN 21.15 K/mm3 (1.96-9.15); SEG NEUTROPHILS PERCENT MAN 83 % (41-73); TOTAL CELLS COUNTED 100
[2019-09-17 04:16] LABS: Alanine Aminotransfer (ALT/SGP 33 U/L (12-78); Albumin, Blood 1.2 g/dL (3.4-5.0); Albumin/Globulin Ratio 0.5 (0.8-1.8); Alk Phos 68 U/L (50-136); Anion Gap 5 mmol/L (6-16); Aspartate Aminotrans (AST/SGOT 52 U/L (12-37); Bilirubin, Total 1.1 mg/dL (0.1-1.0); Blood Urea Nitrogen 38 mg/dL (8-24); Bun/Creatinine Ratio 30.4 (12.0-20.0); CO2, Blood 22 mmol/L (21-32); Calcium, Blood 7.3 mg/dL (8.5-10.1); Chloride, Blood 125 mmol/L (98-108); Creatinine, Blood 1.25 mg/dL (0.60-1.20); Globulin, Blood 2.6 g/dL (2.2-4.0); Glomerular Filtration Rate >60 (60-); Glucose, Blood 147 mg/dL (70-99); Magnesium, Blood 1.9 mg/dL (1.6-2.4); Phosphorus, Blood 5.3 mg/dL (2.5-4.9); Potassium, Blood 4.3 mmol/L (3.5-5.5); Sodium, Blood 152 mmol/L (136-145); Total Protein, Blood 3.8 g/dL (6.4-8.2)
--- NOTE | 2019-09-17 06:11 | NUR ---
PICC LINE LEFT ARM @ 4CM IS PATENT, DRESSING C/D/I. PATIENT ON VENT WITH SETTINGS OF 12/400/5/30% THROUGHOUT SHIFT. ETT @ 7.5CM, 25 AT TEETH. PROPOFOL TITRATED BETWEEN 30-45MCG/MIN THROUGHOUT SHIFT, RELATED TO INCREASE IN RESTLESSNESS AND BREATH STACKING. PATIENT CONTINUES TO OCCASSIONALLY OPEN EYES SPONTANEOUSLY, BUT DOES NOT TRACK OR FOLLOW COMMANDS. AT APPROXIMATELY 2200 PATIENT HAD AN EXTRA LARGE BLOODY BOWEL MOVEMENT W/LARGE CLOTS. BP WENT FROM SYSTOLIC 120S TO THE 70S. DR FERRER CONTACTED @2200 AND GAVE AN ORDER FOR STAT CBC, PT, INR, AND 2 PRBC FOR TRANSFUSION. AN ORDER OF LEVOPHED WAS PLACED ON ORDER. LEVOPHED TITRATED TO 2MCG. AFTER PRBC AND LEVOPHED THE PATIENT'S BP STABALIZED. LEVOPHED PLACED ON STANDBY @ APPROX. 0400. @2230 THE RECTAL TUBE WAS REMOVED DUE TO BEING NON-PATENT. AT 2230 H AND H WAS 7.0 AND 20.7, RESPECTIVELY. @ 0340 LABS DRAWN AND H AND H ARE 8.7 AND 25.6. PATENT KAPOOR, INTACT, CLEAR YELLOW URINE 300ML DURING SHIFT. PATIENT HAD A FURTHER 3 LARGE BLOODY CLOTTY BOWEL MOVEMENTS. VITALS REMAIN STABLE AT THIS TIME. WILL CONTINUE TO MONITOR PATIENT. DIANE FERMIN
--- NOTE | 2019-09-17 08:10 | NUR ---
ASSUMED CARE: REPORT RECEIVED FROM MIGUELANGEL Garcia RN. ASSUMED CARE OF THIS PT AT APPROX 0700. ON ASSESSMENT, THE PT REMAINS SEDATED/ INTUBATED. SEDATION VACATION PERFORMED THIS AM & PT AWAKENS EASILY. EYES OPEN SPONTANEOUSLY, MINIMAL TRACKING NOTED, PT UNABLE TO FOLLOW DIRECTION THIS AM. SPONTANEOUSLY MOVING R SIDE EXTREMITIES MORE THAN L SIDE. LS ARE COARSE T/O, VENT SETTINGS: AC 12, TV 400, PEEP 5 & FIO2 30%. O2 SATS > 92%. MONITOR SHOWS SR-ST W/ HR 90-100s. BP LABILE, HYPOTENSION W/ SBP 90s NOTED AT TIMES. PT CONTINUES HAVING COPIOUS AMNTS OF MAROON STLS W/ CLOTS OUT. KAPOOR PATENT/ DRAINING. SKIN OVERALL IN POOR CONDITION, BARRIER CREAM APPLIED TO RITU AREA. WILL CONTINUE TO MONITOR & UPDATE NEEDED.
--- NOTE | 2019-09-17 09:36 | NUR ---
DR FERRER: PROVIDER AT BEDSIDE TO EVAL PT. SHE WOULD LIKE A CTA TO BE COMPLETED ONCE PT HAS AN EPISODE OF BLEEDING AGAIN. ETHICS CONSULT ORDER TO BE PLACED & DR ASENCIO TO BE CONSULTED FOLLOWING CTA TO SEE IF ANY EMBOLISATION WOULD BE BENEFICIAL TO THE PT. WILL CONTINUE TO MONITOR & UPDATE NEEDED.
[2019-09-17 12:21] LABS: Hematocrit 23.7 % (37.0-53.0); Hemoglobin 8.2 g/dL (13.5-17.5)
[2019-09-17 12:28] LABS: Magnesium, Blood 1.8 mg/dL (1.6-2.4)
--- NOTE | 2019-09-17 13:48 | NUR ---
UPDATE: PT HAS BEEN ON SBT SINCE APPROX 0915 THIS AM. HE HAS BEGUN TO DO POORLY W/ INCREASED RR & AGITATION. PT ALSO HAS BEGUN TO TAKE IN POOR TVs. DR FERRER NOTIFIED BY RT LAURYN. SHE STS THAT SHE WOULD LIKE THE PT TO REMAIN ON SBT UNLESS HE BEGINS TO DESATURATE OR SUSTAIN RR > 65 BPM. PRIOR AC VENT SETTINGS RESUMED AT APPROX 1340 PT IS NOW MAINTAINING RR > 35 IN ADDITION TO TV < 300 CONSISTENTLY. WILL CONTINUE TO MONITOR & UPDATE NEEDED.
--- NOTE | 2019-09-17 17:00 | NUR ---
DR FERRER / DR COPPOLA: CALL FROM DR FERRER TO REQUEST UPDATE ON PT's STATUS. NOTIFIED HER OF PT's NOW CONTINUED LOW BP READINGS W/ MAP < 60 AT THIS TIME. SHE STS TO CHECK A STAT H&H & TRANSFUSE W/ 2 UNITS PRBCs TO KEEP HGB > 8. DR COPPOLA AT BEDSIDE TO EVAL PT, STS THERE IS NOT MUCH THAT CAN BE DONE AT THIS TIME EXCEPT TO TRANSFUSE THE PT PRN. CTA ABD & PELVIS WAS NEGATIVE. WILL CONTINUE TO MONITOR & UPDATE NEEDED.
[2019-09-17 17:34] LABS: Hematocrit 19.6 % (37.0-53.0); Hemoglobin 6.8 g/dL (13.5-17.5)
--- NOTE | 2019-09-17 18:21 | NUR ---
Spiritual Care routine visit: Mr. Muse was alone in room. He appears weak and restless. He opened one eye to voice/touch and looked at me briefly. I stroked his forhead and provided a presence of love. I will remain available.
--- NOTE | 2019-09-17 19:33 | NUR ---
SHIFT SUMMARY: PT REMAINS SEDATED/ INTUBATED. PRECEDEX NOW IN USE A SEDATION ADJUNCT W/ ANTICIPATION OF DECREASING RATE OF PROPOFOL. LS COARSE T/O & VENT SETTINGS UNCHANGED. SUCTIONING UP SMALL AMNT THICK GONZALEZ SPUTUM THROUGH ETT & COPIOUS AMNTS OF ORAL SECRETIONS. MONITOR SHOWS SR W/ HR 80s, BP IMPROVED W/ CURRENT PRBC ADMIN & LEVOPHED CHARTED. PT HAS HAD ONE LARGE LOOSE MAROON BM THIS AFTERNOON, LARGE BLACK CLOTS NOTED. KAPOOR REMAINS PATENT/ DRAINING. REPORT HAS BEEN GIVEN TO FELECIA Lynn RN TO ASSUME CARE.
--- NOTE | 2019-09-17 21:39 | NUR ---
ASSUMED CARE OF PT, REPORT RCV'D FROM CARROL FAM. PT INTUBATED AND SEDATED. VENT SETTINGS AC 12/400/5/30%. PT SEDATED ON PROPOFOL 35 MCG/KG/MIN AND PRECEDEX 0.4 MCG/KG/HR. LEVOPHED GTT ON AT 2 MCG/MIN TO CORRECT HYPOTENSION. PT RECEIVING UNIT 2 OF 2 PRBC'S. PT OPENS EYES TO VERBAL STIMULUS BUT FAILS TO FOLLOW COMMANDS OR SHOW PURPOSEFUL MOVEMENT. PT'S RIGHT PUPIL 3 MM AND SLUGGISH, LEFT PUPIL 3 MM AND BRISK. PT GRIMACES WITH REPOSITIONING AND ORAL CARE. WILL CONTINUE TO MONITOR NEURO STATUS T/O SHIFT AND DURING SEDATION VACATION. SEE FULL SHIFT ASSESSMENT
[2019-09-17 23:12] LABS: Magnesium, Blood 1.7 mg/dL (1.6-2.4); Potassium, Blood 3.7 mmol/L (3.5-5.5)
[2019-09-17 23:33] LABS: Hematocrit 27.9 % (37.0-53.0); Hemoglobin 9.6 g/dL (13.5-17.5)
--- NOTE | 2019-09-18 | NUR ---
MIDSHIFT SUMMARY PT EXHIBITING OCCASIONAL DECERBRATE POSTURING. WHEN LAYING PT'S HOB DOWN PT'S EYES OPEN WIDE AND RAPIDLY BOUNCE UP/DOWN. PT FAILS TO TRACK MOVEMENT OR FOLLOW COMMANDS.
[2019-09-18 04:43] LABS: Hematocrit 28.5 % (37.0-53.0); Hemoglobin 9.6 g/dL (13.5-17.5); LYMPHOCYTES ABSOLUTE AUTO 3.05 K/mm3 (0.84-5.20); LYMPHOCYTES PERCENT AUTO 17 % (21-46); MONOCYTES ABSOLUTE AUTO 1.38 K/mm3 (0.16-1.47); MONOCYTES PERCENT AUTO 8 % (4-13); Mean Corpuscular HGB 30.8 pg (26.0-34.0); Mean Corpuscular HGB Conc 33.7 g/dL (31.5-36.5); Mean Corpuscular Volume 91 fL (80-100); Mean Platelet Volume 10.1 fL (9.1-12.4); NRBC Auto 3.3 /100 WBC (0.0-0.2); Platelet Count 292 K/mm3 (150-400); RDW Coefficient Variation 15.9 % (11.7-14.2); RDW Standard Deviation 49.7 fL (35.1-46.3); Red Blood Cell Count 3.12 M/mm3 (4.30-5.90); White Blood Cell Count 18.17 K/mm3 (4.00-11.30)
[2019-09-18 04:45] LABS: BASOPHILS ABSOLUTE AUTO 0.06 K/mm3 (0.00-0.23); BASOPHILS PERCENT AUTO 0 % (0-2); EOSINOPHILS ABSOLUTE AUTO 0.03 K/mm3 (0.00-0.68); EOSINOPHILS PERCENT AUTO 0 % (0-6); IMMATURE GRAN ABSOLUTE AUTO 3.14 K/mm3 (0.00-0.10); IMMATURE GRAN PERCENT AUTO 17 % (0-1); NEUTROPHILS ABSOLUTE AUTO 10.51 K/mm3 (1.96-9.15); NEUTROPHILS PERCENT AUTO 58 % (41-73)
[2019-09-18 04:58] LABS: International Normalized Ratio 1.02; Prothrombin Time Results 10.8 Sec (9.7-11.5)
[2019-09-18 04:59] LABS: Anion Gap 7 mmol/L (6-16); Blood Urea Nitrogen 42 mg/dL (8-24); Bun/Creatinine Ratio 39.6 (12.0-20.0); CO2, Blood 21 mmol/L (21-32); Calcium, Blood 7.6 mg/dL (8.5-10.1); Chloride, Blood 123 mmol/L (98-108); Creatinine, Blood 1.06 mg/dL (0.60-1.20); Glomerular Filtration Rate >60 (60-); Glucose, Blood 120 mg/dL (70-99); Magnesium, Blood 1.9 mg/dL (1.6-2.4); Sodium, Blood 151 mmol/L (136-145)
[2019-09-18 05:06] LABS: BAND PERCENT MAN 9 % (0-8); BASOPHILS PERCENT MAN 0 % (0-2); EOSINOPHILS PERCENT MAN 0 % (0-6); LYMPHOCYTES PERCENT MAN 5 % (21-46); METAMYELOCYTE ABSOLUTE MAN 0.72 K/mm3 (0.00-0.00); METAMYELOCYTE PERCENT MAN 4 % (0-0); MONOCYTES ABSOLUTE MAN 0.54 K/mm3 (0.16-1.47); MONOCYTES PERCENT MAN 3 % (4-13); MYELOCYTE ABSOLUTE MAN 0.36 K/mm3 (0.00-0.00); MYELOCYTE PERCENT MAN 2 % (0-0); NEUTROPHILS ABSOLUTE MAN 15.44 K/mm3 (1.96-9.15); PROMYELOCYTE ABSOLUTE MAN 0.18 K/mm3 (0.00-0.00); PROMYELOCYTE PERCENT MAN 1 % (0-0); SEG NEUTROPHILS PERCENT MAN 76 % (41-73); TOTAL CELLS COUNTED 100
--- NOTE | 2019-09-18 05:52 | NUR ---
SHIFT SUMMARY PT REMAINS INTUBATED WITH VENT SETTINGS AC 12/400/5/30%. PT SEDATED WITH PROPOFOL 30 MCG/KG/MIN AND PRECEDEX 0.6 MCG/KG/HR. LEVOPHED PLACED ON STANDBY AT 2200 WITH NO NEED TO RESTART OVERNIGHT. PT'S VSS. NO NEUROLOGICAL CHANGES SINCE LAST UPDATE, PT STILL FAILS TO TRACK/FOLLOW COMMANDS. 800 ML DARK OSBALDO URINARY OUTPUT. WILL REPORT TO DAYSHIFT NURSE.
--- NOTE | 2019-09-18 06:17 | NUR ---
SHIFT SUMMARY PT REMAINS FEBRILE AND HAS BECOME HYPOTENSIVE. CENTRAL LINE BEING INSERTED AND ORDER FOR ADDITIONAL NS BOLUS AND START OF LEVOPHED. 1000 ML CLOUDY FOUL SMELLING URINARY OUTPUT FROM [place]. COOLING BLANKET REMAINS IN PLACE. PLEASE SEE PREVIOUS NOTES FROM THIS SHIFT. WILL REPORT TO DAYSHIFT NURSE.
--- NOTE | 2019-09-18 07:27 | NUR ---
ASSUMED CARE OF PATIENT. EYES OPEN, BLINKING. FOLLOWED COMMANDS TO SQUEEZE FINGERS WITH R HAND AND TO WIGGLE R TOES. NO RESPONSE ON L SIDE OF BODY. PUPILS EQUAL, +1, SLUGGISH. PROPOFOL @ 30 MCG/KG/MIN, PRECEDEX @ 0.6 MCG/KG/HR. VENT SETTINGS: 12/400/30% FIO2/PEEP 5, TOLERATING WELL. DEPENDENT EDEMA NOTED IN BUE. SCD'S IN PLACE.
--- NOTE | 2019-09-18 10:44 | NUR ---
DR FERRER: PROVIDER AT BEDSIDE TO EVAL PT. STS SHE HAS ORDERED VITAMIN K AGAIN TODAY INR IS IMPROVING NOW. VENT SETTINGS CHANGED TO SPONTANEOUS W/ PS 06/17. PROVIDER HAS REQUESTED THAT PRECEDEX BE INCREASED TO 1.0 MCG/KG/HR & THAT PROPOFOL RATE BE REDUCED BY HALF, NOW INFUSING AT 15 MCG/KG/HR. SHE WOULD LIKE TO SEE HOW THE PT RESPONDS NEUROLOGICALLY TO DECREASED PROPOFOL USE. WILL NOTIFY RUBI Grimaldo, PRIMARY RN & CONTINUE TO MONITOR.
--- NOTE | 2019-09-18 14:20 | NUR ---
PATIENT AROUSES TO SPEECH, OPENS EYES, CAN FOCUS AND TRACK FOR A FEW SECONDS. WHEN ASKED IF HE WAS IN PAIN, HE SHOOK HIS HEAD NO. VSS, IN NAD. VENT: SPONT, RR 23-26, TV > 400, PS 8, 30% FIO2, TOLERATING WELL. PRECEDEX INFUSING AT 1 MCG/KG/HR, PROPOFOL INFUSING AT 8 MCG/KG/MIN.
--- NOTE | 2019-09-18 18:30 | NUR ---
SHIFT SUMMARY: NEURO STATUS IMPROVED TODAY WITH CHANGES IN SEDATION. AROUSABLE TO SPEECH, FOLLOWS SOME COMMANDS. JALLOH, BUT NO PURPOSEFUL MOVEMENT. HAS BEEN IN SINUS RHYTHM, WEEPING PERIPHERAL EDEMA X 4 EXTREMITIES. BREATH SOUNDS COARSE. VENT SETTINGS: SPONT, PS 8, FIO2 30%, PULLING TV > 400, AND RR 22-28; TOLERATING WELL. SKIN IS DRY, PEELING WITH EXCORIATIONS IN BILATERAL GROIN AREAS. TOLERATING TF, GREATEST RESIDUAL WAS 120 ML. NO BM TODAY. KAPOOR DRAINING ADEQUATE URINE. DENIED PAIN WHILE AWAKE. LUIS PICC DRESSING AND CAPS CHANGED.
--- NOTE | 2019-09-18 19:45 | NUR ---
ASSUMED CARE RECEIVED REPORT FROM DAWNA RN. PT IS SEDATED ON PROPOFOL 8MCG/KG/MIN, AND PRECEDEX 1.0MCG/KG/HR. HE ALSO HAS NS TKO INFUSING. HE IS INTUBATED WITH A 7.5 ETT, 25 AT THE LIP. VENT SETTINGS: SPONTANEOUS 8/5, 30% FIO2. HE HAS BILATERAL SCD'S AND SWB RESTRAINTS, ALONG WITH A PATENT AND DRAINING KAPOOR. HIS PICC LINE SITE IS WNL/CDI. HE HAS TF INFUSING THROUGH HIS OG TUBE; VITAL HIGH PROTEIN AT 30ML/HR WITH Q4H 300ML FLUSHES. HE IS ON CONTACT ISOLATIONS. BED IS LOW AND LOCKED. VITALS ARE CURRENTLY STABLE.
[2019-09-19 05:11] LABS: Hematocrit 28.4 % (37.0-53.0); Hemoglobin 9.3 g/dL (13.5-17.5); Mean Corpuscular HGB 31.2 pg (26.0-34.0); Mean Corpuscular HGB Conc 32.7 g/dL (31.5-36.5); Mean Platelet Volume 10.1 fL (9.1-12.4); NRBC ABSOLUTE 0.14 K/mm3 (0.00-0.02); Platelet Count 308 K/mm3 (150-400); RDW Coefficient Variation 18.5 % (11.7-14.2); RDW Standard Deviation 53.1 fL (35.1-46.3); Red Blood Cell Count 2.98 M/mm3 (4.30-5.90); White Blood Cell Count 14.73 K/mm3 (4.00-11.30)
[2019-09-19 05:12] LABS: Mean Corpuscular Volume 95 fL (80-100)
[2019-09-19 05:25] LABS: International Normalized Ratio 1.03; Prothrombin Time Results 10.9 Sec (9.7-11.5)
[2019-09-19 05:35] LABS: Anion Gap 10 mmol/L (6-16); Blood Urea Nitrogen 36 mg/dL (8-24); CO2, Blood 20 mmol/L (21-32); Calcium, Blood 7.6 mg/dL (8.5-10.1); Chloride, Blood 120 mmol/L (98-108); Creatinine, Blood 0.88 mg/dL (0.60-1.20); Glomerular Filtration Rate >60 (60-); Glucose, Blood 122 mg/dL (70-99); Magnesium, Blood 1.7 mg/dL (1.6-2.4); Phosphorus, Blood 3.7 mg/dL (2.5-4.9); Potassium, Blood 3.7 mmol/L (3.5-5.5); Sodium, Blood 150 mmol/L (136-145)
[2019-09-19 05:44] LABS: BAND PERCENT MAN 3 % (0-8); BASOPHILS PERCENT MAN 0 % (0-2); EOSINOPHILS PERCENT MAN 0 % (0-6); LYMPHOCYTES ABSOLUTE MAN 1.32 K/mm3 (0.84-5.20); LYMPHOCYTES PERCENT MAN 9 % (21-46); METAMYELOCYTE ABSOLUTE MAN 0.29 K/mm3 (0.00-0.00); METAMYELOCYTE PERCENT MAN 2 % (0-0); MONOCYTES ABSOLUTE MAN 1.17 K/mm3 (0.16-1.47); MONOCYTES PERCENT MAN 8 % (4-13); MYELOCYTE ABSOLUTE MAN 0.73 K/mm3 (0.00-0.00); MYELOCYTE PERCENT MAN 5 % (0-0); NEUTROPHILS ABSOLUTE MAN 11.19 K/mm3 (1.96-9.15); SEG NEUTROPHILS PERCENT MAN 73 % (41-73); TOTAL CELLS COUNTED 100
--- NOTE | 2019-09-19 06:50 | NUR ---
SHIFT SUMMARY/SON CALLED PT REMAINS INTUBATED ON VENT SPONTANEOUS 06/17, 30% FOLLOWING COMMANDS, AND MOVING EXTREMETIES, BUT NOTHING PURPOSEFUL. CURRENT GTTPS: PROPOFOL AT 8MCG/KG/MIN, PRECEDEX 1.0MCG/KG/HR, AND NS TKO. HE IS BRINGING IN TV IN THE 300'S, AT A RATE IN THE 20'S. COARSE AND DIMINISHED, MAKING COPIOUS SECRETIONS IN THE ORAL CAVITY. TUBE FEEDING IS AT GOAL 30ML/HR; VITAL HIGH PROTEIN, WITH Q4H 300CC FLUSHES. RESIDUALS WERE MINIMAL (<10ML/HR). PT IS IN SINUS RHYTHM IN 70-80S, MILDLY ELEVATED BP. KAPOOR IS PATENT AND DRAINING ADEQUATE URINE OUTPUT, 1375ML. HE CONTINUES TO HAVE SCD'S AND SWB RESTRAINTS. THE PATIENT'S FRIEND: SOFIYA CALLED THE DEPUTY IN [place] AND ASKED TO LOOK FOR FAMILY OF THE PATIENT. JESSICA DAN, THE PATIENT'S SON, CALLED THE ICU. I INFORMED HIM ON THE SITUATION AND GAVE HIM SOME INFORMATION RELATED TO HOW HE CAN GET AHOLD OF US, AND VISIT HIS FATHER IF HE WOULD CHOOSE TO DO. HE DIDN'T REALLY GIVE AN ANSWER, BUT I GOT HIS NUMBER AND PUT IT IN THE CHART. BED IS LOW AND LOCKED. CPOT = 0 CURRENTLY.
--- NOTE | 2019-09-19 07:39 | NUR ---
ASSUMED CARE OF PT. VENT SETTINGS: SPONT, TV >400, PS 8, 30% FIO2, RR 21-27. PT APPEARS COMFORTABLE. AROUSES TO SPEECH, FOLLOWS COMMANDS TO SQUEEZE FINGERS, MOVES FEET SPONTANEOUSLY. PUPILS PINPOINT. NODS AND SHAKES HEAD IN RESPONSE TO QUESTIONS. PRECEDEX @ 1 MCG/KG/HR, PROPOFOL @ 8 MCG/KG/MIN, NS @ TKO.
--- NOTE | 2019-09-19 08:09 | NUR ---
SUCTIONED PT BOTH ORALLY AND VIA ETT PRIOR TO ORAL CARE. DURING ORAL CARE, PT BEGAN COUGHING AND GAGGING SLIGHTLY. REPEATED SUCTION X 2 VIA ETT AND ORALLY. TV DROPPED TO 200'S, RR INCREASED TO 40 PT CONTINUED TO COUGH. O2 SATS REMAINED IN HIGH 90'S. WHEN COUGHING DECREASED, PROPOFOL INCREASED TO 20 MCG/KG/MIN FOR A SHORT TIME TO HELP PT RELAX. RT YAENLIS CAME TO BEDSIDE, SUCTIONED PT AGAIN AND GAVE BREATHING TX. PT NOW ON SPONT WITH TV >400, PS 14, AND PEEP 5, RR 26. PT IS RESTING COMFORTABLY.
--- NOTE | 2019-09-19 10:35 | NUR ---
DR. GARZON AT BEDSIDE FOR ASSESSMENT. NO NEW ORDERS AT THIS TIME.
--- NOTE | 2019-09-19 12:33 | NUR ---
PERFORMED NOON ORAL CARE. PATIENT COUGHING, ALLOWED ORAL AND ETT SUCTIONING X 2. IS MORE AWAKE, MAKING MORE PURPOSEFUL MOVEMENTS TOWARD ETT. YANELIS FROM RT CAME TO BEDSIDE TO CHECK CUFF PRESSURE PER THIS AUTHOR'S REQUEST. PATIENT CLAMPED MOUTH SHUT AFTER ORAL CARE COMPLETED. YANELIS STATED SHE THOUGHT HE WOULD BENEFIT FROM CPT; STARTED CPT PER BED. AT THIS, PATIENT BECAME SIGNICANTLY MORE AGITATED, PULLING AGAINST RESTRAINTS AND COUGHING. INCREASED PROPOFOL TO 15 MCG/KG/HR TO HELP PT RELAX, WITH LITTLE EFFECT. GAVE FENTANYL 50 MCG IV PT APPEARED TO BE IN PAIN. RR DOWN TO 18-24 FROM 33-40 AND PT APPEARS COMFORTABLE, IS RESTING.
--- NOTE | 2019-09-19 13:45 | NUR ---
PT HAD VISIT FROM FRIEND, JEANETH HAMILTON. SHE STATED THAT SHE KNOWS [place], WHERE SHE DELIVERS FOOD WEEKLY FOR HOMELESS FOLKS. SHE STAYED ~ 10 MINUTES. PT RESPONDED WELL TO HER VISIT.
--- NOTE | 2019-09-19 15:30 | NUR ---
DR. SANTACRUZ AT BEDSIDE FOR ASSESSMENT, STATED GOAL IS PT TO BE EXTUBATED OVER THE WEEKEND. THIS AUTHOR REQUESTED ORDER FOR PRN HYDRALAZINE FOR SBP > 160 SINCE BP'S HAVE BEEN ELEVATED. NO ADDITIONAL DIURETICS ORDERED D/T HYPERNATREMIA.
--- NOTE | 2019-09-19 17:35 | NUR ---
PATIENT ARRIVED FROM AT 1703. REPORT RECIEVED FROM STAN BRANHAM. ANTICIPATING ORDERS FOR HEPARIN GTT. R GROIN SITE SOFT, NO HEMATOMA, NO BLEEDING. L HEMATOMA FIRM WITH PROFUSE ECCHYMOSIS SPREADING UP HER BACK. MONOPHASIC L PT PULSE BY DOPPLER, EXTREMITY IS COOL AND PALE. PLACED PT ON 2 L/MIN NC FOR O2 SAT 87%, WENT UP TO 96%, NEEDS ENCOURAGEMENT TO DEEP BREATHE. C/O 10/10 PAIN IN LLE, MEDICATED WITH FENTANYL AND NORCO WITH ADEQUATE RELIEF.
--- NOTE | 2019-09-19 18:57 | NUR ---
SHIFT SUMMARY: AROUSES TO SPEECH, FOLLOWS COMMANDS, CAN ANSWER YES AND NO QUESTIONS WITH HEAD NOD. IS MOVING ALL EXTREMITIES AND HAD AN INSTANCE OF PURPOSEFUL MOVEMENT USING L ARM TO REACH UP TO TOUCH ETT. NSR, HR 61-80, 4+ PITTING EDEMA THROUGHOUT, SCROTAL EDEMA. LUNGS ARE COARSE IN UPPER LOBES, DIM IN BILATERAL BASES. NO BM TODAY, ABD SOFT, BS ACTIVE. NO S/S OF ACTIVE BLEEDING. MEDICATED FOR PAIN WITH FENTANYL, WITH GOOD EFFECT. TOLERATING TF WELL, LARGEST RESIDUAL WAS 40 ML. KAPOOR WITH GOOD OUTPUT. PLAN IS FOR POSSIBLE EXTUBATION THIS WEEKEND.
--- NOTE | 2019-09-19 19:45 | NUR ---
ASSUMED CARE RECEIVED REPORT FROM CARROL VENEGAS. PT IS ON VENT WITH SETTINGS SPONTANEOUS 14/5, 30%. CURRENT GTTPS: PROPOFOL 15MCG/KG/MIN, PRECEDEX 1.0MCG/KG/HR, AND NS TKO. SCD'S AND SWB RESTRAINTS ARE ON PT. KAPOOR IS PATENT AND HANGING TO GRAVITY. VITAL HIGH PROTEIN TUBE FEEDING IS INFUSING AT 30ML/HR VIA OG TUBE, WITH Q4H 300ML FLUSHES. BED IS LOW AND LOCKED.
--- NOTE | 2019-09-19 21:30 | NUR ---
SWITCH IN VENT SETTINGS/SECRETIONS RT CHANGED PT BACK TO AC12/400/5/30% DUE TO LOW RESPIRATORY RATE AND MINUTE VENTILATION. PT IS MAKING LOTS OF SECRETIONS FROM TRACHEA AND ORAL CAVITY. FROTHY, THIN AND CLEAR. PT IS ALSO SLIGHTLY MORE AGITATED TODAY, MOVING HIS EXTREMETIES WITH MORE RANGE, FIGHTING TURNS WITH MORE FORCE AND DEMONSTRATING MORE PURPOSEFUL MOVEMENT (I.E. REACHING FOR THE ETT).
[2019-09-20 04:39] LABS: Hematocrit 29.8 % (37.0-53.0); Hemoglobin 9.6 g/dL (13.5-17.5); Mean Corpuscular HGB 30.7 pg (26.0-34.0); Mean Corpuscular HGB Conc 32.2 g/dL (31.5-36.5); Mean Corpuscular Volume 95 fL (80-100); Mean Platelet Volume 10.3 fL (9.1-12.4); NRBC ABSOLUTE 0.03 K/mm3 (0.00-0.02); NRBC Auto 0.2 /100 WBC (0.0-0.2); Platelet Count 278 K/mm3 (150-400); RDW Coefficient Variation 18.9 % (11.7-14.2); RDW Standard Deviation 51.8 fL (35.1-46.3); Red Blood Cell Count 3.13 M/mm3 (4.30-5.90); White Blood Cell Count 14.43 K/mm3 (4.00-11.30)
[2019-09-20 05:01] LABS: Albumin, Blood 1.8 g/dL (3.4-5.0); Anion Gap 9 mmol/L (6-16); Blood Urea Nitrogen 30 mg/dL (8-24); Bun/Creatinine Ratio 44.4 (12.0-20.0); CO2, Blood 21 mmol/L (21-32); Calcium, Blood 7.5 mg/dL (8.5-10.1); Chloride, Blood 109 mmol/L (98-108); Creatinine, Blood 0.68 mg/dL (0.60-1.20); Glomerular Filtration Rate >60 (60-); Glucose, Blood 122 mg/dL (70-99); Phosphorus, Blood 3.2 mg/dL (2.5-4.9); Potassium, Blood 3.8 mmol/L (3.5-5.5); Sodium, Blood 139 mmol/L (136-145)
[2019-09-20 05:05] LABS: BAND PERCENT MAN 6 % (0-8); BASOPHILS PERCENT MAN 0 % (0-2); EOSINOPHILS PERCENT MAN 0 % (0-6); LYMPHOCYTES ABSOLUTE MAN 0.43 K/mm3 (0.84-5.20); LYMPHOCYTES PERCENT MAN 3 % (21-46); METAMYELOCYTE ABSOLUTE MAN 0.14 K/mm3 (0.00-0.00); METAMYELOCYTE PERCENT MAN 1 % (0-0); MONOCYTES ABSOLUTE MAN 0.43 K/mm3 (0.16-1.47); MONOCYTES PERCENT MAN 3 % (4-13); MYELOCYTE ABSOLUTE MAN 0.14 K/mm3 (0.00-0.00); MYELOCYTE PERCENT MAN 1 % (0-0); NEUTROPHILS ABSOLUTE MAN 13.27 K/mm3 (1.96-9.15); SEG NEUTROPHILS PERCENT MAN 86 % (41-73); TOTAL CELLS COUNTED 100
--- NOTE | 2019-09-20 06:03 | NUR ---
SHIFT SUMMARY PT IS ON AC/VC VENTILATION OF AC12/400/5/30%; HE WAS ON SPONTANEOUS MODE 14/5 AT START OF SHIFT BUT WAS SWITCHED OVER WHEN HE BEGAN TO HYPOVENTILATE (RR OF 8). HE IS PRODUCING A MODERATE AMOUNT OF TRACHEAL AND ORAL SECRETIONS - WHITE, THIN, SOMETIMES FOAMY, AND SOMETIMES THICKER. CURRENT GTTPS: PRECEDEX 1.0MCG/KG/HR, PROPOFOL 15MCG/KG/MIN, AND NS TKO. HIS NEURO SEEMS TO BE IMPROVING, MAKING MORE PURPOSEFUL MOVEMENTS, AND ATTEMPTING TO COMMUNICATE - (I.E. POINTING AND MOUTHING WORDS). HE COMMUNICATED WITH ME THAT HE DOESN'T WANT SOFIYA TO BE IN THE ROOM WITH HIM ANYMORE. I WILL PASS THAT ON TO DAY SHIFT. HIS EDEMA SEEMS TO BE IMPROVING WELL, BUT IS STILL DEEP PITTING, AND WEEPING IN THE UPPER EXTREMETIES. HE HAD A BED BATH LAST NIGHT. HE REMAINS FLUID POSITIVE, YET WAS NEGATIVE FOR THE SHIFT - HE HAD 2100ML OF URINE OUTPUT. HE HAS VITAL HIGH PROTEIN INFUSING AT GOAL RATE OF 30ML/HR, WITH Q4H 300 CC FLUSHES. BED IS LOW AND LOCKED.
--- NOTE | 2019-09-20 09:00 | NUR ---
PROPFOL TURNED OFF AT 0800 FOR INITIAL ASSESSMENT AND SEDATION HOLIDAY. PT WAS ABLE TO WAKE UP AND BE ALERT. PT FOLLOWED SIMPLE COMMANDS AND ANSWERED SIMPLE YES/NO QUESTIONS WITH NOD OF HEAD. PT'S PARKING LOT ATTENDANT AND CASHIER STRENGTH WAS WEAKER ON THE LEFT SIDE. WILL CONTINUE TO LEAVE PROPFOL OFF AND PRECEDEX ON AND MONITOR PT'S TOLERANCE OF INTUBATION. PT WAS TRANSIONED TO SPONTANOUS MODE ON VENT BY RT PRIOR TO TURNING THE PROPFOL OFF. BILAT WRIST RESTRAINTS REMAIN IN PLACE AND EDUCATED PT ON NOT TO REACH/PULL FOR THE TUBE. PT HASN'T HAD A BM FOR MULT DAYS, BOWEL CARE MEDS REQUESTED FROM DR SANTACRUZ. KAPOOR REMAINS IN PLACE AND PT HAS ADAQUATE OUTPUT.
[2019-09-20 13:31] LABS: Anion Gap 8 mmol/L (6-16); Blood Urea Nitrogen 28 mg/dL (8-24); Bun/Creatinine Ratio 42.7 (12.0-20.0); CO2, Blood 22 mmol/L (21-32); Calcium, Blood 7.6 mg/dL (8.5-10.1); Chloride, Blood 110 mmol/L (98-108); Creatinine, Blood 0.66 mg/dL (0.60-1.20); Glomerular Filtration Rate >60 (60-); Glucose, Blood 123 mg/dL (70-99); Potassium, Blood 3.7 mmol/L (3.5-5.5); Sodium, Blood 140 mmol/L (136-145)
--- NOTE | 2019-09-20 13:39 | NUR ---
TUBE FEEDS STOPPED PER DR SANTACRUZ FOR PLANS OF EXTUBATION. PT IS RESPONSIVE TO IV LASIX. PT UPDATED ON PLAN FOR EXTUBATION.
--- NOTE | 2019-09-20 14:50 | NUR ---
PT EXTUBATED TO 4L NC AT 1444. PT TOLERATED WELL AND IS MAINTAINING SATS.
--- NOTE | 2019-09-20 18:34 | NUR ---
SHIFT SUMMARY PT WAS SUCCESSFULLY EXTUBATED TODAY AND WEANED TO ROOM AIR. POST EXTUBATION, PT IS ABLE TO FOLLOW SIMPLE COMMANDS, BUT IS VERY WEAK. PT'S SPEECH IS GARBLED/INCOMPREHENSIBLE, WITH A FEW OCCASIONAL CLEAR WORDS. A DOBHOFF NG WAS PLACED FOR TUBE FEEDS AND MEDS. RADIOLOGY VERIFIED CORRECT PLACEMENT OF NG, OKAY TO USE. TUBE FEEDS WERE RESUMED. IV LASIX WAS GIVEN THIS AFTERNOON AND PT HAS APPROPRIATELY DIURISED, WITH 4L URINE OUTPUT. KAPOOR CATH REMAINS IN PLACE. PT CONTINUES TO UTILIZE A PICC LINE.
--- NOTE | 2019-09-20 19:00 | NUR ---
Review of pt care and ethical needs of patient with visits from his friends.
--- NOTE | 2019-09-20 19:59 | NUR ---
ASSUMED CARE BEDSIDE REPORT RECIEVED. PT IS LAYING IN BED, AWAKE, AND ALERT. PT WITH GARBLED AND INCOMPREHENSIBLE SPEECH. PT FOLLOWING COMMANDS APPROPRIATELY. PT SHAKES HEAD NO TO PAIN OR DISCOMFORT AT THIS TIME. VITAL SIGNS STABLE WITH PT ON ROOM AIR. DOBHOFF IN PLACE WITH TF AT 30 ML/HR GOAL RATE. KAPOOR IN PLACE WITH CLEAR YELLOW OUTPUT NOTED. PT DIURESED TODAY, PT CONTINUES TO HAVE GOOD URINE OUTPUT. PT WITH WEEPING EDEMA IN UPPER EXTREMITIES. NO FAMILY AT BEDSIDE. PICC TO LUIS C/D/I WITH PRECEDEX INFUSING AT 0.8 MCG/KG/MIN. WILL CONTINUE TO MONITOR.
[2019-09-21 04:04] LABS: BASOPHILS ABSOLUTE AUTO 0.03 K/mm3 (0.00-0.23); BASOPHILS PERCENT AUTO 0 % (0-2); EOSINOPHILS ABSOLUTE AUTO 0.13 K/mm3 (0.00-0.68); EOSINOPHILS PERCENT AUTO 1 % (0-6); Hematocrit 29.2 % (37.0-53.0); Hemoglobin 9.7 g/dL (13.5-17.5); IMMATURE GRAN ABSOLUTE AUTO 0.37 K/mm3 (0.00-0.10); IMMATURE GRAN PERCENT AUTO 4 % (0-1); LYMPHOCYTES ABSOLUTE AUTO 2.22 K/mm3 (0.84-5.20); LYMPHOCYTES PERCENT AUTO 22 % (21-46); MONOCYTES ABSOLUTE AUTO 0.85 K/mm3 (0.16-1.47); MONOCYTES PERCENT AUTO 9 % (4-13); Mean Corpuscular HGB 31.5 pg (26.0-34.0); Mean Corpuscular HGB Conc 33.2 g/dL (31.5-36.5); Mean Corpuscular Volume 95 fL (80-100); Mean Platelet Volume 9.9 fL (9.1-12.4); NEUTROPHILS ABSOLUTE AUTO 6.34 K/mm3 (1.96-9.15); NEUTROPHILS PERCENT AUTO 64 % (41-73); NRBC ABSOLUTE 0.02 K/mm3 (0.00-0.02); NRBC Auto 0.2 /100 WBC (0.0-0.2); Platelet Count 265 K/mm3 (150-400); RDW Coefficient Variation 19.1 % (11.7-14.2); RDW Standard Deviation 51.6 fL (35.1-46.3); Red Blood Cell Count 3.08 M/mm3 (4.30-5.90); White Blood Cell Count 9.94 K/mm3 (4.00-11.30)
[2019-09-21 04:23] LABS: Anion Gap 8 mmol/L (6-16); Blood Urea Nitrogen 24 mg/dL (8-24); Bun/Creatinine Ratio 37.7 (12.0-20.0); CO2, Blood 24 mmol/L (21-32); Calcium, Blood 7.4 mg/dL (8.5-10.1); Chloride, Blood 109 mmol/L (98-108); Creatinine, Blood 0.64 mg/dL (0.60-1.20); Glomerular Filtration Rate >60 (60-); Glucose, Blood 94 mg/dL (70-99); Potassium, Blood 3.2 mmol/L (3.5-5.5); Sodium, Blood 141 mmol/L (136-145)
[2019-09-21 05:15] LABS: PCO2 Arterial 33.2 mmHg (35-45); PO2 Arterial 63.7 mmHg (80-100); pH Blood Arterial 7.45 (7.35-7.45)
--- NOTE | 2019-09-21 06:13 | NUR ---
SHIFT SUMMARY NO ACUTE CHANGES THIS SHIFT. PT HAS REMAINED UNCHANGED WITH GARBLED SPEECH. PT HAS REMAINED AWAKE THROUGHOUT THE NIGHT. PRECEDEX REMAINS ON AT 0.8 MCG/KG/MIN. DOBHOFF REMAINS IN PLACE WITH TF AT 30 ML/HR GOAL RATE. PICC IS C/D/I. KAPOOR IN PLACE WITH CLEAR YELLOW URINE OUTPUT. PT WITH MULTIPLE INCONTINENT STOOLS THIS SHIFT. ATTENDS IN PLACE. VITAL SIGNS HAVE REMAINED STABLE WITH PT ON ROOM AIR. WILL CONTINUE TO MONITOR AND REPORT OFF TO ONCOMING RN.
--- NOTE | 2019-09-21 08:42 | NUR ---
INITIAL ASSESSMENT: PT ALERT, FOLLOWING COMMANDS, HOWEVER SPEECH IS GARBLED. LUNG SOUNDS CLEAR AND DIM IN BASES. SATTING >90% ON RA. PT IN SR SBP 120S, HR 90S. SCDS ARE IN PLACE. BOWEL TONES PRESENT, DOBHOFF IN PLACE WITH CONTINUOUS TF AT 30ML/HR. KAPOOR IN PLACE DRAINING CLEAR YELLOW URINE. RITU-AREA REDDENED. PICC LINE TO LUIS. CLEAN, DRY, INTACT. CURRENTLY INFUSING K+ AND PRECEDEX AT 0.8. PT ROSE HAVE SWALLOW EVAL TODAY. BED IN LOWEST POSITION. CALL LIGHT IN REACH. WILL CONTINUE TO MONITOR.
--- NOTE | 2019-09-21 09:50 | NUR ---
DR. SANTACRUZ UPDATED ON PATIENT STATUS AND RESULTS OF SWALLOW EVAL. ST STATED THAT WOULD RE-EVALUATE ON MONDAY. IN ROOM ASSESSING PATIENT.
--- NOTE | 2019-09-21 18:09 | NUR ---
SHIFT SUMMARY: PT ALERT, FOLLOWS COMMANDS, SPEECH IS STILL GARBLED BUT HAS BECOME CLEARER THE SHIFT PROGRESSED. DENIES PAIN. WAS AFEBRILE THROUGHOUT SHIFT. LUNG SOUNDS CLEAR IN UPPER LOBES BUT DIMINISHED AT BASES. SATTING >90% ON RA. PT IN SR/ST WITH OCC PVCS. SBP IN THE 120S THE MAJORITY OF SHIFT HWEVER DOES INCREASE WITH MOVEMENT/REPOSITIONING. HR IN THE 90S-1TEENS. DOBHOFF IN PLACE WITH PIVOT 10.5 RUNNING AT 30 MLS/HR (GOAL IS 40MLS/HR) WITH 30 H2O FLUSH. RECTAL TUBE INPLACE. KAPOOR PATENT AND DRAINING CLEAR YELLOW URINE. SKIN IS EXORIATED AROUND RITU AREA. PICC LINE IN LUIS SL. PRECEDEX IS ON STANDBY. TF CAN BE INCREASED AT 2200. BED IN LOWEST POSITION, CALL LIGHT IN REACH
--- NOTE | 2019-09-21 18:55 | NUR ---
I AGREE WITH CARROL HERNANDEZ'S NOTES.
--- NOTE | 2019-09-21 22:38 | NUR ---
ASSUMED CARE NOTE: ASSUMED CARE OF PT AT 1900, REVEIVED REPORT FROM TARIK. PT IS ALERT AND ABLE TO FOLLOW SIMPLE COMMANDS. SPEECH IS GARBALED, HOWEVER HE IS ABLE TO ANSWER YES OR NO QUESTIONS. PT IS ON RA WITH SP02 ABOVE 90%. DOBHOFF IN PLACE AND CURRENLTY RUNNING @ GOAL OF 40ML/HR. SINUS TACH WITH HR BETWEEN 100-130 BPM. PT DENIES ANY PAIN AT THIS TIME. KAPOOR PATENT AND DRAINING YELLOW CLEAR URINE. CATH/RITU CARE WAS GIVEN AND BARRIER PROTECTOR WAS APPLIED TO SKIN. RECTAL TUBE PATNET. WILL CONTINUE TO MONTIOR PT T/O SHIFT. BED AT LOWEST LEVEL.
[2019-09-22 04:12] LABS: BASOPHILS ABSOLUTE AUTO 0.03 K/mm3 (0.00-0.23); BASOPHILS PERCENT AUTO 0 % (0-2); EOSINOPHILS ABSOLUTE AUTO 0.09 K/mm3 (0.00-0.68); EOSINOPHILS PERCENT AUTO 1 % (0-6); Hematocrit 31.5 % (37.0-53.0); Hemoglobin 10.3 g/dL (13.5-17.5); IMMATURE GRAN ABSOLUTE AUTO 0.29 K/mm3 (0.00-0.10); IMMATURE GRAN PERCENT AUTO 3 % (0-1); LYMPHOCYTES ABSOLUTE AUTO 2.29 K/mm3 (0.84-5.20); LYMPHOCYTES PERCENT AUTO 23 % (21-46); MONOCYTES ABSOLUTE AUTO 0.91 K/mm3 (0.16-1.47); MONOCYTES PERCENT AUTO 9 % (4-13); Mean Corpuscular HGB 31.3 pg (26.0-34.0); Mean Corpuscular HGB Conc 32.7 g/dL (31.5-36.5); Mean Corpuscular Volume 96 fL (80-100); Mean Platelet Volume 10.3 fL (9.1-12.4); NEUTROPHILS ABSOLUTE AUTO 6.43 K/mm3 (1.96-9.15); NEUTROPHILS PERCENT AUTO 64 % (41-73); NRBC ABSOLUTE 0.03 K/mm3 (0.00-0.02); NRBC Auto 0.3 /100 WBC (0.0-0.2); Platelet Count 323 K/mm3 (150-400); RDW Coefficient Variation 18.6 % (11.7-14.2); RDW Standard Deviation 58.4 fL (35.1-46.3); Red Blood Cell Count 3.29 M/mm3 (4.30-5.90); White Blood Cell Count 10.04 K/mm3 (4.00-11.30)
[2019-09-22 04:31] LABS: Alanine Aminotransfer (ALT/SGP 47 U/L (12-78); Albumin, Blood 1.8 g/dL (3.4-5.0); Albumin/Globulin Ratio 0.5 (0.8-1.8); Alk Phos 120 U/L (50-136); Anion Gap 7 mmol/L (6-16); Aspartate Aminotrans (AST/SGOT 31 U/L (12-37); Bilirubin, Total 0.4 mg/dL (0.1-1.0); Blood Urea Nitrogen 18 mg/dL (8-24); Bun/Creatinine Ratio 27.6 (12.0-20.0); CO2, Blood 25 mmol/L (21-32); Calcium, Blood 7.6 mg/dL (8.5-10.1); Chloride, Blood 111 mmol/L (98-108); Creatinine, Blood 0.65 mg/dL (0.60-1.20); Globulin, Blood 3.5 g/dL (2.2-4.0); Glomerular Filtration Rate >60 (60-); Glucose, Blood 110 mg/dL (70-99); Magnesium, Blood 1.5 mg/dL (1.6-2.4); Phosphorus, Blood 2.7 mg/dL (2.5-4.9); Potassium, Blood 3.4 mmol/L (3.5-5.5); Sodium, Blood 143 mmol/L (136-145); Total Protein, Blood 5.3 g/dL (6.4-8.2)
--- NOTE | 2019-09-22 05:45 | NUR ---
SHIFT SUMMARY: NO SIGNIFICANT CHANGES TO MENTATION DURING SHIFT. PT BECAME HYPERTENSION DURING SHIFT AND WAS MEDICATED PER EMAR. PT HR HAS BEEN BETWEEN 115-130 BMP, UP TO 140 BMP WITH ACTIVITY. PT ALSO DEMONSTRATED S/S OF PAIN AND WAS MEDICATED ONCE FOR PAIN PER EMAR. DOHBOFF IN PLACE AND RUNNING @ 40MLS/HR. PT HAS BEEN HAVING WHITE THIN SECREATIONS, HOWEVER PT HAS A WEAK COUGH THEREFORE PERCUSSION THERAPY WAS INITIATED BY RT. PT REMAINS ON RA WITH SPO2 ABOVE 90%. PT HAS BEEN REPOSITIONED Q2HR. RECTAL TUBE IN PLACE AND 5CC OF WATER WAS ADDED TO BALLON TO PREVENT FURTHER LEAKAGE. BARRIER CREAM HAS BEEN APPLIED TO RITU AREA Q2HR. PT HAS BEEN SCRATCHING AREA. KAPOOR PATENT AND DRAINING CLEAR YELLOW URINE. BED AT LOWERST LEVEL. WILL CONTINUE TO MONITOR PT UNTIL REPORT IS GIVEN TO ONCOMING SHIFT.
--- NOTE | 2019-09-22 08:00 | NUR ---
INITIAL ASSESSMENT PATIENT RESTING QUIETLY IN BED UPON ENTERING ROOM. PATIENT SMILES AT NURSE. PATIENT SPEAKING TO SELF AND APPEARING TO BE TRYING TO TALK WITH NURSE. SPEECH IS GARBLED, SLURRED, AND INCOMPREHENSIBLE. PATIENT ORIENTED TO FOLLOWING SOME SIMPLE COMMANDS. PATIENT AFEBRILE. NO SIGNS OF PAIN OR DISCOMFORT AT THIS TIME. PATIENT SATTING 90% AND GREATER ON RA. LUNGS CLEAR IN UPPER LOBES AND DIMINISHED IN LOWER LOBES. PATIENT HAS OCCASIONAL PRODUCTIVE COUGH; PRODUCING SMALL AMOUNTS OF FROTHY, WHITE SPUTUM THAT HE SPITS OUT ONTO HIS CHIN AND CHEST. PATIENT IN ST, HR IN THE 30S. BP STABLE. SCDS IN PLACE. ABDOMEN MILDLY DISTENDED, SOFT, NONTENDER, WITH HYPERACTIVE BS NOTED. PATIENT HAS RECTAL TUBE IN PLACE THAT IS DRAINING BROWN, LIQUID STOOL. PIVOT 1.5 IMMUNE TF INFUSING AT GOAL RATE OF 40 MLS/ HOUR WITH 30 ML WATER FLUSH Q4H. KAPOOR IN PLACE, DRAINING DARK YELLOW URINE. RITU AREA MOIST, MACERATED, EXCORIATED, AND REDDENED. PATIENT HAS PITTING EDEMA IN BUES AND BLES. NONPITTING SCROTAL EDEMA NOTED BUT IS IMPROVING. PICC TO LUIS FLUSHED AND SALINE LOCKED. BED LOW, CALL LIGHT IN REACH. WILL CONTINUE TO MONITOR PATIENT FREQUENTLY THROUGHOUT SHIFT.
--- NOTE | 2019-09-22 11:24 | NUR ---
DR. COPPOLA IN ROOM TO SEE PATIENT.
--- NOTE | 2019-09-22 11:53 | NUR ---
PATIENT TALKING TO SELF AND WATCHING TV. PATIENT AFEBRILE. NO SIGNS OF PAIN OR DISCOMFORT. VSS. HR NOW IN 1-TEENS AFTER SCHEDULED AM METOPROLOL. NO OTHER ACUTE CHANGES TO NOTE ON AT THIS TIME. WILL CONTINUE TO MONITOR.
--- NOTE | 2019-09-22 16:27 | NUR ---
PATIENT PLACED BACK IN BED WITH CELING LIFT. PATIENT RESTING QUIETLY IN BED WITH NO SIGNS OF PAIN OR DISCOMFORT. VITAL SIGNS STABLE. NO ACUTE CHANGES TO NOTE ON. WILL CONTINUE TO MONITOR.
--- NOTE | 2019-09-22 17:31 | NUR ---
SHIFT SUMMARY PATIENT REMAINED ALERT, TALKING TO SELF AND APPEARING TO TRY AND SPEAK TO NURSE. PATIENT MOSTLY ONLY MAKES INCOMPREHENSIBLE SOUNDS BUT ANSWERS "YES" AND "NO" FROM TIME TO TIME, ALTHOUGH CANNOT MAKE OUT IF PATIENT IS ACTUALLY UNDERSTANDING WHAT NURSE IS SAYING. PATIENT DID REMAIN FOLLOWING SOME SIMPLE COMMANDS. PATIENT REMAINED AFEBRILE. PATIENT HAD NO SIGNS OF PAIN OR DISCOMFORT THROUGHOUT SHIFT. PATIENT REMAINED SATTING 90% AND GREATER ON RA. PATIENT REMAINED IN ST, HR 1-TEENS TO 130S. BP REMAINED STABLE. RECTAL TUBE REMAINS DRAINING BROWN, LIQUID STOOL. TF REMAINS INFUSING AT GOAL RATE OF 40 MLS PER HOUR WITH 30 ML WATER FLUSH Q4H. KAPOOR REMAINS DRAINING DARK YELLOW URINE. NYSTATIN ORDERED THIS SHIFT FOR RITU AREA AND AXILLI. PATIENT HAD COMPLETE BEDBATH THIS SHIFT. PATIENT OOB TO RECLINER THIS SHIFT. PATIENT HAS NO COMPLAINTS AT THIS TIME. BED LOW, CALL LIGHT IN REACH. WILL GIVE REPORT TO ONCOMING CLUTCH OPERATOR NURSE SHORTLY.
--- NOTE | 2019-09-22 22:26 | NUR ---
INITIAL ASSESSMENT: PT ALERT, FOLLOWING SOME COMMANDS, SPEECH IS GARBLED AND SLURRED. LUNG SOUNDS CLEAR BUT DIMINISHED. SATTING >90% ON RA. PT ST WITH HR 1-TEENS. BP IN 150S. DOBHOFF IN PLACE-0 RESIDUAL. RECTAL TUBE IN PLACE. PT HAS MILD DISTENSION WITH ACTIVE BT. KAPOOR IN PLACE DRAINING CLEAR YELLOW URINE. RITU AREA IS EXCORIATED-NYSTATIN IS ORDERED. BUE EDEMATOUS. SCROTUM EDEMATOUS. PICC TO LUIS INFUSING WITH TKO NS. PT IS CALM AND COOPERATIVE. BED IN LOWEST POSITION. CALL LIGHT IN REACH
[2019-09-23 04:35] LABS: BASOPHILS ABSOLUTE AUTO 0.03 K/mm3 (0.00-0.23); BASOPHILS PERCENT AUTO 0 % (0-2); EOSINOPHILS ABSOLUTE AUTO 0.16 K/mm3 (0.00-0.68); EOSINOPHILS PERCENT AUTO 2 % (0-6); Hematocrit 29.1 % (37.0-53.0); Hemoglobin 9.5 g/dL (13.5-17.5); IMMATURE GRAN ABSOLUTE AUTO 0.28 K/mm3 (0.00-0.10); IMMATURE GRAN PERCENT AUTO 4 % (0-1); LYMPHOCYTES PERCENT AUTO 26 % (21-46); MONOCYTES ABSOLUTE AUTO 0.83 K/mm3 (0.16-1.47); MONOCYTES PERCENT AUTO 11 % (4-13); Mean Corpuscular HGB 31.7 pg (26.0-34.0); Mean Corpuscular HGB Conc 32.6 g/dL (31.5-36.5); Mean Corpuscular Volume 97 fL (80-100); Mean Platelet Volume 9.7 fL (9.1-12.4); NEUTROPHILS ABSOLUTE AUTO 4.36 K/mm3 (1.96-9.15); NEUTROPHILS PERCENT AUTO 57 % (41-73); Platelet Count 305 K/mm3 (150-400); RDW Coefficient Variation 18.2 % (11.7-14.2); RDW Standard Deviation 58.7 fL (35.1-46.3); White Blood Cell Count 7.66 K/mm3 (4.00-11.30)
[2019-09-23 04:49] LABS: Anion Gap 5 mmol/L (6-16); Blood Urea Nitrogen 13 mg/dL (8-24); Bun/Creatinine Ratio 23.3 (12.0-20.0); CO2, Blood 26 mmol/L (21-32); Calcium, Blood 7.7 mg/dL (8.5-10.1); Chloride, Blood 112 mmol/L (98-108); Creatinine, Blood 0.56 mg/dL (0.60-1.20); Glomerular Filtration Rate >60 (60-); Glucose, Blood 105 mg/dL (70-99); Magnesium, Blood 1.9 mg/dL (1.6-2.4); Potassium, Blood 3.7 mmol/L (3.5-5.5); Sodium, Blood 143 mmol/L (136-145)
--- NOTE | 2019-09-23 06:35 | NUR ---
SHIFT SUMMARY: PT ALERT MAJORITY OF SHIFT. OPENS EYES AND IS ABLE TO FOLLOW SOME COMMANDS. PT AFEBRILE ALL SHIFT. LUNG SOUNDS CLEAR BUT DIMINISHED. SATTING >90% ON RA. PT ST WITH OCC PVCS. SBP RANGING FROM 130S-170S. HR IN THE 100S. BOWEL TONES PRESENT. RECTAL TUBE IN PLACE, PATENT AND DRAINING. KAPOOR IN PLACE DRAINING CLEAR YELLOW URINE. EXCORIATION TO RITU AREA AND BUTTOCKS. PICC LINE TO LUIS. FLUIDS RUNNING TKO. BED IN LOWEST POSITION, CALL LIGHT IN REACH
--- NOTE | 2019-09-23 08:15 | NUR ---
DR. FERNANDES AT BEDSIDE FOR ASSESSMENT. NO NEW ORDERS AT THIS TIME.
--- NOTE | 2019-09-23 12:12 | NUR ---
PT ARRIVAL TO UNIT. PT ARRIVED TO UNIT AT APROX 1200. PT'S VS STABLE. PT ABLE TO ANWER YES OR NO QUESTIONS. DOBHOFF, RECTAL TUBE AND KAPOOR ALL PATENT AND INTACT. TUBE FEED RUNNING PER ORDERS. SUCTION SET UP IN THE ROOM. WILL CONTINUE TO MONITOR
--- NOTE | 2019-09-23 19:09 | NUR ---
URINE TOX SCREEN PULLED FROM KAPOOR CATHETER. ACCIDENTAL REMOVAL OF KAPOOR THIS EVENING. DR. FERNANDES NOTIFIED, ORDER FOR NEW KAPOOR RECEIVED. 14 L[place] KAPOOR CATHETER PLACED USING STERILE TECHNIQUE. PT TOLERATED FAIRLY WELL. DRAINING YELLOW URINE WITH SEDIMENT, UA SENT PER PROTOCOL.
[2019-09-23 19:21] LABS: Source, Urine Catheter
[2019-09-23 19:24] LABS: Bilirubin, Urine Neg (Neg); Blood, Urine 2+ (Neg); Glucose Qualitative, Urine Neg (Neg); Ketones, Urine Neg (Neg); Leukocyte Esterase, Urine Neg (Neg); Nitrite, Urine Neg (Neg); Protein, Urine 2+ (Neg); Urobilinogen, Urine NORM (Normal)
[2019-09-23 19:44] LABS: Appearance, Urine Hazy (Clear); Color, Urine Yellow (P-Yellow)
[2019-09-23 19:45] LABS: Squamous Epithelial Cells Few /hpf (Few); White Blood Cells, Urine 0-2 /hpf (0-5)
[2019-09-23 19:46] LABS: Amorphous Mod (0-Heavy); Bacteria Few /hpf
[2019-09-23 19:48] LABS: U Amphetamine Screen Not Detected; U Barbituate Screen Not Detected; U Benzodiazapine Screen Not Detected; U Buprenorphine Screen Not Detected; U Cannabinoids Screen Not Detected; U Cocaine Screen Not Detected; U Methadone Screen Not Detected; U Methamphetamine Screen Not Detected; U Opiates Screen Not Detected; U Oxycodone Screen Not Detected; U Phencyclidine Screen Not Detected; U Propoxyphene Screen Not Detected
--- NOTE | 2019-09-23 21:42 | NUR ---
CHANGED FEED TO JEVITY 1.2 @ 55 ML/H, Remains agitated, continues to attempt to talk but no understandable words, compliant with care, loja, kangaroo pump attached and working as designed, will continue to monitor and treat
[2019-09-24 04:22] LABS: BASOPHILS ABSOLUTE AUTO 0.03 K/mm3 (0.00-0.23); BASOPHILS PERCENT AUTO 0 % (0-2); EOSINOPHILS ABSOLUTE AUTO 0.14 K/mm3 (0.00-0.68); EOSINOPHILS PERCENT AUTO 2 % (0-6); Hematocrit 30.9 % (37.0-53.0); Hemoglobin 9.7 g/dL (13.5-17.5); IMMATURE GRAN ABSOLUTE AUTO 0.26 K/mm3 (0.00-0.10); IMMATURE GRAN PERCENT AUTO 3 % (0-1); LYMPHOCYTES ABSOLUTE AUTO 2.71 K/mm3 (0.84-5.20); LYMPHOCYTES PERCENT AUTO 32 % (21-46); MONOCYTES ABSOLUTE AUTO 0.82 K/mm3 (0.16-1.47); MONOCYTES PERCENT AUTO 10 % (4-13); Mean Corpuscular HGB Conc 31.4 g/dL (31.5-36.5); Mean Corpuscular Volume 99 fL (80-100); NEUTROPHILS ABSOLUTE AUTO 4.46 K/mm3 (1.96-9.15); NEUTROPHILS PERCENT AUTO 53 % (41-73); Platelet Count 364 K/mm3 (150-400); RDW Coefficient Variation 17.4 % (11.7-14.2); RDW Standard Deviation 58.9 fL (35.1-46.3); Red Blood Cell Count 3.13 M/mm3 (4.30-5.90); White Blood Cell Count 8.42 K/mm3 (4.00-11.30)
[2019-09-24 04:54] LABS: Magnesium, Blood 1.8 mg/dL (1.6-2.4)
[2019-09-24 04:55] LABS: Anion Gap 7 mmol/L (6-16); Blood Urea Nitrogen 14 mg/dL (8-24); Bun/Creatinine Ratio 24.7 (12.0-20.0); CO2, Blood 26 mmol/L (21-32); Chloride, Blood 109 mmol/L (98-108); Creatinine, Blood 0.57 mg/dL (0.60-1.20); Glomerular Filtration Rate >60 (60-); Glucose, Blood 100 mg/dL (70-99); Potassium, Blood 3.6 mmol/L (3.5-5.5); Sodium, Blood 142 mmol/L (136-145)
--- NOTE | 2019-09-24 07:55 | NUR ---
danhof pump running well, rectal tube and cath working as designed, saline locked, rm air, call light in reach, bs report shared with day shift and pt
--- NOTE | 2019-09-24 18:07 | NUR ---
SHIFT NOTE PT WAS LETHARGIC AT BEGINIG OF SHIFT. PT WITH 2MM PUPILS THAT WERE PERRL. PT LOOKS TO VERBAL STIMULI, OCCASIONALLY ANSWERING QUESTIONS IN 1 WORD SENTENCES, WITH VERY GARBLED SPEECH. PT REMOVED HIS OWN FEEDING TUBE EARLY INTO THIS SHIFT, WHICH WAS NOT REPLACED. SPEECH THERAPY FOLLOWED UP WITH PT, PT WAS PLACED ON NECTAR THICK DIET, PT REFUSED TO EAT OR DRINK. PT DID BECOME MORE ALERT DURING THIS SHIFT, PT NOTED TO THROW A PILLOW THAT WAS ON HIS BED, PT IS TALKING MORE BUT SPEECH IS PROFOUNDLY GARBLED. PT DID HOWEVER EAT APPROXIMATELY 1/3 OF HIS DINNER TRAY WITH ASSISTANCE FROM THIS RN.
--- NOTE | 2019-09-24 20:28 | NUR ---
PT ALERT TO SELF AND REQUIRES CUES WITH ALL QUESTIONS, THOUGHT PROCESS DISORGANIZED, ABLE TO TAKE SIPS THICKENED FLUIDS VIA SPOON BY THIS NURSE
--- NOTE | 2019-09-25 00:13 | NUR ---
2328: RECEIVED REPORT FROM RUBÉN ADAMS AND PT ARRIVED TO [facility]. PT LARGELY MOM-VERBAL, OPENS HIS EYES WHEN DISTURBED AND SMILES THEN DRIFTS BACK OFF. RANDOMINCOMPREHENSIBLE TALK TO HIMSELF, SOUND COARSE IN HIS UPPER BRONCHIOLES LIKE HE MAY BE ASPIRATING. SUCTION PERFORMED LIMITED ORAL CARE PERFORMED. PLACED STAT LOCK AND PJ BOTTOMS TO PROTECT THE KAPOOR CATHETER PICC LINE LUIS C/D/I WRAPPED WITH KARO WRAP TO PROTECT IT. PT RESISTANT TO TREATMENT, LARGELY UNAWARE OF HIS SURROUNDINGS. BED LOW AND LOCKED. CALL MCCULLOUGH WITHIN REACH.
--- NOTE | 2019-09-25 08:28 | NUR ---
PATIENT DID NOT EAT BREAKFAST THIS SHIFT DUE TO BEING NPO AT THIS TIME. RN NOTIFIED.
--- NOTE | 2019-09-25 09:08 | NUR ---
Joint visit with [facility]. Pt resting in bed and appears agitated as evidenced by intermittent swinging of arm towards this RN. Pt is verbal but speech is unrecognizable. Gurgles noted with breathes. Discussed case with Maida. Pt pulled DobHoff out and Pt requires to be fed. Earlier Pt was unable to move upper extremities or squeeze hands. Pt was able to move his arm during visit. Concerns discussed on Pt's inappropriateness of having items including food left in front of him. Maida reports Pt is impulsive and will attempt to put any item that may look like food in his mouth. Palliative care will remain for theraputic visits.
--- NOTE | 2019-09-25 16:15 | NUR ---
Discussed case with alexander De Los Santos and [facility] today. Collaberated with palliative care team. At this point Pt has no clear healthcare decision maker. Pt has a son who is questionable in appropriateness to make decisions as evidenced by palliative care nurse's interaction with son (see palliative care note from 09/16/19). Multi discipline meeting including additional ethics consult should be considered. Goals of care including comfort care may need to be considered. Pt has removed his DobHoff and would likely pull a G-Tube. Currently he is NPO with the possibility of having aspirated. Prognostication Scores PPS 20% [place] 20% FAST 7D ADLs 04/18 Palliative Care will remain available.
--- NOTE | 2019-09-25 16:43 | NUR ---
PATIENT HAS SLEPT MOST OF THE SHIFT. HE WORKED WITH OT AND WAS SITTING ON SIDE OF BED USING HIS AMRS SHE DIRECTED. DURING THE SHIFT HE HAD EPISODES WHERE HE WAS UNABLE TO LIFT ARMS OR SQUEEZE THIS NURSE HANDS. HE CONTINUES TO HAVE SMALL TREMORS OR JERK LIKE MOVEMENTS. DIET CHANGED TO PUREE AND THICKENED LIQUIDS. HE HAD 3 SWALLOWS AND STARTED TO COUGH. DRINK WAS HELD. HE REQUIRES A ONE TO ONE FEED AT ALL TIMES.
--- NOTE | 2019-09-25 16:57 | NUR ---
PATIENT DECLINED DINNER THIS SHIFT. WHEN I TRIED TO FEED PATIENT, HE DECLINED BY TURNING HIS HEAD AWAY AND MUMBLED SOMETHING. I TRIED A COUPLE MORE TIMES BEFORE STOPPING. RN WAS NOTIFIED.
--- NOTE | 2019-09-25 16:58 | NUR ---
EARLY TRAYS WERE ORDERED FOR THE PATIENT HE IS A FEEDER. RN NOTIFIED.
--- NOTE | 2019-09-25 17:44 | NUR ---
Spoke with bedside nurse Lois and discussed case. Lois reports Pt is no longer NPO. Pt resting in bed and Lois offers food. Pt takes 10 bites of dinner and appears to tolerate. Pt appears anxious as evidenced by pulling at his PICC line. Assisted Lois with wraping PICC line with Koban. Pt grabs empty coban roll and throws it. Discussed case further with Lois. Palliative Care will remain available.
--- NOTE | 2019-09-26 07:15 | NUR ---
PATIENT REMAINS LARGELY NON-VERBAL. UTTERANCES ARE INCOMPREHENSIBLE ASIDE FROM AN OCCASIONAL WORD. A CHILD-LIKE MANNER, THE PATIENT DID ONCE ATTEMPT TO HOLD HIS ARM UP REQUESTED, BUT LOSES FOCUS/INTEREST QUICKLY. PT IS DEPENDENT ON CAREGIVERS FOR CARE, AND FEEDING. AT THIS TIME HE CAN ONLY TAKE ABOUT HALF DOZEN SMALL TEASPOONS BEFORE HE STARTS COUGHING. I RELAYED THIS INFO TO DR COPPOLA HE CAME BY TO SEE THE PATIENT LAST NIGHT. [place] REMAINS IN PLACE. HIS SKIN IS IMPROVING. REPORTED OFF TO DAY RN
--- NOTE | 2019-09-26 17:38 | NUR ---
SHIFT SUMMARY PT HAS BEEN NPO ALL SHIFT DUE TO ASPIRATION. PLANS FOR PT TO HAVE PEG TUBE PLACED. PT HAS HAD ELEVATED HEART RATE AND BLOOD PRESSURE. THIS RN TALKED WITH DR. PALOMINO ABOUT PARAMETERS FOR HYDRALAZINE AND THAT HEART RATE HAS BEEN IN THE 100-115. DR. PALOMINO ORDERED METOPROLOL IV FOR HEART RATE GREATER THAN 120 AND WANTED THE TELE PLACED ONLY IF PT NEEDS THE IV METOPROLOL. PT APPEARS COMFORTABLE. PT HAS GARBLED SPEECH/WORD SALAD. AT TIMES, THIS RN CAN UNDERSTAND SOME OF PT'S WORDS. NO BM TODAY. KAPOOR PATENT AND DRAINING CLEAR, YELLOW URINE. IVF INFUSING VIA PICC. NO ACUTE CHANGES THIS SHIFT. CALL LIGHT IN REACH. BED ALARM ON FOR SAFETY. WILL CONTINUE TO MONITOR AND REPORT TO ONCOMING RN.
--- NOTE | 2019-09-26 17:57 | NUR ---
Clinical Visit: Pt is reclined in bed. He is laying slightly sideways and has his catheter bag that he is pulling on. It was all the way down in his pajama pant leg, however, somehow he found it and is now pulling on it. He smiles when I walk in the room. He is talking nonsensically. Nurse rights him in bed and fixes his catheter bag away from him. He is winking and smiling. He appears very child-like. Spoke to Alice, nurse. Reviewed details of the case. She states that she has to keep everything away from the pt, because he wants to play with everything. He even grabs the IV pole and pulls on it. Plan is for a PEG tube tomorrow with an abd binder. Will remain available.
--- NOTE | 2019-09-27 16:09 | NUR ---
HE HAS BEEN TALKING TO HIMSELF ALL AFTERNOON. HE IS USING REAL WORDS BUT IT IS WORD SALAD. HE ALSO SCOOTS HIS LEGS ON THE BED CONSTANTLY HE TALKS. ANKLE PROTECTORS ON. HE HAS BEEN TURNED Q 2HRS. NPO. LR INFUSING. THIS IS ALL WANTS INFUSING AT THIS TIME. ANTWON PATENT. THE TUBING IS WORN UNDER PAJAMA BOTTOMS. HE HAS NOT TRIED TO PICK AT OR PULL ON HIS PICC LINE. NYSTATIN POWDER USED IN YEAST RASH AREAS AND BLUE TOP BARRIER CREAM USED IN OTHER REDDENED AREAS. HE IS TACHYCARDIC AND HYPERTENSIVE BUT BELOW THE MEDICATION PARAMETERS FOR BOTH. HE HAD A FRIEND SOFIYA COME SEE HIM TODAY FOR ABOUT AN HOUR.
--- NOTE | 2019-09-28 06:25 | NUR ---
SHIFT SUMMARY: PATIENT IS ALERT, SPEECH IS GARBLED BUT SOME WORDS ARE UNDERSTANDABLE. PATIENT HAS NO S/S OF PAIN OR DISCOMFORT. BP'S ARE ELEVATED BUT JUST UNDER THE PARAMETERS FOR IV LOPRESSOR TO BE GIVEN. LR IS INFUSING VIA PICC IN RIGHT ARM WITHOUT DIFFICULTY. BED ALARM IS ON FOR SAFETY.
--- NOTE | 2019-09-28 17:33 | NUR ---
SHIFT SUMMARY: NO ACUTE CHANGES TO REPORT THIS SHIFT. PT HAS ANOXIC BRAIN INJURY R/T CPR. PT IS PLEASANT, COOPERATIVE WITH CARE. ON BEDREST. APRESOLINE PRN FOR SBP >160; PT REMAINS HYPERTENSIVE R/T INABILITY TO SWALLOW PO CARDIAC MEDS. AWAITING ETHICS CONSULT R/T PEG TUBE PLACEMENT. WCTM.
--- NOTE | 2019-09-28 18:26 | NUR ---
PATIENT PULLED PICC LINE: PICC LINE PULLED BY PATIENT; 50CM LENGTH VERIFIED; NO EXTERNAL BLEEDING; DRESSING APPLIED. PER CONVERSATION WITH DR, ATTEMPT TO GET NEW IV ACCESS FOR SOLU-MEDROL & ANTIHYPERTENSIVES. VERBAL ORDER FOR RESTRAINTS IF PT BECOMES AGITATED. WCTM.
--- NOTE | 2019-09-29 03:15 | NUR ---
CONTINUE TO REPOSITION PT ABOUT EVERY TWO HRS FOR COMFORT AND SKIN MAINENANCE. INCONT OF FECES X 1. CATHETER INTACT DRAINING CCLEAR OSBALDO. VERBAL RESPONSE GARBLED AND MOSTL UNABLE TO DECIPHER BUT AFFECT CHEERFUL WHEN SPEAKING TO HIM. WAS TEARY EYED X 1, BUT SEEMED TO CHEER UP WHEN STAFF VOICED HE WAS IMPORTANT. BP CONTINUES TO BE ELEVATED AT TIMES - SEE MAR FOR MEDS GIVEN. CALL LIGHT IN REACH.
--- NOTE | 2019-09-29 17:40 | NUR ---
SHIFT SUMMARY: NO ACUTE CHANGES TO REPORT THIS SHIFT. PT HAS ANOXIC BRAIN INJURY R/T ARREST & CPR; PT PLEASANT; CONFUSED; SPEACH GARBLED, UNINTELLIGIBLE. PT IN NO APPARENT DISTRESS. KAPOOR IN PLACE; PATENT AND DRAINING. AWAITING ETHICS CONSULT DECISION R/T PEG TUBE PLACEMENT; PT STRICT NPO. WCTM.
--- NOTE | 2019-09-30 05:21 | NUR ---
WATER PIPE INSTALLER SUMMARY NO ACUTE CHANGES THIS SHIFT. PT AAOX1, PLEASANT AND COOPERATIVE WITH CARE. ABLE TO COMMUNICATE WITH 1 WORD ANSWERS ON OCCASION. DENIES PAIN. REQUIRES ASSIST WITH REPOSITIONING. PT AWAITING POSSIBLE PLACEMENT OF PEG TUBE, AWAITING DECISION FROM ETHICS CONSULT. VSS, WILL CONTINUE TO MONITOR.
--- NOTE | 2019-09-30 08:45 | NUR ---
PT AWAKE, SMILED WHEN WALKED IN ROOM AND TALKED TO HIM. VERY LITTLE RESPONSE. SOME NODDING. VERY QUITE. 1-2 WORDS. FOLLOWS SOME COMMANDS. H/R REG, NO MURMER NOTED. NO TELE. LUGS CLEAR, RESP EASY, UNLABORED. ON R.A. BT HYPOACTIVE. LAST BM NOT KNOWN BY PT. VOIDS KAPOOR CATH, CLEAR YELLOW FLUID DRAINING. BED IN LOW POSITION, CALL LITE IN REACH, BED ALARM ON FOR SAFETY.
--- NOTE | 2019-09-30 17:25 | NUR ---
PT PLEASANT TODAY. ONLY ONE WORD AT A TIME. VERY QUIET. STARTED IV FLUIDS. CALLED DR COPPOLA TO FIND OUT ON PEG TUBE. HE STATES NEEDS ETHICS APPROVAL. HE TO CALL DR HERRING TO FIND OUT STATUS. NO OTHER CONCERNS AT THIS TIME. BED IN LOW POSITION, CALL LITE IN REACH, BED ALARM ON FOR SAFETY
--- NOTE | 2019-10-01 04:57 | NUR ---
SHIFT SUMMARY PT CONFUSED AT TIMES, DOES BEST WITH Y/N QUESTIONS. LS CLEAR, DENIES SOB. NO C/O NAUSEA OR PAIN. Q2 TURN. L ELBOW ABRASION. RED BOTTOM AND GROIN FOLDS, NYSTATIN POWDER APPLIED. 3L O2 OVERNIGHT. R FA HAS LR @ 125. KAPOOR DRAINING WELL. NPO. PEG TUBE PLACEMENT @ 1630 TODAY. SUCTION SWABS PRN. HYDRALAZINE GIVEN @ 0345 FOR BP 174/109, RECHECK WAS 139/98. UNSURE OF DC PLAN AT THIS TIME.
--- NOTE | 2019-10-01 11:23 | NUR ---
metwith pura mix today to review plan of care. suggest multidisciplinary team meeting as pt lacks family support.
--- NOTE | 2019-10-01 13:39 | NUR ---
HE HAS BEEN SLEEPING OFF AND ON. HE ALSO WORKED WITH PT AND OT. HE WAS ABLE TO STAND A FEW TIMES WITH HELP. NO STEPS YET THAT I KNOW OF. HE REMAINS NPO WITH LR INFUSING. PLANNED PEG INSERTION FOR LATE TODAY. HIS ABILITY TO FOLLOW INSTRUCTIONS IS INTERMITTENT. NO VISITORS. HE APPEARS COMFORTABLE.
--- NOTE | 2019-10-01 15:50 | NUR ---
HE HAS HAD NO PO INTAKE FOR DAYS. NO BM EITHER. ANTWON PATENT. NO CHANGES.
--- NOTE | 2019-10-01 16:50 | NUR ---
HIS PEG PLACEMENT HAS BEEN POSTPONED TO TOMORROW D/T 'S SCHEDULE. HE REMAINS NPO WITH LR INFUSING. I NOTIFIED . NO OTHER CHANGES.
--- NOTE | 2019-10-01 21:57 | NUR ---
PT PULLED KAPOOR CATHETER OUT, BALLOON NOTED INTACT. NEW 14FR KAPOOR CATHETER INSERTED W/STERILE TECHNIQUE MAINTAINED. PROCEDURE EXPLAINED AND PT NODDED YES TO UNDERSTANDING THAT NEW KAPOOR WAS NEEDED BUT IT TOOK 3 STAFF TO INSERT NEW KAPOOR D/T PT MOVING AND UNABLE TO FOLLOW COMMANDS TO HOLD STILL/RELAX.
--- NOTE | 2019-10-02 02:58 | NUR ---
SOFT WRIST RESTRAINT ORDERS OBTAINED D/T PT CONTINUING TO PULL AT KAPOOR AND IV AFTER HAVING ALREADY REMOVED KAPOOR ONCE TONIGHT. WILL COMMENCE RESTRAINTS AND MONITORING.
--- NOTE | 2019-10-02 05:55 | NUR ---
SUMMARY: PT SEEMS TO BE ORIENTED TO SELF ONLY AND CAN ANSWER SOME YES/NO Q'S BUT RESPONDS MOSTLY W/WORD SALAD. HE HAS DIFFICULTY FOLLOWING COMMANDS AND DOESN'T ALWAYS APPEAR TO UNDERSTAND CONVERSATION. PT PULLED KAPOOR OUT AND IT REQUIRED 3 STAFF TO REPLACE IT D/T FIGITING AND RESTLESSNESS. HE HAS SINCE CONT'D TO PULL AT IV LINE AND CATHETER SO WRIST RESTRAINTS WERE RX'D AND APPLIED AT O3OO. PT IS CALM AND PLEASANT MUCH OF THE TIME BUT HAS MOMENTS OF AGGITATION AND NONCOMPLIANCE. RITU AREA IS RED/EXCORIATED W/NYSTATIN APPLIED. RASH OBSERVED TO BACK AND CREAM APPLIED TO SKIN WHERE PT HAD BEEN ITCHING. PT STILL NEEDS PEG TUBE PLACEMENT AND REMAINS NPO FOR PROBABLE SX TODAY. PO MEDS HELD. MOUTH CARE DONE. LR INFUSING AT 125 ML/HR. NO PRN HYDRALAZINE REQUIRED. VSS AND AFEBRILE, NO ACUTE CHANGES. WCTM AND REPORT TO DAY RN.
--- NOTE | 2019-10-02 17:05 | NUR ---
10/02/19 1705 KOBI TERAN History, Chart, Medications and Allergies reviewed before start of procedure.3-LEAD EKG REVIEWED WITH PHYSICIAN PRIOR TO START OF PROCEDURE.O2 VIA N/C INTACT THROUGHOUT SEDATION/PROCEDURE. MONITOR INTACT WITH CONTINUOUS PULSE OXIMETRY AND INTERMITTENT BP.See Anesthesia record.
--- NOTE | 2019-10-02 17:21 | NUR ---
SHIFT SUMMARY NO ACUTE CHANGES TO PRESENT THIS SHIFT. PT SLEEPING DURING SHIFT REPORT THIS AM. BL SOFT WRIST RESTRAINTS IN PLACE D/T PT PULLING OUT KAPOOR CATH AND IV SITES. PT CONFUSED AND AGITATED, GRABBING AT ANYTHING IN REACH. PT NPO AND WAITED FOR PEG TUBE PLACEMENT TODAY; PRESENTLY IN SX AT THIS TIME NOW. DAY SX CALLED EARLIER TO CONFIRM ETHICS CONSULT AND PLAN OF CARE. NASH JACOBS NOTIFIED WELL DR HERRING. AFTER DISCUSSION AND CLARIFICATION, DAY SX NOTIFIED TO PROCEED. 1739 DAY SX CALLED TO REPORT PT'S PROCEDURE WENT WELL. WILL RETURN TO SOON. ORDERS PER DR COPPOLA TO NOT USE PEG TUBE TONIGHT. DR COPPOLA TO RE-EVAL TOMORROW AND WILL LET US KNOW WHEN TO USE IT. WILL CONTINUE TO MONITOR UNTIL REPORTING OFF TO ONCOMING SHIFT. PICTURES TAKEN OF PT'S INITIAL WOUNDS ON THIGHS, BUTTOCKS, AND RITU AREA. HEALED AND HEALING VERY WELL. PT AWAKE TO RM, SLIDE TX TO BED. RESTRAINTS IN PLACE PT ALREADY PULLING AT EVERYTHING IN REACHABLE. BED ALARM ON FOR SAFETY. CALL LT IN REACH.
--- NOTE | 2019-10-02 21:50 | NUR ---
PT RESTING COMFORTABLY, BILATERAL WRIST RESTRAINTS INTACT, PEG TUBE SITE DRESSING DRY AND INTACT WITH ABDOMINAL BINDER INTACT, ABLE TO VOICE ONLY 1-2 WORDS, OTHERWISE UNABLE TO CARRY ON ORGANIZED CONVERSATION, THOUGHT PROCESS DISORGANIZED.
--- NOTE | 2019-10-03 04:23 | NUR ---
SHIFT SUMMARY: 58 Y/O MALE RESTED COMFORTABLY ALL SHIFT, PT ALERT PERSON ONLY AND ONLY SPEAKS 1-2 WORDS, THOUGHT PROCESS DISORGANIZED, PT BILATERAL WRIST RESTRAINTS MAINTAINED DUE RISK PULLING OUT IVS/KAPOOR AND PEG TUBES (NEWLY INSERTED 10/02), BED ALARM APPLIED, BED LOW POSITION WITH CALL LIGHT AT SIDE.
--- NOTE | 2019-10-03 12:51 | NUR ---
PT STILL CALM AND COMPLIANT SMILES WHEN STAFF TALK TO HIM. PT HAS NO S&S OF PAIN OR DISTRESS NOTED AT THIS TIME. PT ASSISTED BACK TO BED FROM THE W/C 2PA FOR SAFETY, ATTENDS CLEAN AND DRY. ABD BINDER IN PLACE COVERING THE NEW PEG TUBE. RIGHT AC IV STILL IN PLACE AND COVERED FOR SAFETY. CALLED PHOTOENGRAVING SUPERVISOR TO ENSURE PT IS AGAIN ON THE MONITOR AND REQUESTED A CALL IF PT BEGINS TO TRY FOR HIS LINES OR TUBES, AT THIS TIME HE SEEMS TO HAVE LITTLE INTEREST IN THEM. WILL CTM. NO RESTRAINTS NEEDED AT THIS TIME, ORDER WAS DC'D IN ORDER MANAGEMENT THIS MORNING.
--- NOTE | 2019-10-03 14:00 | NUR ---
RACHEL BOLUS FEED COMPLETED- 30ML FLUSH OF WATER BEFORE AND AFTER BOLUS FEED OF 120ML OF JEVITY. PT TOLLERATED WELL. WILL CONT TO MONITOR FOR ANY SIGNS OF GI UPSET, NAUSEA, HICCUPS, BELCHING, ABD PAIN ETC. NO SIGN OF DISCOMFORT AT THIS TIME.
--- NOTE | 2019-10-03 16:49 | NUR ---
SHIFT SUMMARY- PT HAS BEEN WITH OUT RESTRAINT KAPOOR AND IVF FOR MOST OF THE DAY. BP IS LOWER ON EVENING VITALS. OK TO USE PEG TUBE FOR MEDICATIONS AND FEEDINGS. PT RECIEVED FIRST BOLUS FEED AT 1400 AND SEEMS TO BE TOLLERATING WELL. NEXT FEEDING SCHEDULED FOR 1800. DR COPPOLA CAME TO SEE THE PT THIS EVENING AND REQUESTED REPEAT SWALLOW EVAL PT COGNITIVE STATUS HAS IMPROVED, REPEAT SWALLOW EVAL ORDERED FOR MONDAY MORNING. PT MAY BE ABLE TO EVENTUALLY SWALLOW SOME FOOD. CURRENTLY PT IS NPO.
--- NOTE | 2019-10-03 17:04 | NUR ---
Spiritual CAre routine visit: Edwin was awake, smiled easily, and appears comfortable. His speech is garbled, but some words are understandable. He denies pain. He appeared to enjoy companionship and encouragement. He was very pleasant and open to visit. [facility] services will remain available.
--- NOTE | 2019-10-03 21:35 | NUR ---
2000 PTS BILATERAL WRIST RESTRAINTS MAINTAINED AFTER PATIENT CONTINUED ATTEMPT REMOVE PEG TUBE AND IV, SPEECH GARBLED, THOUGHT PROCESS DISORGANIZED, REQUIRES FREQUENT REDIRECTION FROM NURSING STAFF TO ASSIST WITH ALL ADLS, DENIES PAIN OR NAUSEA, NO RESIDUALS NOTED VIA NG TUBE.
--- NOTE | 2019-10-04 04:34 | NUR ---
SHIFT SUMMARY: 58 Y/O MALE RESTED COMFORTABLY ALL SHIFT, OCCASIONAL ATTEMPTS TO PULL AT ABDOMINAL BINDER NOTED, BILATERAL SOFT WRIST RESTRAINTS MAINTAINED, PT CONTINUES TO SPEAK 1-2 WORDS THAT ARE DIFFICULT TO UNDERSTAND AT TIMES, ALERT TO PERSON ONLY, NO RESIDUALS NOTED VIA PEG TUBE WHEN BOLUS FEEDING GIVEN OR WHEN WATER INFUSED, BED ALARM APPLIED, BED LOW POSITION WITH CALL LIGHT AT SIDE.
[2019-10-04 05:10] LABS: Hematocrit 39.5 % (37.0-53.0); Hemoglobin 12.5 g/dL (13.5-17.5); Mean Corpuscular HGB 29.9 pg (26.0-34.0); Mean Corpuscular HGB Conc 31.6 g/dL (31.5-36.5); Mean Platelet Volume 9.2 fL (9.1-12.4); Platelet Count 336 K/mm3 (150-400); RDW Coefficient Variation 15.6 % (11.7-14.2); RDW Standard Deviation 53.3 fL (35.1-46.3); Red Blood Cell Count 4.18 M/mm3 (4.30-5.90); White Blood Cell Count 15.77 K/mm3 (4.00-11.30)
[2019-10-04 05:11] LABS: Mean Corpuscular Volume 95 fL (80-100)
[2019-10-04 05:33] LABS: Anion Gap 6 mmol/L (6-16); Blood Urea Nitrogen 12 mg/dL (8-24); Bun/Creatinine Ratio 16.4 (12.0-20.0); CO2, Blood 29 mmol/L (21-32); Calcium, Blood 8.6 mg/dL (8.5-10.1); Chloride, Blood 104 mmol/L (98-108); Creatinine, Blood 0.73 mg/dL (0.60-1.20); Glomerular Filtration Rate >60 (60-); Glucose, Blood 120 mg/dL (70-99); Magnesium, Blood 1.4 mg/dL (1.6-2.4); Phosphorus, Blood 3.8 mg/dL (2.5-4.9); Potassium, Blood 3.7 mmol/L (3.5-5.5); Sodium, Blood 139 mmol/L (136-145)
--- NOTE | 2019-10-04 07:00 | NUR ---
ASSUMED CARE OF PT- REPORT RECIEVED FRO NIGHT [place]. PER REPORT PT HAD NO ACUTE CHANGES T/O THE NIGHT, PT CONTINUES TO VOID INCONTINENTLY. NO BM'S OF YET WILL CTM. PT HAS HAD NO INPUT IN THE PAST 8 DAYS UNTIL YESTERDAY EVENING.
--- NOTE | 2019-10-04 14:16 | NUR ---
RECIEVED A CALL FROM DR COPPOLA- ORDER TO GIVE 4MG IV MORPHINE AND 2MG IV ATIVAN NOW TO PREPARE PT FOR DR COPPOLA. ORDER CAME THROUGH PO CALLED TO CONFIRM IT IS IV. PER DR COPPOLA PREVIOUS PO ORDER DC'D AND 2MG IV ATIVAN ORDERED. PT WILL RECIEVE MED AFTER VERIFIED BY PHARMACY.
--- NOTE | 2019-10-04 14:37 | NUR ---
DR ARRIVED AT BEDSIDE MEDS WERE GOING TO BE GIVEN AND SAID HE HAS ANOTHER PROCEDURE NOW WAIT TO GIVE UNTIL LATER WHEN HE CAN COME AGAIN. DOCUMENTATION WAS PENDING AND MEDS WERE DOCUMENTED HELD. DR WANTED MEDS HELD BUT THEY WERE DRAWN UP THEY WERE WASTED MEDS WILL HAVE TO BE REORDERED.
--- NOTE | 2019-10-04 15:11 | NUR ---
RECIEVED A CALL FROM DR COPPOLA HE WANTS THE 4 IV MORPHINE AND 2 IV ATIVAN GIVEN NOW. TOLD HIM PT REMOVED HIS IV IT COLD TAKE A BIT TO REGAIN ACCESS. DR HEBERT. MEDS REORDERED.
--- NOTE | 2019-10-04 15:33 | NUR ---
MULTIPLE ATTEMPTS FOR IV START HAVE FAILED. WAITING FOR ANOTHER PERSON TO ATTEMPT IV START WITH ULTRASOUND.
--- NOTE | 2019-10-04 16:08 | NUR ---
PT RECIEVED 4MG IV MORPHINE AND 2MG IV ATIVAN DR COPPOLA NOTIFIED AT THE TIME PUSH WAS STARTED. PT WAS PLACED IN BILATERAL SOFT WRIST RESTRAINT AFTER NEW IV ACCESS REGAINED NEW ORDER FROM DR HERRING FOR RESTRAINT TO PROTECT LINES AND TUBES.
--- NOTE | 2019-10-04 17:37 | NUR ---
SHIFT SUMMARY- PT PULLED OUT HIS IV IN THE RIGHT AC HE HAS A NEW 18G IN THE LEFT FA, PLACED WITH ULTRASOUND. IV MUST BE PROTECTED IT IS GETTING VERY DIFICULT TO PLACE IV'S HE IS RUNNING OUT OF VIABLE VEINS. SPOKE TO DR HERRING, PT NOW IN BILATERAL WRIST RESTRAINTS. AFTER MEDS HE IS SLEEPING AT THIS TIME, RESTRAINT IN PLACE TO KEEP LINES AND TUBES SAFE. DR COPPOLA SAID PT MAY WAKE UP AFTER MEDS AND BE MORE READY TO PULL AT LINES AND TUBES BECAUSE PAIN THRESH HOLD WILL BE LOW. PT 6PM FEEDING IS ABOUT TO BE DONE, HOB ELEVATED, PT SLEEPING SOUNDLY AT THIS TIME, PILLOWS FOR COMFORT. O2 SATS IN THE 90'S ON ROOM AIR. NO S&S OF PAIN OR DISTRESS NOTED. PT ON MONITOR FOR SAFETY. BED ALARM SET. ATTENDS C/D/I AT THIS TIME.
--- NOTE | 2019-10-04 21:16 | NUR ---
EVENING TUBE FEEDING HELD TUBE FEEDING DUE TO RESIDUAL > 200 ML. HYPOACTIVE BOWEL SOUNDS IN ALL 4 QUADRANTS. WILL CHECK AGAIN AT MIDNIGHT.
--- NOTE | 2019-10-05 05:52 | NUR ---
SHIFT SUMMARY PT IS A 58 Y/O MALE, ADMITTED FOR SEPSIS. PT IS CURRENTLY NPO WITH A PEG TUBE IN PLACE. HE IS RECEIVING BOLUS FEEDINGS. BEDTIME FEEDING WAS HELD DUE TO RESIDUAL OF > 200 MLS. PT SLEPT WELL DURING THE NIGHT, THOUGH HE DID OPEN HIS EYES TO VOICE AND WAS MORE RESTLESS THIS AM. PT IS CURRENTLY IN BILATERAL WRIST RESTRAINTS TO PROTECT HIS LINES AND PEG TUBE. NO COMPLAINTS OR S/S OF PAIN, NAUSEA OR SOB. PT'S BP WAS LOW DURING THE EVENING, AT 97/63 AND 96/64 ON RECHECK, THOUGH IT CAME BACK UP TO 102/73 BY MIDNIGHT. ALL OTHER VITALS STABLE. NO OTHER ACUTE CHANGES IN PT CONDITION NOTED DURING THE NIGHT. WILL CONTINUE TO MONITOR AND TREAT PER EMAR UNTIL HAND OFF TO DAY SHIFT RN.
--- NOTE | 2019-10-05 17:42 | NUR ---
SUMMARY PT AWAKE IN BED WATCHING TV, PT HAS BEEN PLEASANTLY CONFUSED WITH GARBLED SPEECH T/O THE DAY, OCC SAYS YES OR NO APPROPRIATELY, OCC FOLLOWS COMMANDS, PT WORKED WITH PT/OT TODAY, ABD BINDER REMAINS IN PLACE, RESTRAINTS HAVE REMAINED OFF, VSS, NO ACUTE CHANGES, WILL CONT TO MONITOR
--- NOTE | 2019-10-05 19:17 | NUR ---
Pt assessment: Pt is watching TV. He is watching consistently, appears to be keeping his attention. He is out of restraints at this time. He is not pulling on lines at this time.
[2019-10-06 05:08] LABS: Anion Gap 7 mmol/L (6-16); Blood Urea Nitrogen 16 mg/dL (8-24); Bun/Creatinine Ratio 25.2 (12.0-20.0); CO2, Blood 27 mmol/L (21-32); Calcium, Blood 8.4 mg/dL (8.5-10.1); Chloride, Blood 106 mmol/L (98-108); Creatinine, Blood 0.64 mg/dL (0.60-1.20); Glomerular Filtration Rate >60 (60-); Glucose, Blood 98 mg/dL (70-99); Magnesium, Blood 1.9 mg/dL (1.6-2.4); Potassium, Blood 3.4 mmol/L (3.5-5.5); Sodium, Blood 140 mmol/L (136-145)
--- NOTE | 2019-10-06 05:48 | NUR ---
SHIFT SUMMARY PT IS A 58 Y/O MALE, ADMITTED FOR SEPSIS AND CURRENTLY WITH AN ANOXIC BRAIN INJURY R/T A PREVIOUS CODE. HE IS A&O X SELF ONLY, WITH GARBLED AND DIFFICULT TO UNDERSTAND SPEECH. PT IS CAPABLE OF ANSWERING YES/NO QUESTIONS, AND CAN FOLLOW SIMPLE COMMANDS. HE IS INCONTINENT AND TURN Q2H. PT DENIED ANY COMPLAINTS OF PAIN OR DISCOMFORT. NO S/S OF NAUSEA OR SOB. VITAL SIGNS STABLE. PT RECEIVED BOLUS TUBE FEEDINGS THROUGH HIS PEG TUBE Q4H. NO OTHER ACUTE CHANGES IN PT CONDITION NOTED. WILL CONTINUE TO MONITOR AND TREAT PER EMAR UNTIL HAND OFF TO DAY SHIFT RN.
--- NOTE | 2019-10-06 18:03 | NUR ---
SUMMARY PT AWAKE IN BED WATCHING TV AND VISITING WITH A FRIEND, EMMANUEL, PT HAS WORKED WITH THERAPY TODAY, WAS ABLE TO STAND SEVERAL TIMES, PT HAS BEEN TOLERATING HIS TUBE FEEDS WITH SMALL AMOUNTS OF RESIDUAL, PT REMAINS OUT OF RESTRAINTS, ABD BINDER IN PLACE TO PROTECT G-TUBE, PT WITH GARBLED SPEECH MOST OF THE TIME, PT DOES FOLLOW SOME COMMANDS AND ANSWERS SOME QUESTIONS APPROPRIATELY, VSS, NO ACUTE CHANGES, WILL CONT TO MONITOR
--- NOTE | 2019-10-06 20:00 | NUR ---
BEGINNING SHIFT SUMMARY ASSUMED CARE OF PT AT 1900. PT LYING IN BED WATCHING TV; PT CAN STATE ONE WORD SENTENCES, AND FOLLOW COMMANDS. HEART SOUNDS REGULAR, LUNG SOUNDS CLEAR. PT WAS CHANGED WITH 3 PERSON MAX ASSIT. PT HAS A RASH ALONG HIS WHOLE BACK, OINTMENT APPLIED. BOWEL TONES HYPERACTIVE, PT HAS INDEGESTION, ABDOMEN SLIGHTLY DESTENDED, ABDOMINAL BINDER INPLACE TO PROTECT THE PEG TUBE, SITE FREE OF REDNESS WITH MINIMAL DISCHARGE, DENIES PAIN. CALL LIGHT IN REACH, BED IN LOWEST POSITION, BED ALARM ON, WILL CONTINUE TO MONITOR.
--- NOTE | 2019-10-07 05:16 | NUR ---
END SHIFT SUMMARY NO ACUTE CHANGES NOTED THROUGHOUT THE NIGHT. PT IS LYING IN BED WATCHING TV. PT IS HAVING VERY LOOSE STOOLS, WILL PASS ONTO SHIFT TO HOLD STOOL SOFTENERS. PT CHANGED AND REPOSITIONED. CALL LIGHT IN REACH, BED IN LOWEST POSTION, BED ALARM ON, WILL CONTINUE TO MONITOR UNTIL DAYSHIFT NURSE ARRIVES.
--- NOTE | 2019-10-07 19:05 | NUR ---
SHIFT SUMMARY: NO ACUTE CHANGES TO REPORT THIS SHIFT. PT ALERT; HX ANOXIC BRAIN INJURY; CONFUSED; SPEECH GARBLED. PEG TUBE BOLUS FEEDING 4X DAYS; 360ML PER FEEDING; PT TOLERATING WELL. VERY MOIST SKIN; NYSTATIN TO RITU AREA & ABDOMINAL FOLDS. PT HOMELESS; AWAITING PLACEMENT. REPORT GIVEN TO ONCOMING RN.
--- NOTE | 2019-10-07 20:05 | NUR ---
PATIENT RESTING IN BED, OPENS EYES TO NAME BUT IS NON-VERBAL. DOES NOT RESPOND TO QUESTIONS, JUST STARES OUT INTO SPACE. OCCATIONALLY WILL LOOK AT YOU. BED WAS WET. SIGNAL OPERATOR LINGUIST AND I CHANGED LINEN AND ATTENDS. HE URINATES WELL, EVEN WHEN YOU GO TO ROLL HIM, HAVE TO BLOCK TO PREVENT FROM GETTING WET. GROIN WITH REDNESS AND SKIN TEARS FROM THE ATTENDS BEING TO TIGHT. CLEANSED WELL AND APPLIED NYSTATIN POWDER, PUT LARGER ATTENDS ON WITH EXTRA PAD. POSITIONED UP IN BED. CALL LIGHT BY HEAD BUT DOES NOT KNOW HOW TO USE IT. BED ALARM IS ON.
--- NOTE | 2019-10-08 00:22 | NUR ---
CHECKED PATIENT, INNER LINER PERIPAD SATURATED, CHANGED PAD ATTENDS WAS DRY. REPOSITIONED TO LAYING DOWN AFTER BEING UP POST TUBE FEED. COVERED UP. PATIENT COMFORTABLE WITH NO SIGNS OF DISTRESS.
--- NOTE | 2019-10-08 02:00 | NUR ---
PATIENT SLEEPING, ABLE TO WIGGLE AROUND HE PULLS HIS LEGS UP AND SCOOTS DOWN IN BED. REPOSITIONED HIM, CHECKED ATTENDS, WHEN TELLING HIM WHAT YOU ARE DOING HE DOES NOT COMPERHEND IT. INSTRUCTED TO SPREAD HIS LEGS SO I CAN CHANGE OUT HIS PERIPAD AGAIN, AND HE KEEPS HIS LEGS CLOSED. HAD TO SPREAD HIS LEGS TO REMOVE THE LINER SINCE IT WAS SOAKED AGAIN, NEW LINER PLACED. ATTENDS DRY.
--- NOTE | 2019-10-08 04:00 | NUR ---
PATIENT RESTING COMFORTABLY, NO SIGNS OF DISTRESS, ATTENDS DRY. CALL LIGHT IN REACH, BED IN LOW POSITION, BED ALARM ON.
--- NOTE | 2019-10-08 06:46 | NUR ---
SHIFT SUMMARY: 58 Y/O MALE ADMITTED FOR SEPSIS THAT RESULTED IN ANOXIC BRAIN INJURY. VS REMAINED STABLE. HE WAS NON-VERBAL ALL NIGHT, NOT REALLY RESPONSIVE TO INTERVENTIONS, JUST WOULD STARE AT YOU. ATTENDS REMAINED DRY WITH FREQUENT CHANGES. PEG TUBE RESIDUAL REMAINED 0. FLUSHED PRIOR TO MEDS AND TUBE FEEDING. AND FLUSHED AFTERWARDS. BOLUS FEED WENT WITH OUT PROBLEMS. NO ACUTE CHANGES OCCURRED THIS SHIFT. WILL REPORT TO DAY SHIFT.
--- NOTE | 2019-10-08 12:17 | NUR ---
UP IN W/C WITH OT. 2 PERSON ASSIST.
--- NOTE | 2019-10-08 19:04 | NUR ---
PT. BACK IN BED AT THIS TIME. PT. WAS UP IN WC. FROM AROUND 1100 TO 1600. WHEN IN CHAIR I ASKED IF HE WANTED TO GO BACK TO BED OR SIT IN WC. HE REPLIED WHEELCHAIR! PT. IS HAVING SEVEERAL LOOSE STOOLS , I ASSUME FROM THE TUBE FEEDING. MEPILEX PLACED AND CREAM AND NYSTATIN POWEDER PLACED. PT. MENTATION IS CLEARER THIS EVENING THAN THIS MORNING AND SAYING MORE WORDS.
--- NOTE | 2019-10-08 19:50 | NUR ---
PATIENT AWAKE, SMILING, AND EVEN STAYING A FEW WORDS. RESPONDS TO SIMPLE QUESTIONS, AND ABLE TO FOLLOW SOME DIRECTIONS. HE IS IN A GOOD MOOD AND WATCHING ALL THAT IS AROUND HIM. EVEN IS ABLE TO COMPERHEND SOME OF THE TASK WE ARE DOING WITH HIM LIKE ROLLING HIM TO CHANGE, HE WILL ROLL OVER WHEN HE ASK. THIS IS A HUGE IMPROVMENT FROM NIGHT PRIOR. CHANGED ATTENDS SINCE IT WAS WET AND SOME LINEN. REPOSITIONED HIM UP IN BED. NEW GOWN PLACED. WILL CONTINUE TO [facility].
--- NOTE | 2019-10-08 20:59 | NUR ---
ADMINISTERED BOLUS TUBE FEED OF 360ML, 30ML OF WATER PRIOR AND AFTER MEDICATION THEN TUBE FEED AND FLUSHED AGAIN WITH 30ML. HE TOLERATED WELL. HAD NO RESIDUAL PRIOR. PATIENT NOW SITTING UPRIGHT FOR HIS 30-45 MIN AFTERWARDS.
--- NOTE | 2019-10-09 00:15 | NUR ---
PATIENT JUST HAD A LARGE BOWEL MOVEMENT LOOSE. [employer] CONSOLE OPERATOR TRACK GOT HIM ALL CLEANED UP. HE WAS AWAKE APPEARED COMFORTABLE. DID NOT WANT THE LIGHT OFF AT THIS TIME. NO SIGNS OF DISTRESS NOTED. WILL CONTINUE TO MONITOR.
--- NOTE | 2019-10-09 02:01 | NUR ---
RAMONA IS RESTING OFF AND ON, AWAKENS OCCATIONALLY WITH A COUGH, NO PRODUCTION, THEN GOES RIGHT BACK TO SLEEP. WILL CONTINUE TO MONITOR
--- NOTE | 2019-10-09 04:16 | NUR ---
FRIEND OF RAMONA SHOWED UP. STATES HE WATCHES SEVERAL HOMELESS MEN ON THE STREET AND RAMONA WAS ONE OF THEM. STATES HE DOES NOT KNOW MUCH ABOUT HIS FAMILY, BRANT NEVER TALKED ABOUT THEM. STATES HE PUT INFORMATION OUT ON FACEBOOK TO SEE IF ANY FAMILY WILL CONTACT HIM. STATES HE THINKS HE IS A VET AND HAS BEEN [facility] [place]. WILL PASS THIS ONTO THE DAY SHIFT RN.
--- NOTE | 2019-10-09 05:25 | NUR ---
SHIFT SUMMARY: 58 Y/O MALE ADMITTED FOR SEPSIS AND ENDED UP WITH ANOXIC BRAIN INJURY. RAMONA HAS BEEN MORE INTERACTIVE, TALKING IN FEW WORDS TO STAFF, FOLLOWING DIRECTIONS TONIGHT. THIS IS A COMPLETE CHANGE FROM PREVIOUS NIGHT. HE WAS FULL OF SMILES AND GIGGLES. HE DID HAVE A LARGE LOOSE BM. TOLERATED HIS TUBE FEED WITH NO PROBLEMS, NO RESIDUAL. MEDS WERE GIVEN WITH NO ISSUES. ATTENDS CHANGED OFTEN TO KEEP DRY. NO ACUTE CHANGE WERE NOTED. WILL REPORT TO DAY SHIFT RN.
--- NOTE | 2019-10-09 17:51 | NUR ---
PT. IN BED AT THIS TIME, HAS BEEN UP IN WHEELCHAIR TWICE TODAY. PT. APPEARS TO HAVE DEVELOPED A PRODUCTIVE COUGH, HAVE INSTRUCTED HIM OF THE USE OF THE SUCTION INSTEAD OF SWALLOWING IT. PT. MORE VERBAL AT TIMES, SOMETIMES NONSENSICAL. TOLERATING 360 ML OF FEEDING QUID.
--- NOTE | 2019-10-10 06:02 | NUR ---
SHIFT SUMMARY NO ACUTE CHANGES TO REPORT OVERNIGHT. PT HAS BEEN PLESANT AND COOPERATIVE WITH CARE, HE ANSWERS SOME DIRECT QUESTIONS BUT MOST OF HIS SPEECH IS NONSENSICAL. PT TOLERATED TUBE FEEDS THIS SHIFT WITH MINIMAL RESIDUL. QUIETLY RESTS IN BED, AND DENIES PAIN. VITALS STABLE. BED IN LOWEST POSITION, CALL LIGHT WITHIN REACH. WILL CONTINUE TO MONITOR AND REPORT TO ONCOMING RN.
--- NOTE | 2019-10-10 06:36 | NUR ---
SKIN INTEEGRETY PT HAS REDDNESS AND SWELLING IN THE RITU AREA FROM THE BREIF RUBBING, CREAM APPLIED AND NURSE NOTIFIED
--- NOTE | 2019-10-10 16:32 | NUR ---
PT IS A/OX2, PLEASANTLY CONFUSED, THE PT APPEARS TO BE BREATHING EASILY ON RA, HAS AN OCCASIONAL WET COUGH, HEAD OF THE BED UP TO 45 DEGREES, IT APPEARED THAT THE PT WAS PULLING ON HIS PEG TUBE AT ONE TIME TODAY, THE PEG TUBE WAS CONCEALED WITH A DRESSING AND DRESSING WAS REAPPLIED, THE PT SO FAR HAS HAD LITTLE RESIDUAL AND HAS TOLERATED HIS TUBE FEEDING WELL, PT HAS BEEN REPOSITIONED T/O THE DAY, PT HAD SEVERAL HEAVY WET INCONTNENT EPISODES, AND 1 LOOSE STOOL SO FAR TODAY, CALL LIGHT IN REACH WILL CONTINUE TO MONITOR AND ASSESS FOR CHANGES
--- NOTE | 2019-10-11 05:44 | NUR ---
Shift Summary Patient slept well between cares. Assisted to reposition q2h. Barrier cream applied to areas of moisture-related excoriation.
--- NOTE | 2019-10-11 18:43 | NUR ---
PT IS A/OX2, PLEASANT AND COOPERATIVE, THE PT SPEECH IS GARBLED AND HARD TO UNDERSTAND, THE PT WAS UP THIS AN WITH THE PHYSCIAL THERAPIST TO THE WHEELCHAIR AND WAS UP THIS AFTERNOON INTO THE WHEELCHAIR, THE PT HAS BEEN TOLERATING THE TUBE FEEDING SO FAR, SOME RESIDUAL NOTICED > 100 WITH THE LAST FEEDING, THE PT IS HAVING LOOSE STOOL X2 TODAY, PEG TUBE REMAINS INTACT AT THIS TIME EVEN THOUGH THE PT HAS PULLED AT IT AT TIMES, PT APPEARS TO BE BREATHING EASILY ON RA, CALL LIGHT IN REACH
--- NOTE | 2019-10-12 18:43 | NUR ---
PATIENT IS ALERT. HE REPLIES WITH OE WORD ANSWERS MOST OF THE TIME. PT HAS A PEG TUBE. QID FEEDINGS AND WATER. PEDNESS ON HIS GROIN. HIS GROIN WAS NOTED TO BE VISIBLY PUFFY TODAY COMPARED TO YESTERDAY, DR. SUÁREZ NOTIFIED. Q2H TURNS, THE PATIENT IS ABLE TO MOVE AROUND IN BED. HE WORKED WITH PT TODAY AND GOT UP TO HIS WHEELCHAIR FOR ABOUT AN HOUR.
--- NOTE | 2019-10-12 20:40 | NUR ---
10/12/192024 RN CAME IN ROOM AND FOUND PEG TUBE LAYING ON BEDSIDE TABLE--INTACT. PEG SITE WITH SLIGHT BLEEDING. GAUZE DRESSING WITH FOAM TAPE APPLIED BUT PT IMMEDIATELY PULLED IT OFF. REAPPLIED DRESSING AND ABDOMINAL BINDER APPLIED. NOTIFIED MAGNET PLACER,ALBERT CAO. ALBERT PAGED DR FERNANDES AND WILL SEE IF ANOTHER MD CAN INSERT NEW ONE.
--- NOTE | 2019-10-13 01:20 | NUR ---
10/12/192119 DR PALOMINO AND DR FERNANDES INSERTED NEW #20 PEG TUBE INTO PREVIOUS PEG SITE IN ABDOMEN. SECURED AND DRESSED WITH GAUZE BY DOCTORS. ABDOMINAL BINDER RE-APPLIED. BILATERAL WRISTS RESTRAINTS ORDERED AND APPLIED. FEEDINGS AND MEDS TO RESUME IN COUPLE OF HOURS PER DR FERNANDES.
--- NOTE | 2019-10-13 03:25 | NUR ---
10/13/19 0250 PT FOUND PULLING UP GOWN AND ATTEMPTING TO REMOVE ABD. BINDER EVEN WITH LUCRETIA. WRIST RESTRAINTS ON. MOVES HIS BODY CLOSE TO HANDS. MEDICATED WITH ATIVAN 2 MG IM TO LEFT THIGH. RE-ORIENTED AND REMINDED NOT TO TAKE OFF LINENS. "OKAY," HE STATED. REPOSITIONED IN BED TO RT SIDE WITH PILLOWS. ORAL CARE GIVEN WITH SWABS/LIP OINTMENT.
--- NOTE | 2019-10-13 05:29 | NUR ---
10/13/19 0515 PT SLEEPING WELL NOW AFTER ATIVAN GIVEN. PEG TUBE INTAKE WITH FEEDINGS ORDERED. RESIDUAL < 10 ML. VITALS STABLE THIS AM. PT REMAINS CONFUSED THIS SHIFT AND NON-DIRECTABLE. HE STATES "OKAY" WHEN GIVEN INSTRUCTIONS BUT STARTS PULLING AT LINENS, BINDER, ETC. NURSE WALKS OUT ROOM. RESTRAINTS STILL NEEDED TO PREVENT HIM PULLING OUT TUBES.
--- NOTE | 2019-10-14 07:32 | NUR ---
10/14/19 0630 PT SLEEPING ON AND OFF. WHEN RESTRAINTS RELEASED FOR TRUNING HE IMMEDICATELY PUTS HANDS ON ABD. AND BINDER. REPOSITIONED Q 2 HOURS WITH ORAL AND RITU-CARE GIVEN. PT HAD 2 "FRIENDS" VISIT LAST NIGHT WITH A DOG. BOTH MEN HAD BAD BODY ODOR. THEY VISITED FOR ABOUT ONE HOUR BUT PT WAS SLEEPING DURING VISIT. RN HAD THEM LEAVE AT 2200.
--- NOTE | 2019-10-14 15:20 | NUR ---
Spoke with Supervisor [employer] Jesus and discussed case. Jesus expresses concerns regarding Pt's quality of life requiring restaints in order for Pt to not pull his peg tube out again. Pt is working with OT at the time of this RN's visit. Pt is mobile in wheelchair using his feet and hand to propel wheel chair. After therapy finished working with Pt engaged in discussion with Kim. Kim reports Pt has shown improvement and can follow approximately 75% of simple commands or directions. Kim reports Pt has rehabilitation potential. Pt appears comfortable with no S/S of distress at this time. Spoke with Radha from PT and discussed case. Radha reports Pt has shown improvement and has rehab potential. Spoke with bedside RN and discussed case. Shellie reports Pt is able to manipulate ABD binder and pull peg tube out. Spoke with Dr Shaffer discussed case and requested for ST to re-evaluate swallow. Placed order for ST to evaluate. Spoke with Krishan Kee and discussed case. Palliative Care will remain available.
--- NOTE | 2019-10-14 16:17 | NUR ---
Spiritual Care visit: When I entered room, Mr. Muse was out of one wrist restraint and working on freeing the other are. Immediatedly informed RN and this was addressed. Mr. Muse did not appear bothered to be restrained again. He smiles easily and tried to speak to me, but speech is garbled. He denied pain or worry. He allowed me to pray for him at bedside. I will remain available.
--- NOTE | 2019-10-14 16:35 | NUR ---
DR LEONG NOTIFIED OF BP 87/67 AND PULSE OF 112. NEW ORDERS INITIATED
--- NOTE | 2019-10-14 18:48 | NUR ---
SHIFT SUMMARY PT AXO TO NONE THOUGH PLEASANT AND COOPERATIVE WITH CARE. PT UP TO WHEELCHAIR WITH OT, WHEELING HIMSELF. PT WAS ABLE TO STAND AT SIDE OF BED WELL. SEE NOTE ABOUT LOW BP. 125/84 AT THIS TIME AFTER 500ML BOLUS. FEEDINGS AND FLUSHED PER ORDER THIS SHIFT. PT TOLERATED WELL WITH LITTLE TO NO RESIDUAL. PT CONTINES TO BE IN RESTRAINTS TO PROTECT PEG TUBE AND IV. BED IN LOW POSITION, CALL LIGHT WITHIN REACH, BED ALARM ON.
[2019-10-15 04:51] LABS: BASOPHILS ABSOLUTE AUTO 0.06 K/mm3 (0.00-0.23); BASOPHILS PERCENT AUTO 1 % (0-2); EOSINOPHILS ABSOLUTE AUTO 0.26 K/mm3 (0.00-0.68); EOSINOPHILS PERCENT AUTO 2 % (0-6); Hematocrit 38.8 % (37.0-53.0); Hemoglobin 12.1 g/dL (13.5-17.5); IMMATURE GRAN ABSOLUTE AUTO 0.23 K/mm3 (0.00-0.10); IMMATURE GRAN PERCENT AUTO 2 % (0-1); LYMPHOCYTES ABSOLUTE AUTO 3.31 K/mm3 (0.84-5.20); LYMPHOCYTES PERCENT AUTO 27 % (21-46); MONOCYTES ABSOLUTE AUTO 0.99 K/mm3 (0.16-1.47); MONOCYTES PERCENT AUTO 8 % (4-13); Mean Corpuscular HGB 28.9 pg (26.0-34.0); Mean Corpuscular HGB Conc 31.2 g/dL (31.5-36.5); Mean Corpuscular Volume 93 fL (80-100); Mean Platelet Volume 9.3 fL (9.1-12.4); NEUTROPHILS ABSOLUTE AUTO 7.48 K/mm3 (1.96-9.15); NEUTROPHILS PERCENT AUTO 61 % (41-73); Platelet Count 384 K/mm3 (150-400); RDW Coefficient Variation 14.7 % (11.7-14.2); RDW Standard Deviation 49.5 fL (35.1-46.3); Red Blood Cell Count 4.19 M/mm3 (4.30-5.90); White Blood Cell Count 12.33 K/mm3 (4.00-11.30)
[2019-10-15 05:11] LABS: Anion Gap 7 mmol/L (6-16); Blood Urea Nitrogen 21 mg/dL (8-24); Bun/Creatinine Ratio 35.1 (12.0-20.0); CO2, Blood 27 mmol/L (21-32); Calcium, Blood 8.8 mg/dL (8.5-10.1); Chloride, Blood 105 mmol/L (98-108); Glomerular Filtration Rate >60 (60-); Glucose, Blood 80 mg/dL (70-99); Potassium, Blood 4.6 mmol/L (3.5-5.5); Sodium, Blood 139 mmol/L (136-145)
--- NOTE | 2019-10-15 07:11 | NUR ---
10/15/19 0600 THIS HAS BEEN THE MOST ALERT AND INTERACTIVE THIS PT HAS BEEN IN THREE NIGHTS. RESTRAINTS STILL NEEDED HE CONTINUES TP PULL AT LINENS, GOWN, BINDER AND TUBES. TOLERATING PEG TUBE FEEDINGS WEEL WITH > 12 ML OF RESIDUAL. ORAL AND RITU-CARE GIVEN WITH EACH REPOSITIONING. VOIDING QS. VITALS STABLE.
--- NOTE | 2019-10-15 19:16 | NUR ---
NO ACUTE CHANGES NOTED. NO CURRENT COMPLAINTS OF PAIN OR DISCOMFORT NOTED. PATIENT IS VERY ALERT THIS SHIFT TALKING WITH STAFF. BELLY BINDER IS IN PLACE. NO OTHER ISSUES AT THIS TIME. WILL CONTINUE TO MONITOR FOR CHANGES.
--- NOTE | 2019-10-16 05:40 | NUR ---
Slept well. very minimal complaints of discomfort which were resolved by repositioning. tolerating tube feeds without residuals. g tube site is intact. Abd binder in place, and patient has been leaving g tube alone. very pleasant.
--- NOTE | 2019-10-16 16:57 | NUR ---
PT UP IN W/C IN HALLWAY CALM AND APPEARS IN NO ACUTE DISTRESS; SMILES FREQUENTLY. MAKE SOUNDS AND SHORT MUMBLED SENTENCES.
--- NOTE | 2019-10-16 19:22 | NUR ---
SHIFT SUMMARY PLEASANT AND SMILING THROUGHOUT DAY. BOLUS TUBE FEEDINGS TOLERATED WELL. ABLE TO FOLLOW SIMPLE COMMANDS. UP IN W/C AND WORKED WITH PT/OT. APPEARS IN NO ACUTE DISTRESS; INCONTINENT.
--- NOTE | 2019-10-17 13:17 | NUR ---
Clinical Visit: Reviewed with nursing and physical therapy. Radha, PT, reports that pt has made significant improvements in fuction. He has walked a good distance and is interacting with appropriate responses to questions. She reports that he is very child-like, but smiling and happy. Symptoms seem to be managed. Following directions if presented in small amounts. Reviewed with palliative nurse, Mariluz. Destiny, critical care registered nurse, has been in contact with the pt's son. She reports that he may be an appropriate choice for being a decision maker. May need to follow up with him for a code status conversation. Pt would be appropriate to make DNR status. He may not do well after suffering another event. Will follow up as needed for this case and will follow along during the pt's hospital stay.
--- NOTE | 2019-10-17 17:22 | NUR ---
SHIFT SUMMARY NO CHANGES IN ASSESSMENT AT THIS TIME. PT TOLERATING 1.5 CANS ON JEVITY. INTERMITTEN FLUSHES DECREASED SLIGHTLY DUE TO LARGER RESIDUAL AMOUNTS. SEE FLUSH VOLUMES CHARTED. PT UP IN CHAIR TWICE THIS SHIFT. PT VERY COOPERATIVE & PLEASANT THIS SHIFT. PT LEFT IV & PEG TUBE ALONE. VSS. WILL CONTINUE TO MONITOR UNTIL TURNOVER IS COMPLETE.
--- NOTE | 2019-10-18 00:14 | NUR ---
AROUND 185, CAMERA MONITORS ATTEPTED TO REACH STAFF. HOWEVER, CALLS WERE NOT RECIVED ON VOCERA. UNIT SECURITARY, NATALY, NOTIFIED BY CAMERA MONITORS. NATALY NOTIFIED PROCEDURE NURSE AMY WHO THEN CAME TO ASSIST AND ASSESS PT. AMY REPORTED NO INJURY AND PT WAS PLEASANT AND DENIED BEING HURT. PT THEN ASSISTED BACK TO BED. VITALS TAKEN AND STABLE. OTHER STAFF ASSISTING OTHER PT IN RM 346 AT THE SAME TIME WITH FALL.
--- NOTE | 2019-10-18 05:10 | NUR ---
COSMETOLOGIST SUMMARY PT WAS COOPERATIVE AND PLEASANT. PT MUMBLES INCOMPREHENSIBLY AND WOULD SMILE AT STAFF. A/O X1 TO SELF. SLEPT THROUGHOUT THE NIGHT AND DID NOT TRY TO GET OUT OF BED. PEG TUBE AND ABD BINDER IN PLACE. PEG TUBE FLUSHED, MEDICATION AND NUTRITION WAS GIVEN THROUGH PEG TUBE PER DR ORDERS. THERE WERE NO COMPLICATIONS. VSS, WILL CONTINUE TO MONITOR.
--- NOTE | 2019-10-18 19:13 | NUR ---
SHIFT SUMMARY PEG TUBE WITH BOLUS FEEDINGS. 2 PERSON ASSIST. AMBULATED IN HALLWAY WITH PT TODAY. INCONTINENT. DECREASED MENTATION. NO IV. NO PAIN CONCERNS. SKIN INTACT WITH REDDENED AREAS IMPROVING. PULLS AT PEG TUBE ABDOMINAL BINDER IN PLACE. AWAITING PLACEMENT.
[2019-10-19 05:03] LABS: BASOPHILS ABSOLUTE AUTO 0.06 K/mm3 (0.00-0.23); BASOPHILS PERCENT AUTO 0 % (0-2); EOSINOPHILS ABSOLUTE AUTO 0.17 K/mm3 (0.00-0.68); EOSINOPHILS PERCENT AUTO 1 % (0-6); Hematocrit 36.2 % (37.0-53.0); Hemoglobin 11.5 g/dL (13.5-17.5); IMMATURE GRAN PERCENT AUTO 2 % (0-1); LYMPHOCYTES ABSOLUTE AUTO 3.16 K/mm3 (0.84-5.20); LYMPHOCYTES PERCENT AUTO 24 % (21-46); MONOCYTES ABSOLUTE AUTO 0.87 K/mm3 (0.16-1.47); MONOCYTES PERCENT AUTO 7 % (4-13); Mean Corpuscular HGB 29.1 pg (26.0-34.0); Mean Corpuscular HGB Conc 31.8 g/dL (31.5-36.5); Mean Corpuscular Volume 92 fL (80-100); Mean Platelet Volume 9.4 fL (9.1-12.4); NEUTROPHILS ABSOLUTE AUTO 8.88 K/mm3 (1.96-9.15); NEUTROPHILS PERCENT AUTO 67 % (41-73); Platelet Count 406 K/mm3 (150-400); RDW Coefficient Variation 14.6 % (11.7-14.2); RDW Standard Deviation 48.6 fL (35.1-46.3); Red Blood Cell Count 3.95 M/mm3 (4.30-5.90); White Blood Cell Count 13.34 K/mm3 (4.00-11.30)
--- NOTE | 2019-10-19 05:38 | NUR ---
SHIFT SUMMARY ALERT AND ORIENTED, CAN ANSWER Y/N QUESTIONS. LS CLEAR, DENIES SOB. NO C/O NAUSEA OR PAIN. PEG TUBE WITH BOLUS FEEDINGS. ABDOMINAL BINDER TO PROTECT PEG. PEG FLUSHES WELL. BUTT, THIGH, AND GROIN AREA IS RED, NO OPEN AREAS. NYSTATIN POWDER APPLIED. VSS ON RA. NO IV ACCESS. PT FELL LAST NIGHT, NO INJURIES OTHER THAN ABRASION AND REDNESS TO KNEES, PT STATED NO PAIN AND THAT HE DID NOT HIT HIS HEAD ONLY HIS KNEES. PT WAS FOUND BY OPERATOR HELPER. PROVIDER JONATHAN NOTIFIED. PT ALSO HAS SCRATCH ON FOREHEAD, UNSURE OF ORIGIN. WILL CONTINUE TO MONITOR. BED ALARM WAS ON AND PT WAS ON CAMERA AND BOTH OF THOSE REMAIN IN PLACE.
[2019-10-19 05:49] LABS: Alanine Aminotransfer (ALT/SGP 41 U/L (12-78); Albumin, Blood 2.6 g/dL (3.4-5.0); Albumin/Globulin Ratio 0.7 (0.8-1.8); Alk Phos 89 U/L (50-136); Anion Gap 7 mmol/L (6-16); Aspartate Aminotrans (AST/SGOT 25 U/L (12-37); Bilirubin, Total 0.5 mg/dL (0.1-1.0); Blood Urea Nitrogen 26 mg/dL (8-24); Bun/Creatinine Ratio 38.4 (12.0-20.0); CO2, Blood 26 mmol/L (21-32); Calcium, Blood 8.9 mg/dL (8.5-10.1); Chloride, Blood 104 mmol/L (98-108); Creatinine, Blood 0.68 mg/dL (0.60-1.20); Globulin, Blood 3.5 g/dL (2.2-4.0); Glomerular Filtration Rate >60 (60-); Glucose, Blood 88 mg/dL (70-99); Potassium, Blood 4.1 mmol/L (3.5-5.5); Sodium, Blood 137 mmol/L (136-145); Total Protein, Blood 6.1 g/dL (6.4-8.2)
--- NOTE | 2019-10-19 15:34 | NUR ---
SHIFT SUMMARY: PT HAS BEEN ALERT AND ORIENTED TO HIMSELF AND SITUATION AND IS ABLE TO ANSWER "YES" AND "NO" APPROPRIATELY TO QUESTIONS. HE IS PLEASANT AND COOPERATIVE WITH CARE. PEG TUBE FEEDINGS AND FLUSHES ARE TOLERATED WELL WITH NO RESIDUAL AND HOB ELEVATED. PT REMAINS INC OF B/B AND REQUIRES X 2 ASSIST FOR TURNING AND RE-POSITIONING AND TOILETING. PT IS ABLE TO MAKE HIS NEDS KNOWN IS ASKED IN A "YES" OR "NO" FORMAT BUT REQUIRES FREQUENT NURSE RROUNDING AND REPOSITIONING.
--- NOTE | 2019-10-19 15:44 | NUR ---
SHIFT SUMMARY: PT IS ALERT BUT DOES NOT RESPOND TO QUESTIONS TO ESTABLISH A BASELINE FOR ORIENTATION. PT REFUSED ALL MEDS AND TX WELL VITALS AND MEALS WITH THE EXCEPTION OF THIS AFTERNOON WHILE THE WAS AT THE BEDSIDE HE ALLOWED THE CABIN AGENT TO TAKE HIS VS. THE SON HAS BEEN IN THE ROOM SINCE THE START OF THE SHIFT BUT HAS NOT BEEN ACTIVE IN THE PT'S CARE OR ENGAGED WITH THE STAFF. PT REFUSED HIS SHIFT ASSESSMENT BUT FROM WHAT IS OBSERVED FROM THE BEDSIDE HE IS IN NO ACUTE DISTRESS. RESP ARE EVEN AND UNLABORED. WHEN THE ARRIVED THIS AFTERNOON SHE INFORMED THIS NURSE THAT SHE WOULD NOT BE ABLE TO TAKE HER HOME AND THE DOCTOR WAS MADE AWARE OF THIS AND STATED THAT CASE MANAGEMENT WOULD WORK ON PLACEMENT. PALLIATIVE CARE RN MET WITH THE PATIENT AND THE FAMILY AND STATED THAT THEY WOULD LIKE TO MOVE TOWARD COMFORT CARE, OF NOW NO NEW ORDERS HAVE BEEN ENETERED. PT REMAINS INC AND DOES NOT MAKE HIS NEEDS KNOWN ALTHOUGH IT IS UNSURE IF HE IS ABLE TO. HE REQUIRES FREQUENT NURSE ROUNDING AND RE-POSITIONING.
--- NOTE | 2019-10-20 02:44 | NUR ---
TUBE FEEDINGS 238 PLUS 30 CC H2O, WHEN ATTEMPTING TO GIVE MORE, SEEMED TO ACT IF HE WAS COUGHING AND SWALLOWING RAPIDLY. HOB ELEVATED 45 DEGREES.
--- NOTE | 2019-10-20 03:00 | NUR ---
aWAKE AT INTERVALS, A FEW ATTEMPTS TO GET OUT OF BED, WHICH WERE PREVENTED. BED ALARM AND VIDEO OBS CONTINUE. HOB ELEVATED 45 DEGREES FOR TUBE FEEDING SAFETY - PREVENT ASPIRATION. TUBE FEEDING CONTINUES EVERY 4 HRS. TOLERATING ONLY ABOUT 300 CC PER FEEDING - INCLUDING H20. CALL LIGHT IN REACH. OBSERVATION CONTINUES.
[2019-10-20 05:17] LABS: Alanine Aminotransfer (ALT/SGP 42 U/L (12-78); Albumin, Blood 2.7 g/dL (3.4-5.0); Albumin/Globulin Ratio 0.7 (0.8-1.8); Alk Phos 90 U/L (50-136); Anion Gap 7 mmol/L (6-16); Aspartate Aminotrans (AST/SGOT 24 U/L (12-37); Bilirubin, Total 0.6 mg/dL (0.1-1.0); Blood Urea Nitrogen 22 mg/dL (8-24); Bun/Creatinine Ratio 36.9 (12.0-20.0); CO2, Blood 27 mmol/L (21-32); Chloride, Blood 106 mmol/L (98-108); Globulin, Blood 3.7 g/dL (2.2-4.0); Glomerular Filtration Rate >60 (60-); Glucose, Blood 90 mg/dL (70-99); Potassium, Blood 4.3 mmol/L (3.5-5.5); Sodium, Blood 140 mmol/L (136-145); Total Protein, Blood 6.4 g/dL (6.4-8.2)
--- NOTE | 2019-10-20 15:59 | NUR ---
SHIFT SUMMARY: PT HAS BEEN ALERT AND ORIENTED TO SELF AND ANSWERS "YES" OR "NO" APPROPRIATELY TO ALL QUESTIONS ASKED. HE IS PLEASANT AND COOPERATIVE WITH HIS CARE. PT REMAINS INC OF BOWEL AND BLADDER AND IS X 2 ASSIST FOR TURNING AND RE-POSITIONING. PT IS TOLERATING HIS TUBE FEEDINGS WELL WITH NO RESIDUAL. ABDOMINAL BINDER IS IN PLACE. BED ALARM REMAINS ON FOR PT SAFETY AND PT HAS BEEN MORE RESTLESS TODAY ATTEMPTING TO GET UP OUT OF BED MULTIPLE TIMES. PT CAN USE HIS CALL LIGHT BUT TYPICALLY DOESNT AND REQUIRES FREQUENT NURSE ROUNDING AND RE-POSITIONING.
--- NOTE | 2019-10-21 04:29 | NUR ---
SHIFT SUMMARY PT HAD UNEVENTFUL NIGHT. SLEPT OFF AND ON. FRIEND "EMMANUEL" IN THIS EVENING. REMAINS AT BEDSIDE AT THIS TIME. PT'S MENTATION APPEARS IMPROVED FROM PREVIOUS TIMES TAKING CARE OF HIM. PT ABLE TO ANSWER SIMPLE YES OR NO QUESTIONS AND APPEARS APPROPRIATE WITH HIS RESPONSES. PT EVEN USES SIMPLE SHORT SENTENCES SEVERAL TIMES THROUGHOUT THE NIGHT. PT PLEASANT, SMILES WITH EACH INTERACTION. DID NOT MESS WITH PEG TUBE THIS EVENING, HOWEVER ABD BINDER REMAINED IN PLACE WHEN GI TUBE NOT BEING USED. 2000 BOLUS FEED OF 1 1/2 CANS GIVEN AND PT TOLERATED WELL. DENIED ANY ABD DISCOMFORT OR NAUSEA. PT INCONTINENT. ATTENDS IN PLACE. RITU AREA SLIGHTLY RED, NYSTATIN POWDER APPLIED. VITAL SIGNS STABLE. NO ACUTE CHANGES THIS SHIFT. WILL CONTINUE TO MONITOR.
[2019-10-21 06:24] LABS: Anion Gap 8 mmol/L (6-16); Blood Urea Nitrogen 20 mg/dL (8-24); Bun/Creatinine Ratio 34.8 (12.0-20.0); CO2, Blood 25 mmol/L (21-32); Calcium, Blood 9.2 mg/dL (8.5-10.1); Chloride, Blood 106 mmol/L (98-108); Creatinine, Blood 0.58 mg/dL (0.60-1.20); Glomerular Filtration Rate >60 (60-); Glucose, Blood 88 mg/dL (70-99); Magnesium, Blood 2.1 mg/dL (1.6-2.4); Phosphorus, Blood 5.1 mg/dL (2.5-4.9); Potassium, Blood 4.2 mmol/L (3.5-5.5); Sodium, Blood 139 mmol/L (136-145)
[2019-10-21] MEDS ORDERED: MAPAP325 MG/10. PT (10:33)
[2019-10-21] MEDS ORDERED: ALBU2.5V5 INH (10:34)
[2019-10-21] MEDS ORDERED: ZESTRIL40 MG PT (10:35)
[2019-10-21] MEDS ORDERED: Milk Of Ma400 MG/5 M PT (10:37)
[2019-10-21] MEDS ORDERED: MAGOX 400400 MG PT (10:37)
[2019-10-21] MEDS ORDERED: METO25 PT (10:38)
[2019-10-21] MEDS ORDERED: Pedi-Dri 100,0060 GM TOP (10:39)
[2019-10-21] MEDS ORDERED: OMEPRAZOLE20 MG PT (10:40)
[2019-10-21] MEDS ORDERED: MIRALAX17 GM PT (10:41)
[2019-10-21] MEDS ORDERED: Prednisone10 MG PT (10:41)
[2019-10-21] MEDS ORDERED: SENN187 PT (10:42)
[2019-10-21] MEDS ORDERED: LORA1 PT (10:43)
[2019-10-21 11:44] LABS: Performing Lab PROMETHEUS; Test Name 3320
--- NOTE | 2019-10-21 11:54 | NUR ---
PT WAS DCD TO . REPORT WAS CALLED TO AP GARCIA. MED REC COMPLETED PER DR LEONG. [facility] TRANSPORTED VIA [facility] ALL PERSONAL BELONGINGS SENT WITH PT. PT IS STABLE UPON DC AND VERY HAPPY TO BE LEAVING THE HOSPITAL. PACKET SENT WITH COMPENSATION PROGRAMS MANAGER.
[2019-10-25 08:13] LABS: Result SEE LABOUT RESULTS
== END 2019-10-21 11:53 | DRG 870 ==
LOC: ER 09:44 → MEDS 14:07 → ICUW 14:07 → PCU 14:07 → ICUW 14:50 → MEDS 08-30 17:15 → PCU 09-03 16:25 → MEDS 09-08 10:33 → PCU 09-08 20:08 → ICUW 09-09 14:58 → PCU 09-23 11:49 → MEDS 09-24 23:20 → ENPENDDIS 10-21 09:56 → MEDS 10-21 11:53
PROVIDERS: Emergency Medicine; Family Medicine; Internal Medicine; Internal Medicine Critical Care Medicine; Internal Medicine Gastroenterology; Internal Medicine Pulmonary Disease; Nurse Practitioner Acute Care; ADMIT Internal Medicine
PROC: 0BH17EZ Insertion of Endotracheal Airway into Trachea, Via Natural or Artificial Opening (ICD-10-PCS; principal; 2019-09-09)
PROC: 5A1955Z Respiratory Ventilation, Greater than 96 Consecutive Hours (ICD-10-PCS; 2019-09-09)
PROC: 02HV33Z Insertion of Infusion Device into Superior Vena Cava, Percutaneous Approach (ICD-10-PCS; 2019-09-09)
PROC: 0DBK8ZX Excision of Ascending Colon, Via Natural or Artificial Opening Endoscopic, Diagnostic (ICD-10-PCS; 2019-09-12)
PROC: 0DBL8ZX Excision of Transverse Colon, Via Natural or Artificial Opening Endoscopic, Diagnostic (ICD-10-PCS; 2019-09-12)
PROC: 30243N1 Transfusion of Nonautologous Red Blood Cells into Central Vein, Percutaneous Approach (ICD-10-PCS; 2019-09-12)
PROC: 0DBB8ZX Excision of Ileum, Via Natural or Artificial Opening Endoscopic, Diagnostic (ICD-10-PCS; 2019-09-12)
PROC: 0DH63UZ Insertion of Feeding Device into Stomach, Percutaneous Approach (ICD-10-PCS; 2019-10-02)
PROC: 3E0G76Z Introduction of Nutritional Substance into Upper GI, Via Natural or Artificial Opening (ICD-10-PCS; 2019-10-02)
DX: A40.0 Sepsis due to streptococcus, group A (principal); G93.41 Metabolic encephalopathy; K22.11 Ulcer of esophagus with bleeding; J15.6 Pneumonia due to other Gram-negative bacteria; I46.8 Cardiac arrest due to other underlying condition; J96.01 Acute respiratory failure with hypoxia; N17.0 Acute kidney failure with tubular necrosis; L03.311 Cellulitis of abdominal wall; F15.20 Other stimulant dependence, uncomplicated; M62.82 Rhabdomyolysis; D62 Acute posthemorrhagic anemia; F10.230 Alcohol dependence with withdrawal, uncomplicated; A04.4 Other intestinal Escherichia coli infections; K50.10 Crohn's disease of large intestine without complications; G93.1 Anoxic brain damage, not elsewhere classified; K62.6 Ulcer of anus and rectum; R65.20 Severe sepsis without septic shock; K72.90 Hepatic failure, unspecified without coma; E87.6 Hypokalemia; E83.42 Hypomagnesemia; Z59.0 Homelessness; K21.9 Gastro-esophageal reflux disease without esophagitis; I10 Essential (primary) hypertension; R53.81 Other malaise; N43.3 Hydrocele, unspecified; F42.4 Excoriation (skin-picking) disorder; F17.210 Nicotine dependence, cigarettes, uncomplicated; M10.9 Gout, unspecified; G62.9 Polyneuropathy, unspecified; K44.9 Diaphragmatic hernia without obstruction or gangrene
CPT/HCPCS: 0097U; 31500; 31720; 36415; 36430; 36600; 51702; 70450; 71045; 71046; 74174; 76705; 80047; 80048; 80053; 80069; 80076; 80202; 81001; 82140; 82272; 82330; 82550; 82553; 82800; 82803; 82947; 83605; 83690; 83735; 83880; 84100; 84132; 84145; 84484; 84550; 85014; 85018; 85025; 85027; 85610; 85730; 86850; 86900; 86901; 86923; 87040; 87070; 87075; 87077; 87081; 87147; 87186; 87205; 88305; 90686; 92523; 92526; 92610; 93005; 93010; 93306; 94002; 94003; 94640; 94760; 95819; 96365-59; 96366-59; 96367-59; 97110; 97112; 97116; 97163; 97164; 97166; 97168; 97530; 97535; 99285-25; A9270; A9270-GY; C1751; C1769; C9113; G0008; G0480; G0515; J0171; J0282; J0330; J0360; J0690; J0696; J0744; J1644; J1940; J2001; J2060; J2250; J2270; J2405; J2540; J2543; J2704; J2765; J2920; J2930; J3010; J3370; J3411; J3430; J3475; J3480; J7030; J7040; J7042; J7050; J7060; J7120; J7512; P9016; Q9967

== ENCOUNTER 2019-10-25 11:08 | Emergency (ER) | payer OTHER ==
[~2019-10-25] VITALS: Ht 172.7 cm; Wt 77.1 kg
[~2019-10-25 11:08] MED LIST changes: +ALBU2.5V5 INH; +LORA1 PT; +MAGOX 400400 MG PT; +MAPAP325 MG/10. PT; +METO25 PT; +MIRALAX17 GM PT; +Milk Of Ma400 MG/5 M PT; +OMEPRAZOLE20 MG PT; +Pedi-Dri 100,0060 GM TOP; +Prednisone10 MG PT; +SENN187 PT; +ZESTRIL40 MG PT
== END 2019-10-25 18:09 | disposition home or self-care (01) ==
LOC: ER 11:08
DX: Z43.1 Encounter for attention to gastrostomy (principal); F17.210 Nicotine dependence, cigarettes, uncomplicated; Z88.5 Allergy status to narcotic agent; Z91.013 Allergy to seafood; Z79.899 Other long term (current) drug therapy
CPT/HCPCS: 43762; 49465; 74018; 99283-25; Q9963

== ENCOUNTER 2019-10-27 18:25 | Emergency (ER) | payer OTHER ==
[~2019-10-27] VITALS: Ht 165.1 cm; Wt 70.8 kg
== END 2019-10-27 21:26 | disposition home or self-care (01) ==
LOC: ER 18:25
DX: K94.23 Gastrostomy malfunction (principal); M10.9 Gout, unspecified; G62.9 Polyneuropathy, unspecified; F17.210 Nicotine dependence, cigarettes, uncomplicated; Z88.5 Allergy status to narcotic agent; Z91.013 Allergy to seafood
CPT/HCPCS: 49465; 99283-25; Q9963

== ENCOUNTER 2019-10-31 22:25 | Emergency (ER) | payer OTHER ==
[~2019-10-31] VITALS: Ht 162.6 cm; Wt 104.3 kg
== END 2019-11-01 00:52 | disposition home or self-care (01) ==
LOC: ER 22:25
DX: K94.23 Gastrostomy malfunction (principal); F17.210 Nicotine dependence, cigarettes, uncomplicated
CPT/HCPCS: 43762; 49465; 99283-25; Q9963

== ENCOUNTER 2019-12-18 20:09 | Emergency (ER) | payer OTHER ==
[~2019-12-18] VITALS: Ht 162.6 cm; Wt 104.3 kg
[2019-12-18] MEDS ORDERED: LISI20 PO (20:26)
[2019-12-18] MEDS ORDERED: PRED20 PO (20:27)
[2019-12-18] MEDS ORDERED: OMEP20ER PO (20:27)
[2019-12-18] MEDS ORDERED: MAGOX 400400 M1 PO (20:28)
[2019-12-18] MEDS ORDERED: Ativan1 MG PO (20:28)
[2019-12-18] MEDS ORDERED: METO25 PO (20:37)
[2019-12-18] MEDS ORDERED: ALBU2.5V5 INH (20:37)
[2019-12-18] MEDS ORDERED: MIRALAX17 G1 PO (20:38)
[2019-12-18] MEDS ORDERED: MILK OF MA400 MG/5 M PO (20:38)
[2019-12-18] MEDS ORDERED: SENNA LAXATIVE8.6 MG PO (20:40)
[2019-12-18] MEDS ORDERED: ACET325 PO (20:41)
== END 2019-12-18 21:43 | disposition home or self-care (01) ==
LOC: ER 20:09
DX: R45.1 Restlessness and agitation (principal); M10.9 Gout, unspecified; G62.9 Polyneuropathy, unspecified; Z88.5 Allergy status to narcotic agent; Z91.013 Allergy to seafood; Z79.899 Other long term (current) drug therapy; Z79.52 Long term (current) use of systemic steroids; F17.210 Nicotine dependence, cigarettes, uncomplicated
CPT/HCPCS: 99285

== ENCOUNTER 2020-05-14 23:25 | Emergency (ER) | payer OTHER ==
[~2020-05-14] VITALS: Ht 165.1 cm; Wt 99.8 kg
[~2020-05-14 23:25] MED LIST changes: +Ativan1 MG PO; +MAGOX 400400 M1 PO; +METO25 PO; +MILK OF MA400 MG/5 M PO; +MIRALAX17 G1 PO; +OMEP20ER PO; +PRED20 PO; +SENNA LAXATIVE8.6 MG PO
[2020-05-15] MEDS ORDERED: CEFP200 PO (01:03)
== END 2020-05-15 01:08 | disposition home or self-care (01) ==
LOC: ER 23:25
DX: S81.812A Laceration without foreign body, left lower leg, initial encounter (principal); Z23 Encounter for immunization; Z88.5 Allergy status to narcotic agent; Z91.018 Allergy to other foods; Z79.899 Other long term (current) drug therapy; Z79.2 Long term (current) use of antibiotics; M10.9 Gout, unspecified; G62.9 Polyneuropathy, unspecified; Z79.52 Long term (current) use of systemic steroids; F17.210 Nicotine dependence, cigarettes, uncomplicated; X58.XXXA Exposure to other specified factors, initial encounter
CPT/HCPCS: 12002; 90471; 90714; 99283-25; A9270-GY

== ENCOUNTER 2020-09-13 11:40 | Emergency (ER) | payer OTHER ==
[~2020-09-13] VITALS: Ht 167.6 cm; Wt 81.7 kg
[~2020-09-13 11:40] MED LIST changes: +CEFP200 PO
[2020-09-13 13:21] LABS: BASOPHILS ABSOLUTE AUTO 0.08 K/mm3 (0.00-0.23); BASOPHILS PERCENT AUTO 1 % (0-2); EOSINOPHILS ABSOLUTE AUTO 0.04 K/mm3 (0.00-0.68); EOSINOPHILS PERCENT AUTO 0 % (0-6); Hematocrit 46.5 % (37.0-53.0); Hemoglobin 14.9 g/dL (13.5-17.5); IMMATURE GRAN ABSOLUTE AUTO 0.06 K/mm3 (0.00-0.10); IMMATURE GRAN PERCENT AUTO 1 % (0-1); LYMPHOCYTES ABSOLUTE AUTO 1.37 K/mm3 (0.84-5.20); LYMPHOCYTES PERCENT AUTO 10 % (21-46); MONOCYTES ABSOLUTE AUTO 0.45 K/mm3 (0.16-1.47); MONOCYTES PERCENT AUTO 3 % (4-13); Mean Corpuscular HGB 27.1 pg (26.0-34.0); Mean Corpuscular Volume 85 fL (80-100); Mean Platelet Volume 10.1 fL (9.1-12.4); NEUTROPHILS PERCENT AUTO 85 % (41-73); Platelet Count 316 K/mm3 (150-400); RDW Coefficient Variation 14.2 % (11.7-14.2); RDW Standard Deviation 43.3 fL (35.1-46.3)
[2020-09-13 13:40] LABS: Alanine Aminotransfer (ALT/SGP 24 U/L (12-78); Albumin, Blood 3.9 g/dL (3.4-5.0); Alk Phos 54 U/L (50-136); Anion Gap 6 mmol/L (6-16); Aspartate Aminotrans (AST/SGOT 19 U/L (12-37); Bilirubin, Total 0.6 mg/dL (0.1-1.0); Blood Urea Nitrogen 21 mg/dL (8-24); Bun/Creatinine Ratio 19.4 (12.0-20.0); CO2, Blood 26 mmol/L (21-32); Calcium, Blood 9.4 mg/dL (8.5-10.1); Chloride, Blood 109 mmol/L (98-108); Creatinine, Blood 1.08 mg/dL (0.60-1.20); Glomerular Filtration Rate >60 (60-); Glucose, Blood 114 mg/dL (70-99); Sodium, Blood 141 mmol/L (136-145); Total Protein, Blood 7.9 g/dL (6.4-8.2)
[2020-09-13 14:04] LABS: Source, Urine Clean Catch
[2020-09-13 14:07] LABS: Bilirubin, Urine Neg (Neg); Blood, Urine Neg (Neg); Glucose Qualitative, Urine Neg (Neg); Ketones, Urine Neg (Neg); Leukocyte Esterase, Urine Neg (Neg); Nitrite, Urine Neg (Neg); Protein, Urine Neg (Neg); Specific Gravity, Urine 1.015 (1.003-1.022); Urobilinogen, Urine NORM (Normal)
[2020-09-13 14:12] LABS: Appearance, Urine Clear (Clear); Color, Urine Yellow (P-Yellow)
== END 2020-09-13 15:01 | disposition home or self-care (01) ==
LOC: ER 11:40
PROVIDERS: Emergency Medicine
DX: R45.1 Restlessness and agitation (principal); R05 Cough; Z87.820 Personal history of traumatic brain injury; I10 Essential (primary) hypertension; F17.210 Nicotine dependence, cigarettes, uncomplicated; Z88.5 Allergy status to narcotic agent; Z91.013 Allergy to seafood; Z79.899 Other long term (current) drug therapy
CPT/HCPCS: 36415; 71045; 80053; 81003; 85025; 99285-25

== ENCOUNTER → 2020-12-03 | Outpatient (CLI) | payer OTHER ==
[~2020-12-03] MED LIST changes: +CITA20 PO; +MIRALAX17 GM PO
[2020-12-03 12:31] LABS: Appearance, Urine Clear (Clear); Bilirubin, Urine Neg (Neg); Blood, Urine Neg (Neg); Color, Urine Yellow (P-Yellow); Glucose Qualitative, Urine Neg (Neg); Ketones, Urine Neg (Neg); Leukocyte Esterase, Urine Neg (Neg); Nitrite, Urine Neg (Neg); Protein, Urine Neg (Neg); Specific Gravity, Urine 1.015 (1.003-1.022); Urobilinogen, Urine NORM (Normal)
== END | disposition home or self-care (01) ==
LOC: LAB SHORT 07:00 → LAB 07:00
PROVIDERS: Nurse Practitioner Family
DX: N39.0 Urinary tract infection, site not specified (principal)
CPT/HCPCS: 81003

== ENCOUNTER 2021-01-28 08:57 | Emergency (ER) | payer OTHER ==
[~2021-01-28] VITALS: Ht 165.1 cm; Wt 72.6 kg
[~2021-01-28 08:57] MED LIST changes: -CITA20 PO; -MIRALAX17 GM PO
[2021-01-28 09:27] LABS: BASOPHILS ABSOLUTE AUTO 0.05 K/mm3 (0.00-0.23); BASOPHILS PERCENT AUTO 0 % (0-2); EOSINOPHILS ABSOLUTE AUTO 0.16 K/mm3 (0.00-0.68); EOSINOPHILS PERCENT AUTO 1 % (0-6); Hematocrit 49.9 % (37.0-53.0); Hemoglobin 16.4 g/dL (13.5-17.5); IMMATURE GRAN ABSOLUTE AUTO 0.18 K/mm3 (0.00-0.10); IMMATURE GRAN PERCENT AUTO 2 % (0-1); LYMPHOCYTES ABSOLUTE AUTO 3.11 K/mm3 (0.84-5.20); LYMPHOCYTES PERCENT AUTO 27 % (21-46); MONOCYTES ABSOLUTE AUTO 0.94 K/mm3 (0.16-1.47); MONOCYTES PERCENT AUTO 8 % (4-13); Mean Corpuscular HGB 27.8 pg (26.0-34.0); Mean Corpuscular HGB Conc 32.9 g/dL (31.5-36.5); Mean Corpuscular Volume 85 fL (80-100); Mean Platelet Volume 9.4 fL (9.1-12.4); NEUTROPHILS PERCENT AUTO 62 % (41-73); Platelet Count 278 K/mm3 (150-400); RDW Coefficient Variation 15.2 % (11.7-14.2); RDW Standard Deviation 46.5 fL (35.1-46.3); Red Blood Cell Count 5.89 M/mm3 (4.30-5.90); White Blood Cell Count 11.54 K/mm3 (4.00-11.30)
[2021-01-28] MEDS ORDERED: CITA20 PO (09:32)
[2021-01-28] MEDS ORDERED: AMLO5 PO (09:32)
[2021-01-28 09:42] LABS: International Normalized Ratio 1.03
[2021-01-28 09:49] LABS: Alanine Aminotransfer (ALT/SGP 29 U/L (12-78); Albumin, Blood 3.3 g/dL (3.4-5.0); Albumin/Globulin Ratio 0.9 (0.8-1.8); Alk Phos 47 U/L (50-136); Anion Gap 5 mmol/L (6-16); Aspartate Aminotrans (AST/SGOT 12 U/L (12-37); Bilirubin, Total 0.7 mg/dL (0.1-1.0); Blood Urea Nitrogen 24 mg/dL (8-24); Bun/Creatinine Ratio 23.3 (12.0-20.0); CO2, Blood 28 mmol/L (21-32); Calcium, Blood 9.1 mg/dL (8.5-10.1); Chloride, Blood 109 mmol/L (98-108); Creatinine, Blood 1.03 mg/dL (0.60-1.20); Globulin, Blood 3.7 g/dL (2.2-4.0); Glomerular Filtration Rate >60 (60-); Glucose, Blood 73 mg/dL (70-99); Potassium, Blood 3.9 mmol/L (3.5-5.5); Sodium, Blood 142 mmol/L (136-145); Troponin I <0.015 ng/mL (0.000-0.040)
[2021-03-15] MEDS ORDERED: MIRALAX17 GM PO (14:22)
== END 2021-01-28 14:54 | disposition home or self-care (01) ==
LOC: ER 08:57
PROVIDERS: Emergency Medicine
DX: J40 Bronchitis, not specified as acute or chronic (principal); I10 Essential (primary) hypertension; I25.2 Old myocardial infarction; F17.210 Nicotine dependence, cigarettes, uncomplicated; Z79.899 Other long term (current) drug therapy
CPT/HCPCS: 36415; 71046; 80053; 83880; 84484; 85025; 85610; 93005; 93010; 99284-25

== ENCOUNTER 2021-06-08 02:57 | Observation (INO) | payer OTHER ==
[~2021-06-08 02:57] MED LIST changes: +CITA20 PO; +MIRALAX17 GM PO
[2021-06-08] MEDS ORDERED: Amlodipine Bes2.5 MG PO (12:17)
[2021-06-08] MEDS ORDERED: Celexa10 MG PO (12:18)
[2021-06-08] MEDS ORDERED: Ativan1 MG PO ×2 (12:18→15:22)
[2021-06-08] MEDS ORDERED: MIRALAX17 GM PO (12:18)
[2021-06-08] MEDS ORDERED: METO50 PO (12:18)
[2021-06-08] MEDS ORDERED: OMEP20ER PO (12:18)
[2021-06-08] MEDS ORDERED: PRED20 PO (12:19)
[2021-06-08] MEDS ORDERED: SENN187 PO (12:19)
[2021-06-08 13:31] LABS: Hematocrit 48.6 % (37.0-53.0); Mean Corpuscular HGB 30.7 pg (26.0-34.0); Mean Corpuscular HGB Conc 32.9 g/dL (31.5-36.5); Mean Corpuscular Volume 93 fL (80-100); Mean Platelet Volume 9.3 fL (9.1-12.4); Platelet Count 234 K/mm3 (150-400); RDW Standard Deviation 51.2 fL (35.1-46.3); Red Blood Cell Count 5.22 M/mm3 (4.30-5.90); White Blood Cell Count 10.45 K/mm3 (4.00-11.30)
[2021-06-08 14:07] LABS: BASOPHILS PERCENT MAN 0 % (0-2); EOSINOPHILS PERCENT MAN 0 % (0-6); LYMPHOCYTES ABSOLUTE MAN 3.55 K/mm3 (0.84-5.20); LYMPHOCYTES PERCENT MAN 34 % (21-46); MONOCYTES ABSOLUTE MAN 0.52 K/mm3 (0.16-1.47); MONOCYTES PERCENT MAN 5 % (4-13); NEUTROPHILS ABSOLUTE MAN 6.37 K/mm3 (1.96-9.15); SEG NEUTROPHILS PERCENT MAN 61 % (41-73); TOTAL CELLS COUNTED 100
[2021-06-08 14:24] LABS: Alanine Aminotransfer (ALT/SGP 27 U/L (12-78); Albumin, Blood 3.3 g/dL (3.4-5.0); Albumin/Globulin Ratio 0.9 (0.8-1.8); Alk Phos 90 U/L (50-136); Anion Gap 6 mmol/L (6-16); Aspartate Aminotrans (AST/SGOT 18 U/L (12-37); Bilirubin, Total 0.5 mg/dL (0.1-1.0); Blood Urea Nitrogen 22 mg/dL (8-24); Bun/Creatinine Ratio 20.8 (12.0-20.0); CO2, Blood 27 mmol/L (21-32); Calcium, Blood 8.4 mg/dL (8.5-10.1); Chloride, Blood 109 mmol/L (98-108); Creatinine, Blood 1.06 mg/dL (0.60-1.20); Globulin, Blood 3.7 g/dL (2.2-4.0); Glomerular Filtration Rate >60 (60-); Glucose, Blood 74 mg/dL (70-99); Potassium, Blood 3.8 mmol/L (3.5-5.5); Sodium, Blood 142 mmol/L (136-145)
--- NOTE | 2021-06-08 14:54 | NUR ---
ARRIVAL TO UNIT. PT ARRIVED TO UNIT FROM ER AT APPROX 1430. PT SLID FROM GURNEY TO BED WITH SLIDE SHEET. TOLERATED WELL. PT SITTING UP IN BED WATCHING TV, HE HAS BEEN SMILING AND FRIENDLY WITH STAFF, COOPERATIVE WITH CARE. ANSWERS QUESTIONS APPROPRIATLY, SLOW TO RESPOND TO QUESTIONS NOT YES/NO. THOUGHT YEAR WAS 1989 AND THAT HE WAS IN [place]. PT HAS REDNESS TO COCCYX, BRIEFS ARE DRY CURRENTLY. BARRIER CREAM PROVIDED AND PATIENT FLOATED ON PILLOWS. QUARTER SIZED BRUISE ON R HIP. IV FLUIDS INFUSING ON ARRIVAL FROM ER. PT TOLERATING PO WATER WELL, NO ISSUES WITH SWALLOWING. UNABLE TO ANSWER MEDICAL HISTORY QUESTIONS. CALL LIGHT IS IN REACH, PT ABLE TO CHANGE CHANNELS ON HIS OWN AND STATES HE WILL CALL FOR ANY NEEDS.
[2021-06-08] MEDS ORDERED: ALBU2.5V5 INH (15:19)
[2021-06-08] MEDS ORDERED: LOPE2C PO (15:21)
[2021-06-08] MEDS ORDERED: DULCOLAX400 MG/5 M PO (15:22)
[2021-06-08] MEDS ORDERED: SENNA LAXATIVE8.6 MG PO (15:23)
[2021-06-08] MEDS ORDERED: Seroquel Xr50 MG PO (15:24)
[2021-06-08 17:07] LABS: Source, Urine Clean Catch
--- NOTE | 2021-06-08 17:16 | NUR ---
PT UNABLE TO VOID, BLADDER SCAN OF 459. SPOKE WITH DR DO, ORDERS RECIEVED TO START FLOMAX AND STRAIGHT CATH. ORDERS TO BLADDER SCAN EVERY 6 HOURS AND STRAIGHT CATH IF OVER 300. PT TOLERATED WELL AND SAID IT FELT BETTER. CURRENTLY SITTING UP IN BED, REPOSITIONED ON 2 PILLOWS WITH HEELS FLOATED. UNDERWEAR CHANGED AT THAT TIME WELL. 475 OUT DURING CATH. SAMPLES SENT TO LAB.
--- NOTE | 2021-06-08 17:30 | NUR ---
NEMESIO FROM [facility] CALLED AT [phone] TO DISCUSS PATIENT CONDITION. SHE REPORTED SHE HAS BEEN FOLLOWING PATIENT FOR A FEW MONTHS. SHE REPORTS THAT PATIENT USES A WHEELCHAIR AT BASELINE AND IS VERY UNSTEADY ON HIS FEET WHEN ATTEMPTING TO WALK. SHE LEFT A NUMBER OF [phone] AND WOULD LIKE US TO CALL IF WE NEED ANYTHING OR HAVE ANY QUESTIONS. SHE IS ATTEMPTING TO FIND THE PATIENT PLACEMENT.
[2021-06-08 18:04] LABS: U Amphetamine Screen Not Detected; U Barbituate Screen Not Detected; U Benzodiazapine Screen DETECTED; U Buprenorphine Screen Not Detected; U Cannabinoids Screen Not Detected; U Cocaine Screen Not Detected; U Methadone Screen Not Detected; U Methamphetamine Screen Not Detected; U Opiates Screen Not Detected; U Oxycodone Screen Not Detected; U Phencyclidine Screen Not Detected; U Propoxyphene Screen Not Detected
[2021-06-08 18:08] LABS: Appearance, Urine Clear (Clear); Bilirubin, Urine Neg (Neg); Blood, Urine Neg (Neg); Color, Urine Yellow (P-Yellow); Glucose Qualitative, Urine Neg (Neg); Ketones, Urine Neg (Neg); Leukocyte Esterase, Urine Neg (Neg); Nitrite, Urine Neg (Neg); Protein, Urine Neg (Neg); Specific Gravity, Urine 1.015 (1.003-1.022); Urobilinogen, Urine 1+ (Normal)
--- NOTE | 2021-06-08 18:15 | NUR ---
PT CURRENTLY SITTING UP IN BED EATING DINNER. PT DENIES PAIN OR ANY NEEDS. FLOMAX GIVEN PER ORDERS. PT TOLERATING PO WELL. PT HAS CALL LIGHT IN REACH, HE HAS USED TO CHANGE CHANNEL. ANSWERS APPROPRIATLY WHEN ASKED.
--- NOTE | 2021-06-08 22:14 | NUR ---
ASSUMED CARE. AWAKES TO VERBAL STIMULI. ANSWERS YES AND NO QUESTIONS. DIFFICULT TO KNOW IF HE IS ORIENTED OR NOT. DENIES PAIN OR DISCOMFORT. DENIES NEED TO BE CHANGED OR TO USE THE BATHROOM. VS WNL. AFEBRILE. IVF INFUSING. PROTECTIVE DRESSING ON HEELS. HISTORY OF PRESSURE ULCERS. LUNGS ARE CLEAR. HR SINUS PER ASCULATION. CALL LIGHT REACH, BED ALARM ON.
--- NOTE | 2021-06-09 05:58 | NUR ---
SHIFT SUMMARY: RAMONA APPEARS TO BE AOX3 BUT HAS TBI WHICH CAUSES HIM TO HAVE APHAGIA. IS ABLE TO ANSWER WITH YES AND NO QUESTIONS OR STAT SHORT PHRASES. IS VERY PLEASANT AND COOPERATIVE. DENIED ANY CONCERNS OR ISSUES ALL NIGHT. IVF FINISHED THEN SL. UNABLE TO COLLECT UA HE VOIDED IN ATTENDS TWICE AND WAS UNABLE TO USE URINAL. BLADDER SCAN WAS 280. WILL SCAN THIS AM TO SEE IF HE NEEDS TO BE STRAIGHT CATH. DENIES PAIN OR DISCOMFORT. VS WNL. AFEBRILE. SLEPT THE ENTIRE SHIFT. NO OTHER CHANGES TO NOTE. CALL LIGHT IN REACH.
--- NOTE | 2021-06-09 14:10 | NUR ---
PT DISCHARGE TO F[facility]ILITY [facility]. RN UPDATED THIS AM AND PT ACCEPTED BACK TO FACILITY WITH THE HELP OF SENSITOMETRIST. IV DC'D. DENIES PAIN OR CP. PT RECEIVED FLUIDS. PT IS CALM AND COOPERATIVE NO OTHER CONCERNS RELATED TO PT BEHAVIOR. PT TRANSPORTED VIA GOURNEY. DISCHARGE PAPER WITH PT AND PT INSTRUCTED TO FOLLOW UP TO PCP WITHIN 2 WEEKS./ PT UNABLE TO SIGN DISCHARGE PAPER DUE TO CONTRACTURE. PT INCONTINENT AND LESS THAN 300ML URINE WHEN BLADDER SCAN TWICE THIS AM AND AFTERNOON.
== END 2021-06-09 14:09 ==
LOC: ER 02:57 → MEDS 02:58
PROVIDERS: Nurse Practitioner Acute Care; ADMIT Internal Medicine
DX: F10.27 Alcohol dependence with alcohol-induced persisting dementia (principal); R45.1 Restlessness and agitation; K21.9 Gastro-esophageal reflux disease without esophagitis; K22.10 Ulcer of esophagus without bleeding; I10 Essential (primary) hypertension; I95.9 Hypotension, unspecified; R06.02 Shortness of breath; R00.1 Bradycardia, unspecified; Z88.5 Allergy status to narcotic agent; Z91.013 Allergy to seafood
CPT/HCPCS: 36415; 80053; 81003; 82140; 83690; 83735; 85025; 94760; A9270; J1650; J7030

== ENCOUNTER → 2021-07-03 | Outpatient (CLI) | payer OTHER ==
[~2021-07-03] MED LIST changes: +Amlodipine Bes2.5 MG PO; +Celexa10 MG PO; +DULCOLAX400 MG/5 M PO; +LOPE2C PO; +SENN187 PO; +Seroquel Xr50 MG PO
== END | disposition home or self-care (01) ==
LOC: LAB SHORT 08:10 → LAB 08:10
DX: Z03.818 Encounter for observation for suspected exposure to other biological agents ruled out (principal)
CPT/HCPCS: U0003

== ENCOUNTER → 2021-08-03 | Outpatient (CLI) | payer OTHER ==
[2021-08-05 16:38] LABS: CORONAVIRUS (COVID19) CSH-NRL Negative (Negative)
== END | disposition home or self-care (01) ==
LOC: LAB SHORT 08:00
PROVIDERS: Nurse Practitioner Family
DX: Z20.822 Contact with and (suspected) exposure to COVID-19 (principal)
CPT/HCPCS: U0003

== ENCOUNTER → 2021-08-06 | Outpatient (CLI) | payer OTHER | END | disposition home or self-care (01) | LOC: LAB SHORT 15:23 → LAB 15:23 | DX: Z20.822 Contact with and (suspected) exposure to COVID-19 (principal) | CPT/HCPCS: U0003 ==

== ENCOUNTER 2021-08-20 19:55 | Emergency (ER) | payer OTHER ==
[~2021-08-20] VITALS: Ht 162.6 cm; Wt 77.1 kg
[2021-08-20 20:44] LABS: Anion Gap 4 mmol/L (6-16); Blood Urea Nitrogen 16 mg/dL (8-24); CO2, Blood 27 mmol/L (21-32); Calcium, Blood 8.7 mg/dL (8.5-10.1); Chloride, Blood 109 mmol/L (98-108); Creatinine, Blood 0.84 mg/dL (0.60-1.20); Glomerular Filtration Rate >60 (60-); Glucose, Blood 117 mg/dL (70-99); Magnesium, Blood 2.1 mg/dL (1.6-2.4); Potassium, Blood 4.6 mmol/L (3.5-5.5); Sodium, Blood 140 mmol/L (136-145)
[2021-08-20 22:19] LABS: Bilirubin, Urine Neg (Neg); Blood, Urine Neg (Neg); Glucose Qualitative, Urine Neg (Neg); Ketones, Urine Neg (Neg); Leukocyte Esterase, Urine Neg (Neg); Nitrite, Urine Neg (Neg); Protein, Urine Neg (Neg); Urobilinogen, Urine 1+ (Normal)
[2021-08-20 22:22] LABS: Appearance, Urine Clear (Clear); Color, Urine Yellow (P-Yellow)
== END 2021-08-20 23:41 ==
LOC: ER 19:55
PROVIDERS: Student in an Organized Health Care Education/Training Program
DX: R00.1 Bradycardia, unspecified (principal); R53.83 Other fatigue; F03.90 Unspecified dementia, unspecified severity, without behavioral disturbance, psychotic disturbance, mood disturbance, and anxiety; T50.905A Adverse effect of unspecified drugs, medicaments and biological substances, initial encounter; I10 Essential (primary) hypertension; F17.210 Nicotine dependence, cigarettes, uncomplicated; Z88.5 Allergy status to narcotic agent; Z91.013 Allergy to seafood; Z79.899 Other long term (current) drug therapy
CPT/HCPCS: 51701; 51798; 80048; 81003; 83735; 93005; 93010; 99284-25

== ENCOUNTER 2021-08-23 08:57 | Emergency (ER) | payer OTHER ==
[~2021-08-23] VITALS: Ht 167.6 cm; Wt 81.7 kg
== END 2021-08-23 11:44 | disposition home or self-care (01) ==
LOC: ER 08:57
DX: S51.011A Laceration without foreign body of right elbow, initial encounter (principal); I10 Essential (primary) hypertension; F17.210 Nicotine dependence, cigarettes, uncomplicated; Z88.5 Allergy status to narcotic agent; Z91.013 Allergy to seafood; Z79.899 Other long term (current) drug therapy; W18.30XA Fall on same level, unspecified, initial encounter
CPT/HCPCS: 99283-25

== ENCOUNTER 2021-10-26 07:00 | Emergency (ER) | payer OTHER ==
[~2021-10-26] VITALS: Ht 172.7 cm; Wt 68.0 kg
[~2021-10-26 07:00] MED LIST changes: +DIVA125 PO; +LORA2 PO
== END 2021-10-26 08:10 | disposition home or self-care (01) ==
LOC: ER 07:00
DX: S61.412A Laceration without foreign body of left hand, initial encounter (principal); S20.211A Contusion of right front wall of thorax, initial encounter; I10 Essential (primary) hypertension; Z79.899 Other long term (current) drug therapy; Z88.5 Allergy status to narcotic agent; W19.XXXA Unspecified fall, initial encounter
CPT/HCPCS: 99283

== ENCOUNTER 2021-11-09 19:56 | Emergency (ER) | payer OTHER ==
[~2021-11-09] VITALS: Ht 170.2 cm; Wt 65.8 kg
[2022-02-09] MEDS ORDERED: Zithromax250 MG PO (12:02)
== END 2021-11-09 23:20 | disposition home or self-care (01) ==
LOC: ER 19:56
DX: F41.9 Anxiety disorder, unspecified (principal); I10 Essential (primary) hypertension; M10.9 Gout, unspecified; F03.90 Unspecified dementia, unspecified severity, without behavioral disturbance, psychotic disturbance, mood disturbance, and anxiety; F17.210 Nicotine dependence, cigarettes, uncomplicated; G62.9 Polyneuropathy, unspecified; Z88.5 Allergy status to narcotic agent; Z91.013 Allergy to seafood; Z79.899 Other long term (current) drug therapy
CPT/HCPCS: 99284; A9270

== ENCOUNTER 2022-05-21 15:02 | Emergency (ER) | payer OTHER ==
[~2022-05-21] VITALS: Ht 167.6 cm; Wt 83.9 kg
[~2022-05-21 15:02] MED LIST changes: +Zithromax250 MG PO
== END 2022-05-21 21:43 | disposition home or self-care (01) ==
LOC: ER 15:02
DX: Z04.89 Encounter for examination and observation for other specified reasons (principal); F17.210 Nicotine dependence, cigarettes, uncomplicated; N18.9 Chronic kidney disease, unspecified; Z79.899 Other long term (current) drug therapy; Z79.52 Long term (current) use of systemic steroids; Z88.5 Allergy status to narcotic agent; Z91.013 Allergy to seafood
CPT/HCPCS: 70450; 72125; A9270

== ENCOUNTER 2022-05-24 10:23 | Emergency (ER) | payer OTHER ==
[~2022-05-24] VITALS: Ht 167.6 cm; Wt 65.8 kg
[2022-05-24] MEDS ORDERED: IBUP600 PO (12:53)
== END 2022-05-24 14:15 | disposition home or self-care (01) ==
LOC: ER 10:23
DX: M25.551 Pain in right hip (principal); F17.210 Nicotine dependence, cigarettes, uncomplicated; W19.XXXA Unspecified fall, initial encounter
CPT/HCPCS: 73502; 99283-25

== ENCOUNTER 2022-09-02 10:21 | Emergency (ER) | payer OTHER ==
[~2022-09-02] VITALS: Ht 175.3 cm; Wt 81.7 kg
[2022-09-02] MEDS ORDERED: Ventolin5 MG/1 ML INH (10:34)
[2022-09-02] MEDS ORDERED: Ativan1 MG PO (10:35)
[2022-09-02] MEDS ORDERED: ALBU90OI INH (10:36)
[2022-09-02 11:23] LABS: Hematocrit 49.1 % (37.0-53.0); Hemoglobin 15.9 g/dL (13.5-17.5); Mean Corpuscular HGB 29.6 pg (26.0-34.0); Mean Corpuscular HGB Conc 32.4 g/dL (31.5-36.5); Mean Corpuscular Volume 91 fL (80-100); Mean Platelet Volume 9.9 fL (9.1-12.4); Platelet Count 247 K/mm3 (150-400); RDW Coefficient Variation 14.4 % (11.7-14.2); RDW Standard Deviation 48.2 fL (35.1-46.3); Red Blood Cell Count 5.37 M/mm3 (4.30-5.90); White Blood Cell Count 12.04 K/mm3 (4.00-11.30)
[2022-09-02 11:45] LABS: Albumin, Blood 3.1 g/dL (3.4-5.0); Albumin/Globulin Ratio 0.8 (0.8-1.8); Bilirubin, Total 0.7 mg/dL (0.1-1.0); Bun/Creatinine Ratio 37.3 (12.0-20.0); Calcium, Blood 9.8 mg/dL (8.5-10.1); Creatinine, Blood 0.86 mg/dL (0.60-1.20); Globulin, Blood 3.9 g/dL (2.2-4.0); Potassium, Blood 3.6 mmol/L (3.5-5.5)
[2022-09-02 12:56] LABS: BAND PERCENT MAN 6 % (0-8); BASOPHILS PERCENT MAN 0 % (0-2); EOSINOPHILS ABSOLUTE MAN 0.12 K/mm3 (0.00-0.68); EOSINOPHILS PERCENT MAN 1 % (0-6); LYMPHOCYTES ABSOLUTE MAN 3.25 K/mm3 (0.84-5.20); LYMPHOCYTES PERCENT MAN 27 % (21-46); METAMYELOCYTE ABSOLUTE MAN 0.12 K/mm3 (0.00-0.00); METAMYELOCYTE PERCENT MAN 1 % (0-0); MONOCYTES ABSOLUTE MAN 0.84 K/mm3 (0.16-1.47); MONOCYTES PERCENT MAN 7 % (4-13); MYELOCYTE ABSOLUTE MAN 0.24 K/mm3 (0.00-0.00); MYELOCYTE PERCENT MAN 2 % (0-0); NEUTROPHILS ABSOLUTE MAN 7.46 K/mm3 (1.96-9.15); SEG NEUTROPHILS PERCENT MAN 56 % (41-73); TOTAL CELLS COUNTED 100
[2022-09-02 13:37] LABS: Source, Urine Clean Catch
[2022-09-02 13:48] LABS: Appearance, Urine Hazy (Clear); Bilirubin, Urine Neg (Neg); Blood, Urine 4+ (Neg); Color, Urine Amber (P-Yellow); Glucose Qualitative, Urine Neg (Neg); Ketones, Urine 2+ (Neg); Leukocyte Esterase, Urine 2+ (Neg); Nitrite, Urine Pos (Neg); Protein, Urine 1+ (Neg); Urobilinogen, Urine 2+ (Normal)
[2022-09-02 14:03] LABS: Bacteria Many /hpf; Hyaline Casts 0-2 /lpf (0-2); Squamous Epithelial Cells Rare /hpf (Few); White Blood Cells, Urine 25-50 /hpf (0-5)
[2022-09-02] MEDS ORDERED: CEFD300 PO (14:15)
== END 2022-09-02 15:57 | disposition home or self-care (01) ==
LOC: ER 10:21
PROVIDERS: Emergency Medicine
DX: N39.0 Urinary tract infection, site not specified (principal); R63.0 Anorexia; Z88.5 Allergy status to narcotic agent; Z91.013 Allergy to seafood; Z79.899 Other long term (current) drug therapy; Z68.26 Body mass index [BMI] 26.0-26.9, adult
CPT/HCPCS: 36415; 51701; 80053; 81001; 83690; 84484; 85025; 87077; 87086; 87186; 93005; 93010; 99284-25; A9270

== ENCOUNTER 2022-09-12 08:57 | Emergency (ER) | payer OTHER ==
[~2022-09-12] VITALS: Ht 165.1 cm; Wt 63.5 kg
[~2022-09-12 08:57] MED LIST changes: +ALBU90OI INH; +CEFD300 PO; +Ventolin5 MG/1 ML INH
[2022-09-12 09:27] LABS: Source, Urine Clean Catch
[2022-09-12 09:32] LABS: Bilirubin, Urine Neg (Neg); Blood, Urine Neg (Neg); Glucose Qualitative, Urine Neg (Neg); Ketones, Urine Neg (Neg); Leukocyte Esterase, Urine Neg (Neg); Nitrite, Urine Neg (Neg); Protein, Urine Neg (Neg); Urobilinogen, Urine NORM (Normal)
[2022-09-12 09:38] LABS: Appearance, Urine Clear (Clear); Color, Urine Yellow (P-Yellow)
[2022-09-12 10:06] LABS: Hematocrit 44.1 % (37.0-53.0); Hemoglobin 14.6 g/dL (13.5-17.5); Mean Corpuscular HGB Conc 33.1 g/dL (31.5-36.5); Mean Corpuscular Volume 91 fL (80-100); Mean Platelet Volume 9.2 fL (9.1-12.4); Platelet Count 298 K/mm3 (150-400); RDW Coefficient Variation 13.9 % (11.7-14.2); RDW Standard Deviation 46.1 fL (35.1-46.3); Red Blood Cell Count 4.87 M/mm3 (4.30-5.90); White Blood Cell Count 14.12 K/mm3 (4.00-11.30)
[2022-09-12 10:14] LABS: Albumin, Blood 2.6 g/dL (3.4-5.0); Albumin/Globulin Ratio 0.8 (0.8-1.8); Bilirubin, Total 0.3 mg/dL (0.1-1.0); Bun/Creatinine Ratio 24.9 (12.0-20.0); Calcium, Blood 8.3 mg/dL (8.5-10.1); Creatinine, Blood 0.8 mg/dL (0.60-1.20); Globulin, Blood 3.2 g/dL (2.2-4.0); Potassium, Blood 3.8 mmol/L (3.5-5.5); Total Protein, Blood 5.8 g/dL (6.4-8.2)
[2022-09-12 10:23] LABS: BAND PERCENT MAN 5 % (0-8); BASOPHILS ABSOLUTE MAN 0.14 K/mm3 (0.00-0.23); BASOPHILS PERCENT MAN 1 % (0-2); EOSINOPHILS ABSOLUTE MAN 0.14 K/mm3 (0.00-0.68); EOSINOPHILS PERCENT MAN 1 % (0-6); LYMPHOCYTES ABSOLUTE MAN 2.82 K/mm3 (0.84-5.20); LYMPHOCYTES PERCENT MAN 20 % (21-46); METAMYELOCYTE ABSOLUTE MAN 0.14 K/mm3 (0.00-0.00); METAMYELOCYTE PERCENT MAN 1 % (0-0); MONOCYTES ABSOLUTE MAN 0.56 K/mm3 (0.16-1.47); MONOCYTES PERCENT MAN 4 % (4-13); MYELOCYTE ABSOLUTE MAN 0.42 K/mm3 (0.00-0.00); MYELOCYTE PERCENT MAN 3 % (0-0); NEUTROPHILS ABSOLUTE MAN 9.88 K/mm3 (1.96-9.15); SEG NEUTROPHILS PERCENT MAN 65 % (41-73); TOTAL CELLS COUNTED 100
== END 2022-09-12 14:10 | disposition home or self-care (01) ==
LOC: ER 08:57
PROVIDERS: Family Medicine
DX: R41.82 Altered mental status, unspecified (principal); R06.82 Tachypnea, not elsewhere classified; R00.1 Bradycardia, unspecified; D72.829 Elevated white blood cell count, unspecified; F03.90 Unspecified dementia, unspecified severity, without behavioral disturbance, psychotic disturbance, mood disturbance, and anxiety; F17.210 Nicotine dependence, cigarettes, uncomplicated; Z88.5 Allergy status to narcotic agent; Z91.013 Allergy to seafood; Z79.899 Other long term (current) drug therapy
CPT/HCPCS: 36415; 71045; 80053; 81003; 82977; 83690; 84484; 85025; 93005; 93010; J7120

== ENCOUNTER 2022-11-04 11:05 | Emergency (ER) | payer OTHER ==
[~2022-11-04] VITALS: Ht 167.6 cm; Wt 72.6 kg
== END 2022-11-04 12:08 | disposition home or self-care (01) ==
LOC: ER 11:05
DX: L72.3 Sebaceous cyst (principal); F03.90 Unspecified dementia, unspecified severity, without behavioral disturbance, psychotic disturbance, mood disturbance, and anxiety; F17.210 Nicotine dependence, cigarettes, uncomplicated; Z88.5 Allergy status to narcotic agent; Z91.013 Allergy to seafood; Z79.899 Other long term (current) drug therapy; Z79.52 Long term (current) use of systemic steroids
CPT/HCPCS: 99283

== ENCOUNTER 2023-03-03 13:33 | Inpatient (IN) | payer OTHER ==
[~2023-03-03] VITALS: Ht 165.1 cm; Wt 56.3 kg
[2023-03-03 15:22] LABS: BASOPHILS ABSOLUTE AUTO 0.12 K/mm3 (0.00-0.23); BASOPHILS PERCENT AUTO 2 % (0-2); EOSINOPHILS ABSOLUTE AUTO 0.98 K/mm3 (0.00-0.68); EOSINOPHILS PERCENT AUTO 12 % (0-6); Hemoglobin 14.4 g/dL (13.5-17.5); IMMATURE GRAN ABSOLUTE AUTO 0.03 K/mm3 (0.00-0.10); IMMATURE GRAN PERCENT AUTO 0 % (0-1); LYMPHOCYTES ABSOLUTE AUTO 1.74 K/mm3 (0.84-5.20); LYMPHOCYTES PERCENT AUTO 22 % (21-46); MONOCYTES ABSOLUTE AUTO 0.88 K/mm3 (0.16-1.47); MONOCYTES PERCENT AUTO 11 % (4-13); Mean Corpuscular HGB 28.7 pg (26.0-34.0); Mean Corpuscular HGB Conc 32.7 g/dL (31.5-36.5); Mean Corpuscular Volume 88 fL (80-100); Mean Platelet Volume 9.9 fL (9.1-12.4); NEUTROPHILS ABSOLUTE AUTO 4.28 K/mm3 (1.96-9.15); NEUTROPHILS PERCENT AUTO 53 % (41-73); Platelet Count 318 K/mm3 (150-400); RDW Coefficient Variation 15.8 % (11.7-14.2); RDW Standard Deviation 50.4 fL (35.1-46.3); Red Blood Cell Count 5.02 M/mm3 (4.30-5.90); White Blood Cell Count 8.03 K/mm3 (4.00-11.30)
[2023-03-03 15:40] LABS: Albumin/Globulin Ratio 0.8 (0.8-1.8); Bilirubin, Total 1.5 mg/dL (0.1-1.0); Bun/Creatinine Ratio 12.1 (12.0-20.0); Calcium, Blood 8.6 mg/dL (8.5-10.1); Creatinine, Blood 0.91 mg/dL (0.60-1.20); Globulin, Blood 3.7 g/dL (2.2-4.0); Potassium, Blood 3.9 mmol/L (3.5-5.5); Total Protein, Blood 6.7 g/dL (6.4-8.2)
[2023-03-03 21:06] VITALS: BP 121/75
--- NOTE | 2023-03-04 00:08 | NUR ---
PATIENT ARRIVED VIA WHEEL CHAIR @ APPROX 2100, ORIENTED TO CALL LIGHT AND ROOM. ORDERS REVIEWED AND IVF STARTED. TELE PLACED AND VERIFIED. CALL FROM PHOTOGRAPHIC LABORATORY TECHNICIAN @ APPOX 2230 REPORTING PATIENT HAVING HAD A ABOUT A MIN AND HALF OF TRIGEMENY, CURRENTLY PATIENT IS SINUS LUIS @ 48 BPM. CALL MADE TO RELAY [facility]. NO ORDERS RECIEVED CONTINUE TO MONITOR. VSS AT THIS TIME. REPORTS NO CHEST PAIN SOB OR PRESSURE. PATIENT IS AOX2. BED ALARM IS ON.
[2023-03-04 04:51] VITALS: BP 104/89
[2023-03-04 05:02] LABS: International Normalized Ratio 1.09; Prothrombin Time Results 11.4 Sec (9.7-11.5)
[2023-03-04 05:06] LABS: Albumin, Blood 2.6 g/dL (3.4-5.0); Albumin/Globulin Ratio 0.7 (0.8-1.8); Bilirubin, Total 1.6 mg/dL (0.1-1.0); Bun/Creatinine Ratio 9.6 (12.0-20.0); Calcium, Blood 8.9 mg/dL (8.5-10.1); Creatinine, Blood 0.73 mg/dL (0.60-1.20); Globulin, Blood 3.6 g/dL (2.2-4.0); Potassium, Blood 3.4 mmol/L (3.5-5.5); Total Protein, Blood 6.2 g/dL (6.4-8.2)
--- NOTE | 2023-03-04 05:13 | NUR ---
SHIFT SUMMARY PATIENT IS AOX2-3 HX OF TBI AND DEMENTIA. ADMIT FOR ACUTE CLINT. NPO SINCE ARRIVAL TO UNIT. DENIES PAIN AND N/V. REPOSITIONS SELF IN BED. RESIDES AT [facility]. ABLE TO ANSWER LIMITED MEDICAL QUESTIONS. IVF RUNNING. ATTENDS IN PLACE PATIENT IS INCONT.BED ALARM IS ON,VSS. CALL LIGHT IS IN REACH. CONT. TO MONITOR FOR CHANGES AND TREAT PER ORDERS.
[2023-03-04 08:22] VITALS: BP 120/71
[2023-03-04 14:59] VITALS: BP 119/76
--- NOTE | 2023-03-04 16:19 | NUR ---
Pt resting sleeping most of the day. Review of notes we have assited this patient with advance care planning after his cardiac arrest. We completed a polst with his son of DNR limited treatment. Pt son struggled with anger towards his father over his substance abuse. Pt son is a with some struggles of his own from the . custodial states they have been trying to contact his son with no success. Pt is very fragile, surgeon of concern if he will not tolerate a surgical intervention. He is not complaining of pain at this time. After great thought and discussion with physicians will continue supportive care and we will get a decision maker as he cannot consent to surgery. He has a top case assembler at the [facility] we will contact monday for support may need guardian. custodial nurse stated he has been declining may be better served by hospice or palliativ care. He is hisgh risk for not tolerting anesthesia.
--- NOTE | 2023-03-04 18:48 | NUR ---
SHIFT SUMMARY NO ACUTE CHANGES THIS SHIFT. PALLIATIVE CARE INVOLVED IN PATIENTS CASE DUE TO UNCERTAINTY REGARDING POA/GAURDIANSHIP FOR PATIENT PATIENT IS COGNITIVELY UNABLE TO MAKE DECISIONS FOR SELF. AFTER DISCUSSION WITH MULTIPLE DISCIPLINARIES INCLUDING THE SURGEON AND PALLIATIVE CARE NURSE, IT WAS DECIDED TO HOLD SURGERY AND PROVIDE SUPPORTIVE, NON-OPERATIVE CARE AT THIS TIME. PATIENT DOES NOT APPEAR TO BE IN ANY PAIN/DISTRESS, PATIENT DENIES PAIN WHEN ASKED, ALTHOUGH NODS YES/NO TO MOST THINGS. IVF PER EMAR, PATIENT IS TOELRATING REGULAR PO DIET ALTHOUGH HAD MINIMAL INTAKE T/O SHIFT. PATIENT REPOSITIONS SELF WELL IN BED. ATTENDS IN PALCE & DRY T/O, CONDOM CATH IN PLACE DRAINING WELL TO GRAVITY. CALL LIGHT IN REACH, HAS NOT SHOWN USE OF THIS TIME. WILL REPORT TO ONCOMING RN AT 1900.
[2023-03-04 19:13] VITALS: BP 116/73
[2023-03-05 03:46] VITALS: BP 145/84
[2023-03-05 04:41] LABS: BASOPHILS ABSOLUTE AUTO 0.14 K/mm3 (0.00-0.23); BASOPHILS PERCENT AUTO 2 % (0-2); EOSINOPHILS ABSOLUTE AUTO 0.92 K/mm3 (0.00-0.68); EOSINOPHILS PERCENT AUTO 13 % (0-6); Hematocrit 38.4 % (37.0-53.0); Hemoglobin 12.6 g/dL (13.5-17.5); IMMATURE GRAN ABSOLUTE AUTO 0.02 K/mm3 (0.00-0.10); IMMATURE GRAN PERCENT AUTO 0 % (0-1); LYMPHOCYTES ABSOLUTE AUTO 1.91 K/mm3 (0.84-5.20); LYMPHOCYTES PERCENT AUTO 27 % (21-46); MONOCYTES ABSOLUTE AUTO 0.75 K/mm3 (0.16-1.47); MONOCYTES PERCENT AUTO 11 % (4-13); Mean Corpuscular HGB 28.6 pg (26.0-34.0); Mean Corpuscular HGB Conc 32.8 g/dL (31.5-36.5); Mean Corpuscular Volume 87 fL (80-100); Mean Platelet Volume 10.4 fL (9.1-12.4); NEUTROPHILS ABSOLUTE AUTO 3.29 K/mm3 (1.96-9.15); NEUTROPHILS PERCENT AUTO 47 % (41-73); Platelet Count 278 K/mm3 (150-400); RDW Coefficient Variation 15.6 % (11.7-14.2); RDW Standard Deviation 49.9 fL (35.1-46.3); Red Blood Cell Count 4.41 M/mm3 (4.30-5.90); White Blood Cell Count 7.03 K/mm3 (4.00-11.30)
--- NOTE | 2023-03-05 05:00 | NUR ---
SHIFT SUMMARY AOX1-NAME & . UNAWARE PLACE, SITUATION OR DATE. ABLE TO FOLLOW SIMPLE DIRECTIONS. RESPONDS TO YES/NO QUESTIONS OR NODS HEAD TO QUESTIONS. IF OPEN ENDED QUESTION, PT WILL RESPOND WITH NONSENSICAL RESPONSE. IS VERY SOFT SPOKEN. VSS. TELE NSR HR 78. DENIES ANY ABD PAIN OR N/V. TOLERATING REG DIET. CONDOM CATH IN PLACE, DRAINING TO GRAVITY. AWAITING FURTHER CARE DECISIONS. CALL LIGHT & BED ALARM IN PLACE FOR SAFETY. WILL MONITOR.
[2023-03-05 05:05] LABS: Albumin, Blood 2.4 g/dL (3.4-5.0); Albumin/Globulin Ratio 0.7 (0.8-1.8); Bilirubin, Total 1.3 mg/dL (0.1-1.0); Calcium, Blood 8.4 mg/dL (8.5-10.1); Creatinine, Blood 0.7 mg/dL (0.60-1.20); Globulin, Blood 3.3 g/dL (2.2-4.0); Potassium, Blood 3.5 mmol/L (3.5-5.5); Total Protein, Blood 5.7 g/dL (6.4-8.2)
[2023-03-05 07:29] VITALS: BP 152/83
[2023-03-05 15:04] VITALS: BP 134/91
--- NOTE | 2023-03-05 16:36 | NUR ---
SHIFT SUMMARY PT IS AXO X2, ORIENTED TO SELF AND PLACE. WAITING FOR POSSIBLE SURGERY FOR CHOLECYSTITIS BASED ON CONTACT WITH ASSIGNED INFANT BABYSITTER. AMBULATED WITH PHYSICAL THERAPY. 1 PERSON ASSIST MOVING FROM BED TO CHAIR WITH WALKER. PT IS INCONTINENT, ATTENDS IN PLACE. TOLERATING REGULAR DIET: PASSING GAS, URINATING, AND DEFACATING APPROPRIATELY. HAS BEEN EDUCATED ON THE USE OF CALL LIGHT BUT UNABLE TO SHOW APPROPRIATE USE OF CALL LIGHT.
[2023-03-05 19:54] VITALS: BP 126/99
[2023-03-06 03:00] VITALS: BP 131/77
[2023-03-06 04:37] LABS: Albumin, Blood 2.4 g/dL (3.4-5.0); Albumin/Globulin Ratio 0.6 (0.8-1.8); Bilirubin, Total 0.9 mg/dL (0.1-1.0); Bun/Creatinine Ratio 14.8 (12.0-20.0); Calcium, Blood 8.3 mg/dL (8.5-10.1); Creatinine, Blood 0.68 mg/dL (0.60-1.20); Potassium, Blood 4.1 mmol/L (3.5-5.5); Total Protein, Blood 6.4 g/dL (6.4-8.2)
--- NOTE | 2023-03-06 05:37 | NUR ---
COMMUNICATION W/DANTE MENA THIS NURSE JUST GOT OFF PHONE c LEAD MED TECH ROBERTO OLSON. SHE CALLED FOR AN UPDATE ON PT. INFORMED HER WE WERE WAITING TO CONTACT BUTTON SEWER HAND TODAY FOR POSSIBLE POA. TO HELP MAKE DECISION ON POSS SURGERY SINCE SON IS UNABLE TO BE CONTACTED. ROBERTO INFORMED THIS NURSE THAT SONS NAME IS JESSICA DAN c PHONE #[phone] & SHE HASNT BEEN ABLE TO CONTACT HIM FOR 3 WKS. ALSO REPORTED SOCIAL WORKERS NAME IS YEHUDA. ASKED TECH IF ANYONE HAD TRIED TO CONTACT "MOTHER" SINCE I HAD SEEN A NOTE IN PT ROOM SAYING "[facility]" c PHONE NUMBER, ROBERTO STATED PTS MOTHER IS & HE HAS NO OTHER FAMILY BESIDES SON & THAT 2 WOMEN TRY TO "PRETEND THEY ARE FAMILY TO GET INFORMATION". THE ONLY PEOPLE ALLOWED INFORMATION ARE: ROBERTO OLSON, SIVA MERCER & DECLAN MENDOZAOR. PASSED INFORMATION TO CHARGE NURSE HIWOT Flores
--- NOTE | 2023-03-06 05:46 | NUR ---
SHIFT SUMMARY NO ACUTE CHANGES THIS SHIFT. AOX1-SELF & FOLLOWING DIRECTIONS. STATES "I DONT KNOW" TO REST OF ORIENTATION QUESTIONS. VSS. TELE NSR c PVC HR 76. DENIES PAIN, N/V. TOLERATING DIET. AWAITING PLAN FOR SURGERY. CALL LIGHT & BED ALARM IN PLACE.
--- NOTE | 2023-03-06 13:10 | NUR ---
Spiritual care visit conducted. Patient is very pleasant and confused. He stated that he is 32 y/o and lives with his mother (EMR says he is 62 y/o and lives at [facility]). He denied living at [facility] later in the conversation as well. He says he has no family and that he has some good friends. He says that he is a Taoist and believes in God. He states that mentally and emotionally he is doing good. He does not know why he is in the hospital or how he arrived. He agrees to having a prayer said for him which I gladly provide. Patient appears to continue being in a good space and shows no signs of spiritual distress. I will continue to remain available to patient and family.
--- NOTE | 2023-03-06 18:40 | NUR ---
SHIFT SUMMARY PT ALERT, RESPONDS WELL WITH CARE/PLEASANT, DONNIE PO PUREED DIET/NECTOR THICK/FULL MEAL ASSIST/UP TO CHAIR-DYSPHAGIA PRECAUTIONS, VOIDING/INCONTINENT, DENIES PAIN, AMB 1 PP MOD ASSIST, SL, TELE DC'D, PLAN FOR DC TOMORROW. WILL REPORT TO ONCOMING NOC RN.
[2023-03-06 19:40] VITALS: BP 117/83
[2023-03-07 03:27] VITALS: BP 137/93
--- NOTE | 2023-03-07 06:18 | NUR ---
SHIFT SUMMARY NO ACUTE CHANGES THIS SHIFT. AOX1-SELF ONLY. PLEASENT & COOPERATIVE c CARE. DENIES ANY PAIN, N/V. ACTIVE BT. TOLERATING PO. INCONT, CHANGED & REPOSITIONED PRN. POSS DC TODAY. CALL LIGHT & BED ALARM IN PLACE.
[2023-03-07 07:26] VITALS: BP 108/52
--- NOTE | 2023-03-07 11:54 | NUR ---
DISCHARGE SUMMARY PT A&OX1, VSS/RA, DONNIE PO, VOIDING/INCONTINENT/ATTENDS ON, DENIES PAIN, STAND PIVOT TO CHAIR/FULL MEAL ASSIST. LEFT FLOOR VIA WC WITH TRANSPORT TO [facility] WITH ALL PERSONAL POSSESSIONS. IV DC'D.
--- NOTE | 2023-03-07 14:25 | NUR ---
contacted by [facility] they were able to get two care provider osvaldo. They wanted to confirm hospice is still the best plan of care for the patient. Diligently reviewed the chart with them and we confirmed prognosis. They spoke with his primary care provider and they also agree on hospice. They will do intake tomorrow. DME delivered today.
== END 2023-03-07 10:35 | disposition hospice, home (50) | DRG 445 ==
LOC: ER 13:33 → SURS 20:05
PROVIDERS: Emergency Medicine; Family Medicine; Student in an Organized Health Care Education/Training Program; ADMIT Internal Medicine
DX: K80.00 Calculus of gallbladder with acute cholecystitis without obstruction (principal); E46 Unspecified protein-calorie malnutrition; Z68.1 Body mass index [BMI] 19.9 or less, adult; R64 Cachexia; Z66 Do not resuscitate; Z51.5 Encounter for palliative care; R00.1 Bradycardia, unspecified; K76.0 Fatty (change of) liver, not elsewhere classified; E87.6 Hypokalemia; I95.9 Hypotension, unspecified; F17.210 Nicotine dependence, cigarettes, uncomplicated; I12.9 Hypertensive chronic kidney disease with stage 1 through stage 4 chronic kidney disease, or unspecified chronic kidney disease; N18.9 Chronic kidney disease, unspecified; D63.1 Anemia in chronic kidney disease; F03.90 Unspecified dementia, unspecified severity, without behavioral disturbance, psychotic disturbance, mood disturbance, and anxiety; G62.9 Polyneuropathy, unspecified; M10.9 Gout, unspecified; Z87.820 Personal history of traumatic brain injury; Z86.74 Personal history of sudden cardiac arrest; Z91.013 Allergy to seafood; Z88.5 Allergy status to narcotic agent; Z87.09 Personal history of other diseases of the respiratory system; Z93.1 Gastrostomy status; Z98.890 Other specified postprocedural states; Z79.51 Long term (current) use of inhaled steroids; Z79.899 Other long term (current) drug therapy
CPT/HCPCS: 36415; 74177; 76705; 80053; 83690; 83735; 85025; 85610; 93005; 93010; 94760; 96365-59; 97116; 97161; 97165; 97535; 99285-25; A9270; J2543; J2795; J3475; J3480; J7030; J7050; J7512; Q9967